=== PATIENT | female | born 1950 | race Caucasian/White ===

== ENCOUNTER 2016-08-13 10:58 | Inpatient (IN) | payer MEDICAID ==
[~2016-08-13] VITALS: Ht 157.5 cm; Wt 131.5 kg
[~2016-08-13 10:58] MED LIST: BUDE180A ORAL INH; CLOP75TA33 PO; LEVO25TA PO; NYST10PO TOP; PANT40TA27 PO
--- OUTSIDE RECORDS SUMMARY | 2016-08-13 11:22 | XMS REPORT | Continuity of Care Document ---
Author Author [facility] Organization [facility] Address Unknown Phone Unavailable Support Name Relationship Address Phone ELIDA TORRES Caregiver [address] [place] [address] QUINCY CORNELIUS APRN Caregiver [address] [place] [address] MARCELO VACA MD Caregiver [address] [place] [phone] IRMA CORNELIUS Next Of Kin [address] [place] [address] Insurance Providers Payer Name Policy Number Subscriber Name Relationship [employer] [id number] Lilly Gregory 20 Self Advance Directives Directive Response Recorded Date/Time Advanced Directives Type None 01/26/14 2:31pm Ordered Resuscitation Status Full Code, unverified 01/26/14 2:21pm Resuscitation Documents on File No 01/26/14 3:19pm Chief Complaint and Reason for Visit Chief Complaint HYPERGLYCEMIA,DEHYDRATION,HYPONATREMIA,RENAL INSUF Reason for Visit Hyperglycemia Hyponatremia Renal insufficiency UTI (urinary tract infection) Dehydration Tinea corporis Diabetes mellitus type 2 with hyperosmolarity, uncontrolled COPD (chronic obstructive pulmonary disease) CAD (coronary artery disease) Morbid obesity with BMI of 40.0-44.9, adult HTN (hypertension) Hypokalemia Hypothyroidism Problems Medical Problems Problem Onset Date Status lumbar strain/spasms Unknown Active Hyperglycemia Unknown Active Hyponatremia Unknown Resolved Renal insufficiency Unknown Active UTI (urinary tract infection) Unknown Active Dehydration Unknown Active Tinea corporis Unknown Active Diabetes mellitus type 2 with hyperosmolarity, uncontrolled Unknown Active COPD (chronic obstructive pulmonary disease) Unknown Active CAD (coronary artery disease) Unknown Active Morbid obesity with BMI of 40.0-44.9, adult Unknown Active HTN (hypertension) Unknown Active Hypokalemia Unknown Active Hypothyroidism Unknown Active Medications Medication Dose Route Sig Days/Qty Instructions Order Date Discontinued Date Status Acetaminophen 1,000 Mg PO PRN 12/17/12 12/18/12 Discontinued Alprazolam 1 Mg PO DAILY 05/03/12 05/04/12 Discontinued Hydrochlorothiazide 25 Mg PO DAILY 05/03/12 01/31/14 Discontinued Levothyroxine Sodium 25 Mcg PO DAILY 05/03/12 Active Lisinopril 20 Mg PO DAILY 05/03/12 05/04/12 Discontinued Meclizine Hcl 25 Mg PO TWICE A DAY 05/03/12 05/04/12 Discontinued Metformin Hcl 500 Mg PO TWICE A DAY 05/03/12 06/18/12 Discontinued Nitroglycerin 0.4 Mg SL PRN 05/03/12 Active Clopidogrel Bisulfate 75 Mg PO DAILY 05/03/12 Active Simvastatin 40 Mg PO DAILY 05/03/12 Active Metoprolol Succinate 50 Mg PO DAILY 05/03/12 Active Alprazolam 2 Mg PO THREE TIMES A DAY 05/03/12 05/04/12 Discontinued Alprazolam 0.5 Mg PO Every 8 Hours 05/04/12 Active Meclizine Hcl 25 Mg PO THREE TIMES A DAY 05/04/12 Active Gabapentin 300 Mg PO TWICE A DAY 05/04/12 Active Sitagliptin Phosphate 50 Mg PO DAILY 30 Qty 01/26/14 01/31/14 Discontinued Pantoprazole Sodium 40 Mg PO DAILY 30 Qty 01/26/14 Active Albuterol Sulfate 2 Puff INH EVERY 4 HOURS PRN PRN ORDERS 7 Qty Active Multivit with Calcium,Iron,Min 1 Tab PO DAILY 01/26/14 Active Hum Insulin NPH/Reg Insulin Hm 96 Unit SQ DAILY MORNING INSULIN 30 Days 01/31/14 Active Hum Insulin NPH/Reg Insulin Hm 60 Unit SQ DAILY AFTER NOON INSULIN 30 Days 01/31/14 Active Nystatin 1 Applic TOP THREE TIMES A DAY For Yeast 30 Days 01/31/14 Active Amoxicillin/Potassium Clav 1 Tab PO TWICE A DAY For UTI 10 Qty Active Lisinopril 5 Mg PO BEDTIME For HYPERTENSION 30 Days 01/31/14 Active Social History Social History Problem Response Recorded Date/Time Smoking Status Heavy Smoker 01/27/2014 10:41am When did patient START smoking? "when i was 15 years old" 01/27/2014 10:41am Chewing Tobacco Status No 01/25/2013 12:26am Hx Substance Use No 01/26/2014 11:20am Hx Alcohol Use No 01/26/2014 11:20am Has the pt used tobacco in the last 12 months No 01/27/2014 10:41am Query Response Start Date Stop Date Smoking Status Current every day smoker Hospital Discharge Instructions Instructions: Care Instructions: Reason for Hospitalization: Uncontrolled Type 2 Diabetes I was in the hospital because (patient own words): "Because the sore on my feets" Discharge Diet: 1800 kcal ADA low sodium Discharge Activity: As tolerated Follow Up Appointments[facility] - Needs BMP due to meds [phone] 02/07 at 09:15 Dr Segovia for Diabetes F/U [phone] left message [facility] on 02/06/14 at 3:30pm Patient Instructions: if blood sugar drops below 70, use glucose tabs as directed. Wound/Incision Care: See Wound care note Condition at time of discharge: Good Condition at time of discharge: Good 2.Do not pick at it or scrub it while showering. 3.If the dressing begins to pull up, secure it with 4x4 gauze pad and tape. 4.You may shower; however, do not submerge yourself in water until the incision is completely healed. Mepilex 1.Dressing to remain in place until your follow up appointment. 2.If this dressing starts peeling up slightly, it may be reinforced, if it peels excessively, notify your surgeon's office. 3.You may shower with the dressing in place, but do not submerge in water 4.Do not allow water to seep under the dressing, if it should seep under, remove the dressing and notify your surgeon. Notify Physician If: Call your Surgeon if you have: 1.Chest pain, difficulty breathing, fever>100.5 degrees, chills, heart rate >100, confusion, or persistent nausea/vomitting. 2.Severe pain, swelling, redness, or warmth in either of your legs. 3.During office hours, call [phone] 4. After hours, please call [facility] at [phone], and have the popcorn machine operator page your Surgeon IN THE EVENT OF AN EMERGENCY, seek medical care at the nearest Emergency Room General Information: Dr. Grady wants to see you in follow up on 02/07/14. You will need to get an INR on 02/01/[address] Grady with the result [phone]. Condition at time of discharge: Good Plan of Care Discharge Date 01/31/14 6:58pm Disposition 01 DISCHARGED HOME, SELF-CARE Instructions/Education Provided DI for Dehydration -- Adult DI for Hypoglycemia Prescriptions See Medications Section Functional Status Query Response Date Recorded Physical Hygiene Self January 31, 2014 3:24pm Disabilities Visual January 31, 2014 3:24pm Devices Used Glasses Walker January 31, 2014 3:24pm Dressing Self January 31, 2014 3:24pm Ambulation Self January 31, 2014 3:24pm Diet Self January 31, 2014 3:24pm Mental Status Alert Occasionally Confused Oriented January 31, 2014 3:24pm Disabilities Visual January 31, 2014 3:24pm Devices Used Glasses Walker January 31, 2014 3:24pm Physical Hygiene Self January 31, 2014 3:24pm Dressing Self January 31, 2014 3:24pm Ambulation Self January 31, 2014 3:24pm Diet Self January 31, 2014 3:24pm Allergies, Adverse Reactions, Alerts Allergen Type Severity Reaction Status Last Updated Aspirin Allergy Active 01/25/13 Immunizations Name Given Type Hx Influenza Vaccination No Historical Hx Pneumococcal Vaccination No Historical Hx Influenza Vaccination No Historical Vital Signs Acute Vital Signs Vital Response Date/Time Temperature (Fahrenheit) 96.6 deg F (96.8 - 99.1) Temperature (Calculated Celsius) 35.23947 degrees C (36.0 - 37.3) Temperature Source Oral Pulse Rate (adult) 88 bpm (60 - 100) Respiratory Rate 20 breaths/min (10 - 20) O2 Sat by Pulse Oximetry 93 % (90 - 100) Oxygen Delivery Method Room Air Blood Pressure 134/73 mm Hg Blood Pressure Source Automatic Cuff Height 5 ft 2 in Weight 232 lb Body Mass Index 42.0 kg/m^2 Results Test Source Date Result Interp. Ref. Range Comments Acetone Level January 26, 2014 12:38pm Negative - Activated Partial Thromboplast Time January 25, 2013 12:40am 33.7 SEC N 24-36 Alanine Aminotransferase (ALT/SGPT) January 26, 2014 3:03pm 25 U/L N 9 -52 Albumin January 26, 2014 3:03pm 3.3 G/DL L 3.5-5.0 Albumin/Globulin Ratio January 26, 2014 3:03pm 1.1 RATIO N 1.1-2.2 Alkaline Phosphatase January 26, 2014 3:03pm 101 U/L N 38-126 Amylase Level January 26, 2014 12:38pm 53 U/L N 30-110 Anion Gap January 31, 2014 4:53am 9 MEQ/L N 5-15 Aspartate Amino Transf (AST/SGOT) January 26, 2014 3:03pm 27 U/L N 14- 36 BUN/Creatinine Ratio January 31, 2014 4:53am 13 RATIO N 6-26 Basophils # (Auto) January 31, 2014 4:53am 0.0 T/MM3 N 0-0.2 Basophils (%) (Auto) January 31, 2014 4:53am 0.6 % N 0-2 Blood Urea Nitrogen January 31, 2014 4:53am 16.0 MG/DL N 7-17 Calcium Level January 31, 2014 4:53am 9.3 MG/DL N 8.4-10.2 Calculated Osmolality January 31, 2014 4:53am 280 MOSM/KG N 261-280 Carbon Dioxide Level January 31, 2014 4:53am 26 MEQ/L N 22-30 Chemistry Specimen Hemolysis January 31, 2014 4:53am < 15 0-25 0-25 : No Hemolysis.26-70: Slight Hemolysis - can falsely elevate K and Urine Protein. 71-285: Moderate Hemolysis - can falsely elevate K, Troponin I, CA 19-9, PTH, CSF GLucose, and Urine Protein, and can falsely decrease Phenytoin. 286-999: Gross Hemolysis - can falsely elevate K, Troponin I, CA 19-9, PTH, CSF Glucose, and Urine Protine, and can falsely decrease Phenytoin. Recommend specimen recollection. Chloride Level January 31, 2014 4:53am 107 MEQ/L N 98-107 Cholesterol Level May 04, 2012 11:25am 138 MG/DL N 132-199 COMMENT WILL CALL WHEN ADMITTED Cholesterol/HDL Ratio May 04, 2012 11:25am 4.6 RATIO H 0-4.0 COMMENT WILL CALL WHEN ADMITTED Creatinine January 31, 2014 4:53am 1.2 MG/DL DN 0.7-1.2 Eosinophils # (Auto) January 31, 2014 4:53am 0.4 T/MM3 N 0-0.5 Eosinophils # (Manual) January 27, 2014 4:52am 0.3 T/MM3 N 0-0.5 Eosinophils % (Manual) January 27, 2014 4:52am 3.0 % N 0-4 Eosinophils (%) (Auto) January 31, 2014 4:53am 5.9 % H 0-4 Folate January 26, 2014 12:38pm > 20.0 NG/ML H 2.76-20 NORMAL ADULT RANGE: 2.76->20 ng/mL Globulin January 26, 2014 3:03pm 2.9 G/DL N 2.4-3.6 Glomerular Filtration Rate Calc January 31, 2014 4:53am 46 - Glucometer January 31, 2014 1:55pm 261 mg/dL H 65-110 Glucose Level January 31, 2014 4:53am 198 MG/DL H 65-110 HDL Cholesterol Direct May 04, 2012 11:25am 30 MG/DL L 40-60 COMMENT WILL CALL WHEN ADMITTED Hematocrit January 31, 2014 4:53am 39.9 % N 36-46 Hemoglobin January 31, 2014 4:53am 12.4 GM/DL N 12-16 Hemoglobin A1c January 26, 2014 12:38pm < 14.0 % H 6-7 <6.0 NON- DIABETIC RANGE6.0-7.0 ADA THERAPEUTIC RANGE >7.0 ACTION SUGGESTED Icterus Index January 31, 2014 4:53am < 2 0-7 Immature Granulocyte # (Auto) January 31, 2014 4:53am 0.04 T/MM3 H 0.00-0.03 Immature Granulocyte % (Auto) January 31, 2014 4:53am 0.6 % H 0.0-0.5 LDL Cholesterol, Calculated May 04, 2012 11:25am 108 N 66-159 COMMENT WILL CALL WHEN ADMITTED Lab Scanned Report February 02, 2013 10:59am LAB RESULTS - SCANNED [id number] - Lipase January 26, 2014 12:38pm 292 U/L N 23-300 Lymphocytes # (Auto) January 31, 2014 4:53am 2.1 T/MM3 N 1-4.8 Lymphocytes # (Manual) January 27, 2014 4:52am 2.7 T/MM3 N 1-4.8 Lymphocytes % (Manual) January 27, 2014 4:52am 26.0 % N 23-45 Lymphocytes (%) (Auto) January 31, 2014 4:53am 31.2 % N 23-45 Magnesium Level January 26, 2014 12:38pm 1.7 MG/DL N 1.6-2.3 Mean Corpuscular Hemoglobin January 31, 2014 4:53am 29.7 UUG N 26-34 Mean Corpuscular Hemoglobin Concent January 31, 2014 4:53am 31.1 GM/DL N 31-37 Mean Corpuscular Volume January 31, 2014 4:53am 95.5 UM3 N 80-100 Mean Platelet Volume January 31, 2014 4:53am 10.1 UM3 N 9.4-12.4 Monocytes # (Auto) January 31, 2014 4:53am 0.6 T/MM3 N 0-0.8 Monocytes # (Manual) January 27, 2014 4:52am 1.1 T/MM3 H 0-0.8 Monocytes % (Manual) January 27, 2014 4:52am 10.0 % H 0-9.0 Monocytes (%) (Auto) January 31, 2014 4:53am 8.4 % N 0-9.0 Neutrophils # (Auto) January 31, 2014 4:53am 3.6 T/MM3 N 1.8-7.7 Neutrophils # (Manual) January 27, 2014 4:52am 6.4 T/MM3 N 1.8-7.7 Neutrophils % (Manual) January 27, 2014 4:52am 61.0 % N 33-66 Neutrophils (%) (Auto) January 31, 2014 4:53am 53.3 % N 33-66 Platelet Count January 31, 2014 4:53am 216 T/MM3 N 130-400 Potassium Level January 31, 2014 4:53am 4.6 MEQ/L N 3.6-5 Prealbumin January 26, 2014 12:38pm 23.7 MG/DL N 17.6-36.0 Prothromb Time International Ratio January 25, 2013 12:40am 0.99 N 0.86-1.10 THERAPUTIC RANGE=2.00-3.00 FOR ANTI-THROMBOSIS THERAPUTIC RANGE=2.50 -3.50 FOR IMPLANTED VALVE RDW Standard Deviation January 31, 2014 4:53am 45.2 FL N 36.9-50.2 Red Blood Count January 31, 2014 4:53am 4.18 M/MM3 N 4.00-5.20 Sodium Level January 31, 2014 4:53am 142 MEQ/L N 134-144 Thyroid Stimulating Hormone (TSH) January 26, 2014 12:38pm 1.16 MIU/L N 0.47-4.68 Total Bilirubin January 26, 2014 3:03pm 0.60 MG/DL N 0.20-1.30 Total Protein January 26, 2014 3:03pm 6.2 G/DL L 6.3-8.2 Triglycerides Level May 04, 2012 11:25am 160 MG/DL H 35-135 COMMENT WILL CALL WHEN ADMITTED Turbidity January 31, 2014 4:53am < 20 0-20 Urine Bacteria January 26, 2014 12:30pm 4+ H - Has specimen been collected/obtained? Y Urine Bilirubin January 26, 2014 12:30pm Negative - Has specimen been collected/obtained? Y Urine Blood January 26, 2014 12:30pm 3+ H - Has specimen been collected/obtained? Y Urine Collection Type January 26, 2014 12:30pm Straight cath - Has specimen been collected/obtained? Y Urine Color January 26, 2014 12:30pm Yellow - Has specimen been collected/obtained? Y Urine Culture Indicated January 26, 2014 12:30pm Cult reflexed &setup - Has specimen been collected/obtained? Y Urine Glucose (UA) January 26, 2014 12:30pm 3+ H - Has specimen been collected/obtained? Y Urine Ketones January 26, 2014 12:30pm Negative - Has specimen been collected/obtained? Y Urine Leukocyte Esterase January 26, 2014 12:30pm Trace H - Has specimen been collected/obtained? Y Urine Microalbumin December 18, 2011 11:20am 50.6 MG/L H 0-17 Urine Nitrite January 26, 2014 12:30pm Negative - Has specimen been collected/obtained? Y Urine Protein January 26, 2014 12:30pm Negative - Has specimen been collected/obtained? Y Urine RBC January 26, 2014 12:30pm UNABLE TO DETERMINE DUE TO AMOUNT OF WBCS.DAP/LAB - Urine Specific [place] January 26, 2014 12:30pm 1.025 - Has specimen been collected/obtained? Y Urine Squamous Epithelial Cells January 26, 2014 12:30pm None seen - Has specimen been collected/obtained? Y Urine Turbidity January 26, 2014 12:30pm Turbid - Has specimen been collected/obtained? Y Urine Urobilinogen January 26, 2014 12:30pm 0.2 EU/DL - Has specimen been collected/obtained? Y Urine WBC January 26, 2014 12:30pm Tntc /HPF H - Has specimen been collected/obtained? Y Urine Yeast January 26, 2014 12:30pm 4+ H - Has specimen been collected/obtained? Y Urine pH January 26, 2014 12:30pm 5.5 - Has specimen been collected /obtained? Y VLDL Cholesterol May 04, 2012 11:25am 32.0 MG/DL H 0-28 COMMENT WILL CALL WHEN ADMITTED Venous Blood Lactate January 26, 2014 12:38pm 3.7 MMOL/L H 0.6-2.2 Vitamin B12 Level January 26, 2014 12:38pm 954 PG/ML H 239-931 White Blood Count January 31, 2014 4:53am 6.8 T/MM3 N 4.5-11.0 Blood Culture Blood January 26, 2014 12:39pm NO GROWTH AFTER 5 DAYS Urine Culture Urine, Straight Cath January 26, 2014 1:05pm Amina Albicans Name: LILLY GREGORY Unit #: [id number] : 1950 Sex: F Loc / Svc: ED DOS: 01/26/14 Signed Report #: [id number] DIAGNOSTIC IMAGING REPORT TYPE OF EXAM: FOOT RIGHT 3 VIEWS Dictated By: MEGHAN TORRES MD Indication: ITS.REASON: FALL, RIGHT FOOT PAIN Comparison: None Findings: There is no acute fracture, dislocation or malalignment identified. Bones are demineralized. Degenerative changes in the first MTP joint and interphalangeal joints of the toes. Impression: No acute osseous abnormality. . Procedures No known history of procedures. Encounters Encounter Location Date/Time Discharged Inpatient [facility] 01/26/14 2:29pm Recent Diagnosis Hyperglycemia Hyponatremia Renal insufficiency UTI (urinary tract infection) Dehydration Tinea corporis Diabetes mellitus type 2 with hyperosmolarity, uncontrolled COPD (chronic obstructive pulmonary disease) CAD (coronary artery disease) Morbid obesity with BMI of 40.0-44.9, adult HTN (hypertension) Hypokalemia Hypothyroidism
--- OUTSIDE RECORDS SUMMARY | 2016-08-13 11:22 | XMS REPORT | Referral Summary ---
Author Author [facility] Organization [facility] Address Unknown Phone Unavailable Care Team Providers Care Foreign Banknote Teller Name Role Phone Bharathi Adrian Primary Care Physician [phone] Encounter [facility] [id number] Date(s): 04/26/16 - 05/13/16 [facility] [address] [place], [place] [address] Discharge Disposition: 01-Home or Self Care Attending Physician: Arnie Saha MD Admitting Physician: Arnie Saha MD Referring Physician: Que Kovacs DO Vital Signs No data available for this section Problem List Condition Effective Dates Status Health Status Informant Acute Active pain(Confirmed) Alteration in Active nutrition(Confirmed) 1 At risk for Active falls(Confirmed)2 At risk for Active injury(Confirmed)3 At risk of pressure Active sore(Confirmed) Impaired skin Active integrity(Confirmed) 4 Ineffective airway Active clearance(Confirmed) 5 1Problem added automatically by system based on initiation of Alteration in Nutrition Plan of Care 2This problem was added by Discern Expert. 3Problem added automatically by system based on initiation of Risk for Injury Plan of Care 4Problem added automatically by system based on initiation of Impaired Skin Integrity Plan of Care 5Problem added automatically by system based on initiation of Ineffective Airway Clearance Plan of Care Allergies, Adverse Reactions, Alerts Substance Reaction Severity Status aspirin Active buPROPion Active heparin containing Active compounds1 1devloped 04/2016 Medications ALPRAZolam 0.5 mg, Oral, TID, 0 Refill(s) Start Date: 04/26/16 Status: Ordered Bactrim DS 800 mg-160 mg oral tablet 1 tabs, Oral, BID, 0 Refill(s) Start Date: 04/26/16 Status: Ordered clopidogrel 75 mg, Oral, Daily, 0 Refill(s) Start Date: 04/26/16 Status: Ordered Communication Transferred from [facility], refer to inpatient MAR, 0 Refill(s) Start Date: 04/26/16 Status: Ordered furosemide 40 mg, Oral, BID, 0 Refill(s) Start Date: 04/26/16 Status: Ordered gabapentin 300 mg, Oral, BID, 0 Refill(s) Start Date: 04/26/16 Status: Ordered Klor-Con 20 mEq, Oral, Daily, 0 Refill(s) Start Date: 04/26/16 Status: Ordered levothyroxine 25 mcg, Oral, Daily, 0 Refill(s) Start Date: 04/26/16 Status: Ordered lisinopril 20 mg, Oral, Daily, 0 Refill(s) Start Date: 04/26/16 Status: Ordered meclizine 25 mg, Oral, TID, 0 Refill(s) Start Date: 04/26/16 Status: Ordered multivitamin Oral, Daily, 0 Refill(s) Start Date: 04/26/16 Status: Ordered Nitrostat 0.4 mg sublingual tablet 0.4 mg 1 tabs, SubLingual, q5min, as needed for chest pain Start Date: 04/26/16 Status: Ordered NovoLIN 70/30 66 units, SubCutaneous, With Breakfast, 0 Refill(s) Start Date: 04/26/16 Status: Ordered NovoLIN 70/30 70 units, SubCutaneous, With Dinner, 0 Refill(s) Start Date: 04/26/16 Status: Ordered pantoprazole 40 mg, Oral, Daily, 0 Refill(s) Start Date: 04/26/16 Status: Ordered Proventil HFA 90 mcg/inh inhalation aerosol 2 puffs, Inhalation, QID, as needed for wheezing, 0 Refill(s) Start Date: 04/26/16 Status: Ordered Pulmicort Flexhaler 180 mcg/inh inhalation powder 180 mcg, Inhalation, BID, 0 Refill(s) Start Date: 04/26/16 Status: Ordered simvastatin 40 mg, Oral, Daily, 0 Refill(s) Start Date: 04/26/16 Status: Ordered Results No data available for this section Immunizations Given and Recorded Vaccine Date Status Refusal Reason influenza virus vaccine, inactivated 05/04/16 Given pneumococcal 23-polyvalent vaccine 05/04/16 Given Procedures No data available for this section Social History Social History Type Response Smoking Status Current every day smoker; Type: Cigarettes; Tobacco use per day: 1 Pack Assessment and Plan No data available for this section
--- OUTSIDE RECORDS SUMMARY | 2016-08-13 11:22 | XMS REPORT | Continuity of Care Document ---
Author Author [facility] Organization [facility] Address Unknown Phone Unavailable Allergies Medications Problems Procedures Results Encounters ACCT No. Visit Date/Time Discharge Status Pt. Type Provider Facility Loc./Unit Complaint [id number] 02/12/2015 09:37:00 02/12/2015 23 :59:59 CLS Outpatient
--- OUTSIDE RECORDS SUMMARY | 2016-08-13 11:23 | XMS REPORT ---
Author Danika Salgado [employer] Address Unknown Phone Unavailable Care Team Providers Care Instructor Decorating Name Role Phone Danika Doll CP Unavailable Allergies, Adverse Reactions, Alerts Substance Reaction Event Type Aspirin bleeding Drug Allergy Problems Problem Type Condition Code Onset Dates Condition Status Problem Personal history of nicotine dependence Z87.891 Active Problem Dizziness and giddiness R42 Active Problem Gastro-esophageal reflux disease without esophagitis K21.9 Active Problem Essential (primary) hypertension I10 Active Problem Hypoglycemia, unspecified E16.2 Active Problem Venous insufficiency of both lower extremities I87.2 Active Problem Hypothyroidism, unspecified E03.9 Active Problem Type 2 diabetes mellitus without complications E11.9 Active Problem Altered mental status, unspecified R41.82 Active Problem Other hyperlipidemia E78.4 Active Assessment Other polyneuropathy G62.89 Active Assessment Generalized edema R60.1 Active Assessment Cellulitis of buttock L03.317 Active Problem Panic disorder [episodic paroxysmal anxiety] without agoraphobia F41.0 Active Problem Chronic kidney disease, stage 3 (moderate) N18.3 Active Assessment Venous insufficiency of both lower extremities I87.2 Active Problem Chronic obstructive pulmonary disease, unspecified J44.9 Active Problem Generalized anxiety disorder F41.1 Active Problem Opioid dependence, 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 Must last 30 days every 6 hours 1 tablet as needed Bactrim DS [facility] [address]-39 800-160 MG Orally Twice a day Apr 22, 2016 1 tablet Levothyroxine Sodium [facility] [address]-81 25 MCG Orally Once a day TAKE ONE TABLET BY MOUTH EVERY MORNING ON AN EMPTY STOMACH Furosemide [facility] [address]-62 40 MG Orally Twice a day at 8am and 3 pm May 29, 2015 1 tablet Pantoprazole Sodium [facility] [address]-69 40 MG Orally Once a day 1 tablet Potassium Chloride ER [facility] [address]-60 10 MEQ Orally Twice a day 1 capsule Novolin 70/30 [facility] [address]-63 (70-30) 100 UNIT/ML Subcutaneous twice a day 66 units am, 70/72 evenint Simvastatin [facility] [address]-38 40 MG Orally Once a day Jan 23, 2015 1 tablet in the evening Alprazolam [facility] [address]-88 0.5 MG Orally Three times a day Mar 13, 2015 1 tablet Walker [facility] [address]408 1 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 Dx code E11.9 3 Times a day Dec 25, 2015 as directed Lisinopril [facility] 83999934102 20 Orally Once a day 1 tablet Plavix [facility] 40305048142 75 TAKE ONE TABLET BY MOUTH DAILY Procedures Procedure Coding System Code Date OFFICE VISIT, EST-MOD. COMPLEXITY (25 MIN) CPT-4 50712 Apr 21, 2016 Vital Signs Date/Time: Apr 21, 2016 Cardiac Monitoring Heart Rate 82 /min Temperature 98.6 F Height 61.5 in Oximetry 86 % Respiratory Rate 26 /min Blood Pressure Diastolic 43 mm Hg Blood Pressure Systolic 163 mm Hg Results No Known Results Summary Purpose [employer]Clinical[employer] Submission
--- OUTSIDE RECORDS SUMMARY | 2016-08-13 11:24 | XMS REPORT ---
Author Author Titus Gandhi Organization [employer] Address Unknown Phone Unavailable Care Team Providers Care Software Solutions Architect Name Role Phone Titus Gandhi CP Unavailable Allergies, Adverse Reactions, Alerts Substance [...] R41.82 Active Problem Other hyperlipidemia E78.4 Active Problem Panic disorder [episodic paroxysmal anxiety] without agoraphobia F41.0 Active Problem Chronic kidney disease, stage 3 (moderate) N18.3 Active Assessment Cutaneous abscess of limb, unspecified L02.419 Active Problem Chronic obstructive pulmonary disease, unspecified J44.9 Active Problem Generalized anxiety disorder F41.1 Active Problem Opioid dependence, in remission F11.21 Active Medications Medication Code System Code Instructions Start Date End Date Status Dosage [employer] Test NDC 0 none In Vitro. 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 Must last 30 days every 6 hours 1 tablet as needed Novolin 70/30 [facility] [address]-30 (70-30) 100 UNIT/ML Subcutaneous twice a day 66 units am, 70/72 evenint Alprazolam [facility] [address]-79 0.5 MG Orally Three times a day Mar 13, 2015 1 tablet Levothyroxine Sodium [facility] [address]-35 25 MCG Orally Once a day TAKE ONE TABLET BY MOUTH EVERY MORNING ON AN EMPTY STOMACH Simvastatin [facility] [address]-24 40 MG Orally Once a day Jan 23, 2015 1 tablet in the evening Pantoprazole Sodium [facility] [address]-08 40 MG Orally Once a day 1 tablet Procedures Procedure Coding System Code Date ANAEROBIC-WOUND CULTURE CPT-4 10896 Apr 21, 2016 AEROBIC-WOUND CULTURE CPT-4 61449 Apr 21, 2016 Lidocaine CPT-4 J2001 Apr 21, 2016 DRAINAGE & INCOSION OF ABSCESS, COMPLICATED CPT-4 30604 Apr 21, 2016 Vital Signs Date/Time: Apr 21, 2016 Cardiac Monitoring Heart Rate 82 /min Temperature 98.6 F Height 61.5 in Respiratory Rate 26 /min Blood Pressure Diastolic 43 mm Hg Blood Pressure Systolic 163 mm Hg Results No Known Results Summary Purpose [employer] Submission
--- OUTSIDE RECORDS SUMMARY | 2016-08-13 11:24 | XMS REPORT ---
Author Author Ema Vigil [employer] Address Unknown Phone Unavailable Care Team Providers Care Scene Shifter Name Role Phone Ema Vigil CP Unavailable Allergies, Adverse Reactions, Alerts Substance Reaction Event Type Aspirin bleeding Drug Allergy Problems Problem Type Condition Code Onset Dates Condition Status Problem Panic disorder [episodic paroxysmal anxiety] without agoraphobia F41.0 Active Problem Chronic obstructive pulmonary disease, unspecified J44.9 Active Problem Chronic kidney disease, stage 3 (moderate) N18.3 Active Problem Hypothyroidism, unspecified E03.9 Active Problem Type 2 diabetes mellitus without complications E11.9 Active Problem Other hyperlipidemia E78.4 Active Problem Personal history of nicotine dependence Z87.891 Active Problem Opioid dependence, in remission F11.21 Active Problem Dizziness and giddiness R42 Active Problem Gastro-esophageal reflux disease without esophagitis K21.9 Active Assessment Opioid dependence, in remission F11.21 Active Assessment Panic disorder [episodic paroxysmal anxiety] without agoraphobia F41.0 Active Assessment Generalized anxiety disorder F41.1 Active Problem Generalized anxiety disorder F41.1 Active Medications Medication Code System Code Instructions Start Date End Date Status Dosage Lisinopril [facility] 30533288285 20 Orally Once a day 1 tablet Plavix [facility] 76868355834 75 TAKE ONE TABLET BY MOUTH DAILY Meclizine HCl [facility] 34542331400 25 Orally. 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 Dx code E11.9 3 Times a day Dec 25, 2015 as directed Simvastatin [facility] [address]-47 40 MG Orally Once a day Jan 23, 2015 1 tablet in the evening Proventil HFA [facility] 30370171928 90 INHALE TWO PUFFS BY MOUTH EVERY 4 HOURS NEEDED Novolin 70/30 [facility] [address]-05 (70-30) 100 UNIT/ML Subcutaneous twice a day 70/ am, 70/74 evenint Alprazolam [facility] [address]-37 0.5 MG Orally Three times a day Mar 13, 2015 1 tablet Levothyroxine Sodium [facility] [address]-38 25 MCG Orally Once a day TAKE ONE TABLET BY MOUTH EVERY MORNING ON AN EMPTY STOMACH Procedures Procedure Coding System Code Date OFFICE VISIT, EST-MOD. COMPLEXITY (25 MIN) CPT-4 22564 Mar 14, 2016 Vital Signs Date/Time: Mar 14, 2016 Temperature 97.8 F Height 61.5 in Weight 313 lbs Blood Pressure Diastolic 80 mm Hg Blood Pressure Systolic 120 mm Hg Cardiac Monitoring Heart Rate 82 /min BMI 58.18 Index Respiratory Rate 20 /min Results No Known Results Summary Purpose [employer] Submission
--- OUTSIDE RECORDS SUMMARY | 2016-08-13 11:24 | XMS REPORT ---
Author Author Danika Doll Organization [employer] Address Unknown Phone Unavailable Care Team Providers Care Live Source Operator Name Role Phone Danika Doll CP Unavailable Allergies No Known Allergies Problems Problem Type Condition Code Onset Dates Condition Status Problem Opioid dependence, in remission F11.21 Active Problem Gastro-esophageal reflux disease without esophagitis K21.9 Active Problem Personal history of nicotine dependence Z87.891 Active Problem Hypoglycemia, unspecified E16.2 Active Problem Altered mental status, unspecified R41.82 Active Problem Essential (primary) hypertension I10 Active Problem Type 2 diabetes mellitus without complications E11.9 Active Problem Dizziness and giddiness R42 Active Problem Other hyperlipidemia E78.4 Active Problem Hypothyroidism, unspecified E03.9 Active Problem Generalized anxiety disorder F41.1 Active Problem Panic disorder [episodic paroxysmal anxiety] without agoraphobia F41.0 Active Problem Chronic kidney disease, stage 3 (moderate) N18.3 Active Problem Chronic obstructive pulmonary disease, unspecified J44.9 Active Medications No Known Medications Results No Known Results Summary Purpose [employer] Submission
--- OUTSIDE RECORDS SUMMARY | 2016-08-13 11:24 | XMS REPORT ---
Author Author Ema Vigil [facility] [employer] Address Unknown Phone Unavailable Care Team Providers Care Tai [place] Instructor Name Role Phone Ema Vigil CP Unavailable Allergies No Known Allergies Problems [...] Instructions Start Date End Date Status Dosage Alprazolam [facility] [address]-51 0.5 MG Orally Three times a day Mar 13, 2015 1 tablet Results No Known Results Summary Purpose [employer] Submission
--- OUTSIDE RECORDS SUMMARY | 2016-08-13 11:24 | XMS REPORT | Continuity of Care Document ---
Author Author [facility] Organization [facility] Address Unknown Phone Unavailable Support Name Relationship Address Phone QUINCY CORNELIUS APRN Caregiver [address] [place] [address] PIERCE DUKE MD Caregiver [address] [place] [address] [place] [phone] IRMA CORNELIUS Next Of Kin [address] [place] [address] Insurance Providers Payer Name Policy Number Subscriber Name Relationship [employer] [id number] Lilly Gregory 20 Self Chief Complaint and Reason for Visit Chief Complaint Fall Reason for Visit Hyperglycemia Tinea corporis Hyponatremia Renal insufficiency [id number] Dehydration Problems Medical Problems Problem Onset Date Status [...] Active Hypokalemia Unknown Active Hypothyroidism Unknown Active Left hip pain Unknown Active Left hip pain Unknown Active Medications Medication Dose Route Sig Days/Qty Instructions Order Date Discontinued Date Status Acetaminophen 1,000 Mg PO PRN 05/03/12 05/04/12 Discontinued Alprazolam 1 Mg PO DAILY 05/03/12 05/04/12 Discontinued Hydrochlorothiazide 25 Mg PO DAILY 05/03/12 01/31/14 Discontinued Levothyroxine Sodium 25 Mcg PO DAILY 05/03/12 Active Lisinopril 20 Mg PO DAILY 05/03/12 05/04/12 Discontinued Meclizine Hcl 25 Mg PO TWICE A DAY 05/03/12 05/04/12 Discontinued Metformin Hcl 500 Mg PO TWICE A DAY 05/03/12 06/18/12 Discontinued Nitroglycerin 0.4 Mg SL PRN 05/03/12 Active Alprazolam 2 Mg PO THREE [...] AFTER NOON INSULIN 30 Days 01/31/14 Active Amoxicillin/Potassium Clav 1 Tab PO TWICE A DAY For UTI 10 Qty Active Lisinopril 5 Mg PO BEDTIME For HYPERTENSION 30 Days 01/31/14 Active Social History Social History Problem Response Recorded Date/Time Smoking Status Current every day smoker 02/13/2014 2:20pm When did patient START smoking? AGE 15 02/13/2014 2:20pm Chewing Tobacco Status No 01/25/2013 12:26am Hx [...] week - Needs BMP due to meds [phone] 02/07 at 09:15 Dr Segovia for Diabetes F/U [phone] left message [facility] on 02/06/14 at 3:30pm Patient Instructions: if blood sugar drops below 70, use glucose tabs as directed. Wound/Incision Care: See Wound care note Condition at time of discharge: Good see patient instructions Plan of Care Discharge Date 01/31/14 6:58pm Disposition 02 TO [facility] Condition at Discharge Improved Instructions/Education Provided DI for Dehydration -- Adult DI for Hypoglycemia Prescriptions See Medications Section Referrals QUINCY CORNELIUS APRN Functional Status Query Response Date Recorded Physical Hygiene Self January 31, 2014 3:24pm Disabilities None February 13, 2014 2:20pm Devices Used None February 13, 2014 2:20pm Dressing Assist February 13, 2014 2:20pm Ambulation Assist February 13, 2014 2:20pm Diet Self February 13, 2014 2:20pm Mental Status Alert February 13, 2014 4:00pm Disabilities None February 13, 2014 2:20pm Devices Used None February 13, 2014 2:20pm Physical Hygiene Self January 31, 2014 3:24pm Dressing Assist February 13, 2014 2:20pm Ambulation Assist February 13, 2014 2:20pm Diet Self February 13, 2014 2:20pm Allergies, Adverse Reactions, Alerts Allergen Type Severity Reaction Status Last Updated Aspirin Allergy Unknown Active 02/13/14 Immunizations Name Given Type Hx Influenza Vaccination No Historical Hx Pneumococcal Vaccination No Historical Hx Influenza Vaccination No Historical Vital Signs Acute Vital Signs Vital Response Date/Time Temperature (Fahrenheit) 99.3 deg F (96.8 - 99.1) Temperature (Calculated Celsius) 37.15505 degrees C (36.0 - 37.3) Pulse Rate (adult) 88 bpm (60 - 100) Respiratory Rate 20 breaths/min (10 - 20) O2 Sat by Pulse Oximetry 92 % (90 - 100) Blood Pressure 138/83 mm Hg Results Test Source Date Result Interp. Ref. [...] 13 RATIO N 6-26 Basophils # (Auto) February 13, 2014 3:35pm 0.0 T/MM3 N 0-0.2 Basophils (%) (Auto) February 13, 2014 3:35pm 0.3 % N 0-2 Blood Urea Nitrogen January 31, 2014 4:53am 16.0 MG/DL N 7-17 Calcium Level January 31, 2014 4:53am 9.3 MG/DL N 8.4-10.2 Calculated Osmolality January 31, 2014 4:53am 280 MOSM/KG N 261-280 Carbon Dioxide Level January 31, 2014 4:53am 26 MEQ/L N 22-30 Chloride Level January 31, 2014 4:53am 107 MEQ/L N 98-107 Cholesterol Level May 04, 2012 11:25am 138 MG/DL N 132-199 COMMENT WILL CALL WHEN ADMITTED Cholesterol/HDL Ratio May 04, 2012 11:25am 4.6 RATIO H 0-4.0 COMMENT WILL CALL WHEN ADMITTED Creatinine January 31, 2014 4:53am 1.2 MG/DL DN 0.7-1.2 Eosinophils # (Auto) February 13, 2014 3:35pm 0.3 T/MM3 N 0-0.5 Eosinophils # (Manual) January 27, 2014 4:52am 0.3 T/MM3 N 0-0.5 Eosinophils % (Manual) January 27, 2014 4:52am 3.0 % N 0-4 Eosinophils (%) (Auto) February 13, 2014 3:35pm 2.0 % N 0-4 Folate January 26, 2014 12:38pm > 20.0 NG/ML H 2.76-20 NORMAL ADULT RANGE: 2.76->20 ng/mL Globulin January 26, 2014 3:03pm 2.9 G/DL N 2.4-3.6 Glucose Level January 31, 2014 4:53am 198 MG/DL H 65-110 Hematocrit February 13, 2014 3:35pm 39.6 % N 36-46 Hemoglobin February 13, 2014 3:35pm 12.3 GM/DL N 12-16 Hemoglobin A1c January 26, 2014 12:38pm < 14.0 % H 6-7 <6.0 NON- DIABETIC RANGE6.0-7.0 ADA THERAPEUTIC RANGE >7.0 ACTION SUGGESTED LDL Cholesterol, Calculated May 04, 2012 11:25am 108 N 66-159 COMMENT WILL CALL WHEN ADMITTED Lipase January 26, 2014 12:38pm 292 U/L N 23-300 Lymphocytes # (Auto) February 13, 2014 3:35pm 1.8 T/MM3 N 1-4.8 Lymphocytes # (Manual) January 27, 2014 4:52am 2.7 T/MM3 N 1-4.8 Lymphocytes % (Manual) January 27, 2014 4:52am 26.0 % N 23-45 Lymphocytes (%) (Auto) February 13, 2014 3:35pm 13.7 % L 23-45 Magnesium Level January 26, 2014 12:38pm 1.7 MG/DL N 1.6-2.3 Mean Corpuscular Hemoglobin February 13, 2014 3:35pm 29.8 UUG N 26-34 Mean Corpuscular Hemoglobin Concent February 13, 2014 3:35pm 31.1 GM/DL N 31-37 Mean Corpuscular Volume February 13, 2014 3:35pm 95.9 UM3 N 80-100 Mean Platelet Volume February 13, 2014 3:35pm 8.9 UM3 L 9.4-12.4 Monocytes # (Auto) February 13, 2014 3:35pm 0.7 T/MM3 N 0-0.8 Monocytes # (Manual) January 27, 2014 4:52am 1.1 T/MM3 H 0-0.8 Monocytes % (Manual) January 27, 2014 4:52am 10.0 % H 0-9.0 Monocytes (%) (Auto) February 13, 2014 3:35pm 5.2 % N 0-9.0 Neutrophils # (Auto) February 13, 2014 3:35pm 10.3 T/MM3 H 1.8-7.7 Neutrophils # (Manual) January 27, 2014 4:52am 6.4 T/MM3 N 1.8-7.7 Neutrophils % (Manual) January 27, 2014 4:52am 61.0 % N 33-66 Neutrophils (%) (Auto) February 13, 2014 3:35pm 78.3 % H 33-66 Platelet Count February 13, 2014 3:35pm 249 T/MM3 N 130-400 Potassium Level January 31, 2014 4:53am 4.6 MEQ/L N 3.6-5 Prealbumin January 26, 2014 12:38pm 23.7 MG/DL N 17.6-36.0 Prothromb Time International Ratio January 25, 2013 12:40am 0.99 N 0.86-1.10 THERAPUTIC RANGE=2.00-3.00 FOR ANTI-THROMBOSIS THERAPUTIC RANGE=2.50 -3.50 FOR IMPLANTED VALVE RDW Standard Deviation February 13, 2014 3:35pm 46.9 FL N 36.9-50.2 Red Blood Count February 13, 2014 3:35pm 4.13 M/MM3 N 4.00-5.20 Sodium Level January 31, 2014 4:53am 142 MEQ/L N 134-144 Thyroid Stimulating Hormone (TSH) January 26, 2014 12:38pm 1.16 MIU/L N 0.47-4.68 Total Bilirubin January 26, 2014 3:03pm 0.60 MG/DL N 0.20-1.30 Total Protein January 26, 2014 3:03pm 6.2 G/DL L 6.3-8.2 Triglycerides Level May 04, 2012 11:25am 160 MG/DL H 35-135 COMMENT WILL CALL WHEN ADMITTED Urine Bacteria January 26, 2014 12:30pm 4+ [...] TO AMOUNT OF WBCS.DAP/LAB - Urine Specific [place] January 26, 2014 12:30pm 1.025 - Has [...] H 0-28 COMMENT WILL CALL WHEN ADMITTED Vitamin B12 Level January 26, 2014 12:38pm 954 PG/ML H 239-931 White Blood Count February 13, 2014 3:35pm 13.2 T/MM3 H 4.5-11.0 Chemistry Specimen Hemolysis January 31, 2014 4:53am [...] can falsely decrease Phenytoin. Recommend specimen recollection. Glucometer February 13, 2014 3:41pm 73 mg/dL N 65-110 Lab Scanned Report February 02, 2013 10:59am LAB RESULTS - SCANNED [id number] - HDL Cholesterol Direct May 04, 2012 11:25am 30 MG/DL L 40-60 COMMENT WILL CALL WHEN ADMITTED Turbidity January 31, 2014 4:53am < 20 0-20 Glomerular Filtration Rate Calc January 31, 2014 4:53am 46 - Immature Granulocyte # (Auto) February 13, 2014 3:35pm 0.06 T/MM3 H 0.00-0.03 Immature Granulocyte % (Auto) February 13, 2014 3:35pm 0.5 % N 0.0-0.5 Venous Blood Lactate January 26, 2014 12:38pm 3.7 MMOL/L H 0.6-2.2 Icterus Index January 31, 2014 4:53am < 2 0-7 Blood Culture Blood January 26, 2014 12:39pm NO GROWTH AFTER 5 DAYS Urine Culture Urine, Straight Cath January 26, 2014 1:05pm Amina Albicans Name: LILLY GREGORY Unit #: [id number] : 1950 Sex: F Loc / Svc: ED DOS: 02/13/14 Signed Report #: [id number] DIAGNOSTIC IMAGING REPORT TYPE OF EXAM: PELVIS AP (1 or 2 view) Dictated By: MEGHAN TORRES MD INDICATION: ITS.REASON: left hip pain PELVIS AP (1 or 2 view): Comparison: None Findings: There is no acute fracture, dislocation or malalignment identified. Mild joint space narrowing in both hips. Mild degenerative changes in the lower lumbar spine. Pubic symphysis is intact. Impression: No acute osseous abnormality. . Procedures No known history of procedures. Encounters Encounter Location Date/Time Departed Emergency Room [facility] 02/13/14 11:25am Discharged Inpatient [facility] 01/26/14 2:29pm Recent Diagnosis
--- OUTSIDE RECORDS SUMMARY | 2016-08-13 11:24 | XMS REPORT ---
Author Danika Salgado [employer] Address Unknown Phone Unavailable Care Team Providers Care Administrative Staff Supervisor Name Role Phone Danika Doll CP Unavailable Allergies, Adverse Reactions, Alerts Substance Reaction Event Type Aspirin bleeding Drug Allergy Problems Problem Type Condition Code Onset Dates Condition Status Problem Chronic obstructive pulmonary disease, unspecified J44.9 Active Problem Personal history of nicotine dependence Z87.891 Active Problem Opioid dependence, in remission F11.21 Active Problem Altered mental status, unspecified R41.82 Active Assessment Generalized edema R60.1 Active Problem Other hyperlipidemia E78.4 Active Problem Hypoglycemia, unspecified E16.2 Active Problem Dizziness and giddiness R42 Active Problem Gastro-esophageal reflux disease without esophagitis K21.9 Active Problem Hypothyroidism, unspecified E03.9 Active Problem Type 2 diabetes mellitus without complications E11.9 Active Assessment Chronic obstructive pulmonary disease, unspecified J44.9 Active Assessment Gastro-esophageal reflux disease without esophagitis K21.9 Active Assessment Other hyperlipidemia E78.4 Active Assessment Chronic kidney disease, stage 3 (moderate) N18.3 Active Assessment Generalized anxiety disorder F41.1 Active Problem Generalized anxiety disorder F41.1 Active Assessment Type 2 diabetes mellitus without complications E11.9 Active Problem Panic disorder [episodic paroxysmal anxiety] without agoraphobia F41.0 Active Assessment Hypothyroidism, unspecified E03.9 Active Problem Chronic kidney disease, stage 3 (moderate) N18.3 Active Medications Medication Code System Code Instructions Start Date End Date Status Dosage Lisinopril [facility] 01244767022 20 Orally Once a day 1 tablet Furosemide [facility] [address]-56 40 MG Orally Twice a day at 8am and 3 pm May 29, 2015 1 tablet Gabapentin [facility] 45688804991 300 Orally BID take one capsule by mouth twice a day Proventil HFA [facility] 17917316507 90 INHALE TWO PUFFS BY MOUTH EVERY 4 HOURS NEEDED Plavix [facility] 63633112605 75 TAKE ONE TABLET BY MOUTH DAILY Potassium Chloride ER [facility] [address]-76 10 MEQ Orally Twice a day 1 capsule [employer] Test [facility] 0 none In Vitro. 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 Must last 30 days every 6 hours 1 tablet as needed Levothyroxine Sodium [facility] [address]-83 25 MCG Orally Once a day TAKE ONE TABLET BY MOUTH EVERY MORNING ON AN EMPTY STOMACH Novolin 70/30 [facility] [address]-85 (70-30) 100 UNIT/ML Subcutaneous twice a day 66 units am, 70/72 evenint Simvastatin [facility] [address]-36 40 MG Orally Once a day Jan 23, 2015 1 tablet in the evening Alprazolam [facility] [address]-30 0.5 MG Orally Three times a day Mar 13, 2015 1 tablet Procedures Procedure Coding System Code Date OFFICE VISIT, EST-MOD. COMPLEXITY (25 MIN) CPT-4 84509 Apr 03, 2016 Vital Signs Date/Time: Apr 03, 2016 Temperature 97.8 F Height 61.5 in Weight 309.4 lbs Blood Pressure Diastolic 60 mm Hg Blood Pressure Systolic 120 mm Hg Cardiac Monitoring Heart Rate 75 /min BMI 57.51 Index Oximetry 93 % Respiratory Rate 20 /min Results No Known Results Summary Purpose eClinicalWorks Submission
--- OUTSIDE RECORDS SUMMARY | 2016-08-13 11:26 | XMS REPORT | Referral Summary ---
Author Author [facility] Organization [facility] Address Unknown Phone Unavailable Care Team Providers Care Crematory Attendant Name Role Phone Naveed Obrien Primary Care Physician [phone] Encounter [facility] [phone] Date(s): 06/04/16 - 06/04/16 [facility] [address] [place], [place] [address] Discharge Diagnosis: History of COPD Discharge Diagnosis: Chronic respiratory failure Discharge Diagnosis: Morbid obesity Discharge Disposition: 01-Home or Self Care Attending Physician: Arnie Saha MD Admitting Physician: Arnie Saha MD Vital Signs Most recent to 1 oldest [Reference Range]: Peripheral Pulse 67 bpm Rate [60-100 bpm] (06/04/16 9:33 AM) Respiratory Rate 20 br/min [14-20 br/min] (06/04/16 9:33 AM) Blood Pressure 158/64 mmHg [90-140/60-90 mmHg] *HI* (06/04/16 9:33 AM) SpO2 95 % (06/04/16 9:33 AM) Problem List Condition Effective Dates Status Health Status Informant Acute Active pain(Confirmed) Alteration in Active nutrition(Confirmed) 1 At risk for Active falls(Confirmed)2 At risk for Active injury(Confirmed)3 At risk of pressure Active sore(Confirmed) Impaired skin Active integrity(Confirmed) 4 Ineffective airway Active clearance(Confirmed) 5 Morbid Active patient obesity(Confirmed) 1Problem added automatically by system based on [...] buPROPion Active heparin containing Active compounds1 1devloped HIT - 04/2016 Medications albuterol 5 mg/mL (0.5%) inhalation solution 2.5 mg 0.5 mL, NEB, TID, 0 Refill(s) Start Date: 05/15/16 Status: Ordered amiodarone 200 mg oral tablet 400 mg 2 tabs, Oral, Daily, 0 Refill(s) Start Date: 05/15/16 Status: Ordered Brovana 15 mcg/2 mL inhalation solution 1 Each, NEB, BID, DX: R06.02 PRITI: 99, # 60 Each, 3 Refill(s) Start Date: 06/04/16 Status: Ordered clopidogrel 75 mg, Oral, Daily, 0 Refill(s) Start Date: 04/26/16 Status: Ordered Coumadin 5 mg oral tablet 5 mg 1 tabs, Oral, Daily, 0 Refill(s) Start Date: 05/15/16 Status: Ordered docusate sodium 10 mg/mL oral liquid 100 mg 10 mL, Oral, BID, 0 Refill(s) Start Date: 05/15/16 Status: Ordered fondaparinux 10 mg/0.8 mL subcutaneous solution 10 mg 0.8 mL, SubCutaneous, q24hr, 0 Refill(s) Start Date: 05/15/16 Status: Ordered hydrALAZINE 50 mg oral tablet 50 mg 1 tabs, Oral, QID, 0 Refill(s) Start Date: 05/15/16 Status: Ordered Levemir 100 units/mL subcutaneous solution 15 units, SubCutaneous, Bedtime (once a day), 0 Refill(s) Start Date: 05/15/16 Status: Ordered levothyroxine 25 mcg, Oral, Daily, 0 Refill(s) Start Date: 04/26/16 Status: Ordered miconazole 2% topical powder 1 stefany, Topical, BID, 0 Refill(s) Start Date: 05/15/16 Status: Ordered MiraLax 17 g 1 packets, Oral, Daily, Constipation, 0 Refill(s) Start Date: 05/15/16 Status: Ordered Norvasc 5 mg oral tablet 5 mg 1 tabs, Oral, BID, 0 Refill(s) Start Date: 05/15/16 Status: Ordered pantoprazole 40 mg, Oral, Daily, [...] per day: 1 Pack Assessment and Plan Extracted from: Title: Office Visit Note Author: Arnie Saha Date: 06/04/16 Julee ZUÑIGA Assessment/Plan Pleasant 65-year-old lady here for hospital follow-up 1.History of COPD Patient hashistory of COPD by history. Unclear if she had pulmonary function testing in the past She does havesmoking history. She did quitsince she left the hospital. Patient does have evidence ofhypercapnicrespiratory acidosis suggestive of potentialobstructive airway disease versus understanding ventilation syndrome. At this point given that patient has potentially COPD would like to add a long-actingbeta agonistrather than just leaving her on monotherapy with inhaled corticosteroid. We'll also obtain a full pulmonary function testing next visit. 2.Morbid obesity Continue efforts to lose weight 3.Chronic respiratory failure Chronic hypoxic hypercapnic respiratory failure Compliant with oxygen currently she is on 4 L of oxygen 3 months follow-up
--- OUTSIDE RECORDS SUMMARY | 2016-08-13 11:26 | XMS REPORT ---
Author [facility] Address [address], [place] [id number] Care Team Providers Care Swatch Paster Name Role Phone Danika Doll Unavailable [phone] PROBLEMS Type Condition ICD9-CM Code [id number] Code Onset Dates Condition Status SNOMED Code Problem Gastro-esophageal reflux disease without esophagitis K21.9 Active 231792290 Problem Type 2 diabetes mellitus without complications E11.9 Active 801840224 Problem Dizziness and giddiness R42 Active 151304774 Problem Venous insufficiency of both lower extremities I87.2 Active 298408581 Problem Essential (primary) hypertension I10 Active 17493390 Problem Other hyperlipidemia E78.4 Active 72036197 Problem Hypothyroidism, unspecified E03.9 Active 99017951 Problem Hypoglycemia, unspecified E16.2 Active 298615265 Problem Altered mental status, unspecified R41.82 Active 479909470 Problem Chronic kidney disease, stage 3 (moderate) N18.3 Active 156578204 Problem Chronic obstructive pulmonary disease, unspecified J44.9 Active 98187695 Problem Generalized anxiety disorder F41.1 Active 75888249 Problem Opioid dependence, in remission F11.21 Active 966180362 Problem Panic disorder [episodic paroxysmal anxiety] without agoraphobia F41.0 Active 79275660 Problem Personal history of nicotine dependence Z87.891 Active 18522474 ALLERGIES Unknown Allergies SOCIAL HISTORY No smoking Hx information available PLAN OF CARE VITAL SIGNS MEDICATIONS Unknown Medications RESULTS No Results PROCEDURES No Known procedures IMMUNIZATIONS No Known Immunizations
--- OUTSIDE RECORDS SUMMARY | 2016-08-13 11:27 | XMS REPORT | Continuity of Care Document ---
Author Author MARCIA [facility] Organization [facility] Address Unknown Phone Unavailable Support Name Relationship Address Phone TEDDY NIX MD Caregiver [address] [place] [address] [place] [address] Unavailable TEDDY NIX MD Caregiver [address] [place] [address] [place] [id number] Unavailable DANIKA CORNELIUS SKI TOPPER Caregiver [address] [place] [address] Unavailable SEPTEMBERCLIFF DO Caregiver [address] [place] [id number] Unavailable CHARLES BURNS Next Of Kin Unknown [phone] Insurance Providers Guarantor Lilly Gregory Address [address] [place] [address] Email 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 Unknown Chronic Bilateral knee pain Unknown Acute CAD (coronary artery disease) Unknown Chronic COPD (chronic obstructive pulmonary disease) Unknown Chronic Chronic kidney disease, stage III (moderate) Unknown Chronic Cough Unknown Acute Dehydration Unknown Acute Depression with anxiety Unknown Chronic Diabetes mellitus Unknown Chronic Diabetes mellitus type 2 with hyperosmolarity, uncontrolled Unknown Acute Encephalopathy acute Unknown Resolved GERD (gastroesophageal reflux disease) Unknown Chronic HTN (hypertension) Unknown Chronic Hyperglycemia Unknown Acute Hyperlipidemia associated with type 2 diabetes mellitus Unknown Chronic Hypernatremia Unknown Acute Hypokalemia Unknown Resolved Hyponatremia Unknown Resolved Hypothyroidism Unknown Chronic Left hip pain Unknown Acute Morbid obesity with BMI of 40.0-44.9, adult Unknown Acute Morbid obesity with BMI of 45.0-49.9, adult Unknown Morbid obesity with BMI of 50.0-59.9, adult Unknown Chronic OA (osteoarthritis) Unknown Chronic Open thigh wound Unknown Acute PVD (peripheral vascular disease) Unknown Chronic Pneumonia Unknown Acute Renal insufficiency Unknown Chronic Severe sepsis Unknown Resolved Suspected DVT (deep vein thrombosis) Unknown Acute Tinea corporis Unknown Acute Tobacco dependency Unknown Chronic Type II diabetes mellitus, uncontrolled Unknown Chronic UTI (urinary tract infection) Unknown Acute lumbar strain/spasms Unknown Acute Past Problems Medical Problem Onset Date Acute renal injury Unknown Acute respiratory failure with hypoxia and hypercapnia Unknown Amina infection of genital region Unknown Chronic wound of extremity Unknown Hyperkalemia Unknown Hypoglycemia Unknown Hypoglycemia Unknown Hypoglycemia due to insulin Unknown Leukocytosis Unknown Right lower lobe pneumonia Unknown Urinary tract infection Unknown Medications Current Home Medications Medication Dose Units Route Directions Days Qty Instructions Start Date Budesonide (Pulmicort Flexhaler 180) 120 Puff/Inhaler Inha 1 Puff Oral Inhalation Twice A Day 1 Inhaler 12/25/15 Clopidogrel Bisulfate (Clopidogrel) 75 Mg Tablet 75 Mg Oral Daily 04/04/15 Levothyroxine Sodium (Levothroid) 25 Mcg Tablet 25 Mcg Oral Before Breakfast 05/03/12 Nystatin 50,000,000 Unit Powder.ea. 1 Applic Topically Three Times A Day 30 Days 5 Tube 04/26/16 Pantoprazole Sodium 40 Mg Tablet.dr 40 Mg Oral Before Breakfast 01/26/14 Past Home Medications Medication Directions Ordered Status Acetaminophen 500 Mg Tablet, 1000 Mg Oral as needed 05/03/12 Discontinued Albuterol Sulfate (Proventil Hfa 90 Mcg/Actuation) 200 Puff/6.7 G Inha, 2 Puff Inhalation Every 4 Hours as needed for Prn Orders 01/26/14 Discontinued Alprazolam 0.5 Mg Tablet, 0.5 Mg Oral Three Times A Day 05/15/15 Discontinued Alprazolam 1 Mg Tablet, 1 Mg Oral Daily 05/03/12 Discontinued Alprazolam (Xanax) 2 Mg Tablet, 2 Mg Oral Three Times A Day 05/03/12 Discontinued Furosemide 40 Mg Tablet, 40 Mg Oral Twice A Day 09/25/15 Discontinued Gabapentin 300 Mg Capsule, 300 Mg Oral Three Times A Day 05/04/12 Discontinued Hum Insulin Nph/Reg Insulin Hm (Novolin 70-30 100 Unit/Ml Vial) 100 Unit/Ml Inj , 66 Unit Sub-Q Give With Breakfast 05/15/15 Discontinued Hum Insulin Nph/Reg Insulin Hm (Novolin 70-30 100 Unit/Ml Vial) 100 Unit/Ml Inj , 70 Unit Sub-Q Give With Supper 05/15/15 Discontinued Hum Insulin Nph/Reg Insulin Hm (Novolin 70-30 100 Unit/Ml Vial) 100 Unit/Ml Inj , 57 Unit Sub-Q Daily Morning Insulin 04/04/15 Discontinued Hum Insulin Nph/Reg Insulin Hm (Novolin 70-30 100 Unit/Ml Vial) 100 Unit/Ml Inj , 54 Unit Sub-Q Daily After Noon Insulin 04/04/15 Discontinued Hydrochlorothiazide 25 Mg Tablet, 25 Mg Oral Daily 05/03/12 Discontinued Lisinopril 20 Mg Tablet, 20 Mg Oral Daily 04/04/15 Discontinued Lisinopril 20 Mg Tablet, 20 Mg Oral Daily 05/03/12 Discontinued Meclizine Hcl 25 Mg Tablet, 25 Mg Oral Three Times A Day 05/04/12 Discontinued Meclizine Hcl 25 Mg Tablet, 25 Mg Oral Twice A Day 05/03/12 Discontinued Metformin Hcl 500 Mg Tablet, 500 Mg Oral Twice A Day 05/03/12 Discontinued Multivit With Calcium,Iron,Min (Women's One Daily) 1 Each Tablet, 1 Tab Oral Daily 01/26/14 Discontinued Nitroglycerin 0.4 Mg Tab.subl, 0.4 Mg Oral Every 5 Minutes X 3 as needed for Chest Pain 04/25/16 Discontinued Potassium Chloride (Klor-Con M20) 20 Meq Tablet, 20 Meq Oral Daily 05/15/15 Discontinued Potassium Chloride (Klor-Con M20) 20 Meq Tablet, 1 Tab Oral Daily 04/04/15 Discontinued Simvastatin 40 Mg Tablet, 40 Mg Oral Daily 04/04/15 Discontinued Sitagliptin Phosphate (Januvia) 50 Mg Tablet, 50 Mg Oral Daily 01/26/14 Discontinued Sulfamethoxazole/Trimethoprim (Bactrim Ds Tablet) 1 Each Tablet, 1 Tab Oral Twice A Day 04/25/16 Discontinued Sulfamethoxazole/Trimethoprim (Bactrim Ds Tablet) 1 Each Tablet, 1 Tab Oral Twice A Day 04/04/15 Discontinued Social History Social History Problem Response Recorded Date/Time Onset Date Status Reason for Hospitalization Acute renal failure and hyperkalemia 04/26/2016 5: 12pm Not Applicable Not Applicable Chewing Tobacco Status No 01/25/2013 12:26am Not Applicable Not Applicable Hx Substance Use No 04/25/2016 2:11pm Not Applicable Not Applicable Hx Alcohol Use No 04/25/2016 2:11pm Not Applicable Not Applicable Has the pt used tobacco in the last 12 months Yes 04/03/2016 5:29pm Not Applicable Not Applicable Tobacco Usage smoke 04/04/2015 5:44pm Not Applicable Not Applicable Query Response Start Date Stop Date Smoking Status Current every day smoker Hospital Discharge Instructions Instructions: Care Instructions: Reason for Hospitalization: Acute renal failure and hyperkalemia I was in the hospital because (patient own words): unresponsive Discharge Diet: NPO due to AMS Discharge Activity: N/A Follow Up Appointments: N/A Pending Lab / Results: No Pending Lab Patient Instructions: N/A Wound/Incision Care: will need wound care at other facility Durable Medical Equipment: BiPAP Pain Management/Treatment: N/A Expected Signs/Symptoms: N/A Notify Physician If: N/A During Business Hours:: N/A Please call the physician's office at After Business Hours:: N/A Please call [phone] and have the bandage winding machine operator page the physician. Condition at time of discharge: Critical Plan of Care Discharge Date 04/26/16 5:20pm Disposition 02 TO [facility] Instructions/Education Provided DI for Hyperkalemia Prescriptions See Medication Section Care Plan and Goals See Discharge Instructions Section Functional Status Query Response Date Recorded Mobility Status Ambulatory w/assist April 26, 2016 5:12pm Assistive Devices Wheelchair April 26, 2016 5:12pm Activity Limitations Weakness April 26, 2016 5:12pm Feeding Ability Assist April 26, 2016 5:12pm Toileting Ability Dependent April 26, 2016 5:12pm Grooming Ability Dependent April 26, 2016 5:12pm Dressing Ability Dependent April 26, 2016 5:12pm Driving Ability Dependent April 26, 2016 5:12pm Housework Ability Dependent April 26, 2016 5:12pm Meal Preparation Ability Dependent April 26, 2016 5:12pm Stair Climbing Ability Dependent April 26, 2016 5:12pm Ability to complete ADL's impeded by Change in Behavior Impaired Mobility Change in Cognition April 26, 2016 5:12pm Cognitive/Perceptual Impairments Impaired vision April 26, 2016 5:12pm Visual Assistive Devices Glasses April 25, 2016 3:52pm Allergies, Adverse Reactions, Alerts Allergen Type Severity Reaction Status Last Updated Aspirin Allergy Unknown Active 04/03/16 Bupropion Allergy Unknown Active 04/03/16 Immunizations Query Response on File Recorded Date/Time Hx Influenza Vaccination Y UNKNOWN 04/03/16 5:29pm Hx Pneumococcal Vaccination No 04/03/16 5:29pm Hx Influenza Vaccination Y UNKNOWN 04/03/16 5:29pm Influenza Vaccine Hx 03/201604/25/16 2:11pm Vital Signs Acute Vital Signs Vital Response Date/Time Temperature (Fahrenheit) 99.5 deg F (96.8 - 99.1) 04/26/2016 3:31pm Temperature (Calculated Celsius) 37.59748 degrees C (36.0 - 37.3) 04/26/2016 3:31pm Pulse Rate (adult) 95 bpm (60 - 100) 04/26/2016 4:34pm Respiratory Rate 19 breaths/min (10 - 20) 04/26/2016 4:34pm O2 Sat by Pulse Oximetry 95 % (90 - 100) 04/26/2016 4:35pm Oxygen Delivery Method Nasal Cannula 04/03/2016 5:55pm Oxygen Delivery Method Bi-pap 04/26/2016 4:15pm Oxygen Flow Rate 3.00 L/min 04/25/2016 4:02pm Fraction of Inspired Oxygen (FIO2) 45 % 04/26/2016 4:35pm Blood Pressure 176/82 mm Hg 04/26/2016 4:34pm Blood Pressure Source Automatic Cuff 04/26/2016 4:34pm Height (Feet) 5 feet 04/26/2016 11:57am Height (Inches) 2.00 inches 04/26/2016 11:57am Weight (Kilograms) 150.800 kg 04/26/2016 8:32am Body Mass Index (BMI) 58.9 04/25/2016 3:00pm Results Laboratory Results Test Name Result Units Flags Reference Collection Date/Time Result Date/ Time Comments Urine WBC Clumps FEW 04/03/2016 2:31pm 04/03/2016 3:09pm White Blood Count 10.0 T/MM3 4.5-11.0 04/26/2016 7:01am 04/26/2016 7: 19am Red Blood Count 4.01 M/MM3 4.00-5.20 04/26/2016 7:01am 04/26/2016 7: 19am Hemoglobin 12.1 GM/DL 12-16 04/26/2016 7:01am 04/26/2016 7:19am Hematocrit 40.7 % 36-46 04/26/2016 7:04/26/2016 7:19am Mean Corpuscular Volume 101.5 UM3 H 80-100 04/26/2016 7:04/26/2016 7:19am Mean Corpuscular Hemoglobin 30.2 UUG 26-34 04/26/2016 7:2015 7:19am Mean Corpuscular Hemoglobin Concent 29.7 GM/DL L 31-37 04/26/2016 7:04/26/2016 7:19am RDW Standard Deviation 59.8 FL H 36.9-50.2 04/26/2016 7:04/26/2016 7:19am Platelet Count 232 T/MM3 130-400 04/26/2016 7:04/26/2016 7:19am Mean Platelet Volume 9.4 UM3 9.4-12.4 04/26/2016 7:04/26/2016 7: 19am Neutrophils (%) (Auto) 59.5 % 33-66 04/25/2016 1:1004/25/2016 1: 18pm Lymphocytes (%) (Auto) 26.1 % 23-45 04/25/2016 1:1004/25/2016 1: 18pm Monocytes (%) (Auto) 7.0 % 0-9.0 04/25/2016 1:1004/25/2016 1:18pm Eosinophils (%) (Auto) 7.0 % H 0-4 04/25/2016 1:10pm 04/25/2016 1:18pm Basophils (%) (Auto) 0.3 % 0-2 04/25/2016 1:1004/25/2016 1:18pm Immature Granulocyte % (Auto) 0.1 % 0.0-0.5 04/25/2016 1:10pm 2015 1:18pm Absolute Neutrophils (auto) 5.3 T/MM3 1.8-7.7 04/25/2016 1:10pm 2015 1:18pm Absolute Lymphocytes (auto) 2.3 T/MM3 1-4.8 04/25/2016 1:10pm 2015 1:18pm Absolute Monocytes (auto) 0.6 T/MM3 0-0.8 04/25/2016 1:10pm 04/25/2016 1:18pm Absolute Eosinophils (auto) 0.6 T/MM3 H 0-0.5 04/25/2016 1:10pm 2015 1:18pm Absolute Basophils (auto) 0.0 T/MM3 0-0.2 04/25/2016 1:10pm 04/25/2016 1:18pm Absolute Immature Granulocyte (auto 0.01 T/MM3 0.00-0.03 04/25/2016 1: 10pm 04/25/2016 1:18pm Neutrophils % (Manual) 69.0 % H 33-66 04/26/2016 7:01am 04/26/2016 8: 00am Lymphocytes % (Manual) 24.0 % 23-45 04/26/2016 7:01am 04/26/2016 8: 00am Monocytes % (Manual) 6.0 % 0-9.0 04/26/2016 7:01am 04/26/2016 8:00am Eosinophils % (Manual) 1.0 % 0-4 04/26/2016 7:01am 04/26/2016 8:00am Absolute Neutrophils (Manual) 6.9 T/MM3 1.8-7.7 04/26/2016 7:01am 04/26 8:00am Lymphocytes # (Manual) 2.4 T/MM3 1-4.8 04/26/2016 7:01am 04/26/2016 8: 00am Monocytes # (Manual) 0.6 T/MM3 0-0.8 04/26/2016 7:01am 04/26/2016 8: 00am Eosinophils # (Manual) 0.1 T/MM3 0-0.5 04/26/2016 7:01am 04/26/2016 8: 00am Red Cell Morphology Comment ABNORMAL 04/26/2016 7:01am 04/26/2016 8 :00am Anisocytosis 1+ 04/26/2016 7:01am 04/26/2016 8:00am Icterus Index < 2 0-7 04/26/2016 12:11pm 04/26/2016 12:28pm Chemistry Specimen Hemolysis 76 H 0-25 04/26/2016 3:28pm 04/26/2016 3: 49pm 71-285: Specimen Exhibited Moderate Hemolysis - can falsely elevate K (Potassium), Troponin I, CA 19-9, PTH, CSF Glucose, Urine Protein, and can falsely decrease Phenytoin. Turbidity < 20 0-20 04/26/2016 12:11pm 04/26/2016 12:28pm Sodium Level 146 MEQ/L H 134-144 04/26/2016 12:11pm 04/26/2016 12:28pm Potassium Level 7.4 MEQ/L *H 3.6-5 04/26/2016 3:28pm 04/26/2016 3:56pm Chloride Level 106 MEQ/L 98-107 04/26/2016 12:11pm 04/26/2016 12:28pm Carbon Dioxide Level 29 MEQ/L 22-30 04/26/2016 12:11pm 04/26/2016 12: 28pm Anion Gap 11 MEQ/L 5-15 04/26/2016 12:11pm 04/26/2016 12:28pm Blood Urea Nitrogen 53.0 MG/DL *H 7-17 04/26/2016 12:11pm 04/26/2016 12: 34pm Creatinine 3.3 MG/DL H 0.7-1.2 04/26/2016 12:11pm 04/26/2016 12:28pm BUN/Creatinine Ratio 16 RATIO 6-26 04/26/2016 12:11pm 04/26/2016 12: 28pm Glomerular Filtration Rate Calc 14 04/26/2016 12:11pm 04/26/2016 12 :28pm Glucose Level 120 MG/DL H 65-110 04/26/2016 12:11pm 04/26/2016 12:28pm Calculated Osmolality 296 MOSM/KG H 261-280 04/26/2016 12:11pm 2015 12:28pm Calcium Level 9.1 MG/DL 8.4-10.2 04/26/2016 12:11pm 04/26/2016 12:28pm Total Bilirubin 0.50 MG/DL 0.20-1.30 04/26/2016 3:18am 04/26/2016 3: 49am Alkaline Phosphatase 71 U/L 38-126 04/26/2016 3:18am 04/26/2016 3:49am Total Protein 6.7 G/DL 6.3-8.2 04/26/2016 3:18am 04/26/2016 3:49am Albumin 3.4 G/DL L 3.5-5.0 04/26/2016 3:18am 04/26/2016 3:49am Globulin 3.3 G/DL 2.4-3.6 04/26/2016 3:18am 04/26/2016 3:49am Albumin/Globulin Ratio 1.0 RATIO L 1.1-2.2 04/26/2016 3:18am 04/26/2016 3:49am Aspartate Amino Transf (AST/SGOT) 28 U/L 14-36 04/26/2016 3:18am 2015 3:49am Alanine Aminotransferase (ALT/SGPT) 22 U/L 9-52 04/26/2016 3:18am 04/26 3:49am Troponin I < 0.012 ng/ml 0-0.12 04/25/2016 1:02pm 04/25/2016 1:55pm Troponin values with a difference of 55% increase from orginal troponin value represent a true biological DELTA value. (%increase Calc=Orginal Troponin value, divided by subsequent Troponin value, multiplied by 100) QQ-Acf-P-Type Natriuretic Peptide 159 PG/ML 0-175 04/25/2016 1:02pm 01/2016 2:02pm Rule in cut points: <50 years old=450; 50-75 years old=900; >75 years old=1800; When utilizing ProBNP rule-in cut points, adjustment for impaired renal function is typically not required. Plasma Lactate 0.7 MMOL/L 0.6-2.2 04/26/2016 7:01am 04/26/2016 7:26am Procalcitonin 0.05 NG/ML 04/25/2016 1:10pm 04/25/2016 1:41pm PCT </= 0.5 ng/mL - sepsis not likely; PCT >0.5 and </=2 ng/mL - sepsis possible; PCT >2 ng/mL - sepsis likely; PCT >/=10 ng/mL - systemic inflammatory response - sepsis or septic shock highly indicated. Arterial Blood pH 7.180 *L 7.350-7.450 04/26/2016 1:46am 04/26/2016 1: 49am Arterial Blood Partial Pressure CO2 85 MMHG *H 34-45 04/26/2016 1:46am 1:49am Arterial Blood pO2 at Patient Temp 75 MMHG L 80-100 04/26/2016 1:46am 1:49am Arterial Blood HCO3 32 MEQ/L H 22-26 04/26/2016 1:46am 04/26/2016 1: 49am Arterial Blood Total CO2 34.3 MEQ/L H 23-27 04/26/2016 1:46am 2015 1:49am Arterial Blood Base Excess 1.1 MMOL/L -2.0-2.0 04/26/2016 1:46am 2015 1:49am Arterial Blood Oxygen Saturation 91.0 % L 95.0-98.0 04/26/2016 1:46am 1:49am Blood Gas Oxygen Percent Given 40 04/26/2016 1:46am 04/26/2016 1: 49am Oxygen Delivery Method (LAB) ROOM AIR 04/26/2016 7:0104/26/2016 7:21am Venous Blood pH 7.230 L 7.31-7.41 04/26/2016 7:0104/26/2016 7:20am Venous Blood Partial Pressure CO2 73 MMHG H 40-52 04/26/2016 7:0102/2016 7:20am Venous Blood Partial Pressure O2 75 MMHG H 40-52 04/26/2016 7:0104/26 7:20am Venous Blood HCO3 31 MEQ/L H 22-26 04/26/2016 7:0104/26/2016 7:20am Venous Blood Total Carbon Dioxide 32.8 MEQ/L 04/26/2016 7:012015 7:20am Venous Blood Base Excess 1.2 MMOL/L -2.0-2.0 04/26/2016 7:012015 7:20am Venous Blood Oxygen Saturation 92.0 % 04/26/2016 7:0104/26/2016 7: 20am Blood Gas Oxygen Percent Given 40 04/26/2016 3:18am 04/26/2016 3: 38am Urine Collection Type CERDA INDWELLING 04/26/2016 3:01pm 2015 3:22pm Urine Color YELLOW YELLOW 04/26/2016 3:01pm 04/26/2016 3:22pm Urine Turbidity CLEAR CLEAR 04/26/2016 3:01pm 04/26/2016 3:22pm Urine Specific Webber 1.025 1.015-1.025 04/26/2016 3:01pm 2015 3:22pm Urine pH 5.5 5.0-8.0 04/26/2016 3:01pm 04/26/2016 3:22pm Urine Leukocyte Esterase NEGATIVE NEGATIVE 04/26/2016 3:01pm 2015 3:22pm Urine Nitrite NEGATIVE NEGATIVE 04/26/2016 3:01pm 04/26/2016 3:22pm Urine Protein TRACE A NEGATIVE 04/26/2016 3:01pm 04/26/2016 3:22pm Urine Glucose (UA) NEGATIVE NEGATIVE 04/26/2016 3:01pm 04/26/2016 3: 22pm Urine Ketones NEGATIVE NEGATIVE 04/26/2016 3:01pm 04/26/2016 3:22pm Urine Urobilinogen 0.2 EU/DL NORMAL 04/26/2016 3:01pm 04/26/2016 3: 22pm Urine Bilirubin NEGATIVE NEGATIVE 04/26/2016 3:01pm 04/26/2016 3: 22pm Urine Blood 2+ A NEGATIVE 04/26/2016 3:01pm 04/26/2016 3:22pm Urine WBC 0-1 /HPF 0-5 04/26/2016 3:01pm 04/26/2016 3:47pm Urine RBC 3-5 /HPF H 0-3 04/26/2016 3:01pm 04/26/2016 3:47pm Urine Squamous Epithelial Cells 0-5 04/26/2016 3:01pm 04/26/2016 3: 47pm Urine Bacteria NONE SEEN NEGATIVE 04/26/2016 3:01pm 04/26/2016 3: 47pm Urine Mucus PRESENT 04/26/2016 3:01pm 04/26/2016 3:47pm Urine Hyaline Casts 0-1 /LPF 04/26/2016 3:01pm 04/26/2016 3:47pm Urine Culture Indicated CULT NOT INDICATED 04/26/2016 3:01pm 2015 3:47pm Urinalysis Comment MICROSCOPIC NOT IND. 04/25/2016 12:47pm 2015 12:57pm Glucometer 84 mg/dL 65-110 04/26/2016 6:38am 04/26/2016 6:40am Microbiology Results Procedure Source Organism/Result Collection Date/Time Result Date/Time Result Status Urine Culture Urine, Clean Catch-Midstream KLEBSIELLA PNEUMO SSP PNEUMO 3:09pm 04/05/2016 6:22am Final Blood Culture Peripheral/Iv Start NO GROWTH AFTER 24 HOURS 04/25/2016 1: 10pm 04/26/2016 1:12pm Preliminary WOUND CULTURE DEEP TISS-AER/AN Thigh, Left CULTURE INITIATED - RESULTS PENDING 04/25/2016 12:47pm 04/25/2016 12:54pm Preliminary Name: LILLY GREGORY Unit #: [id number] : 1950 Sex: F DISCHARGE SUMMARY Admit Date: 04/26/16 Report #: [id number] [facility] General Date Date DATE: 04/26/16 TIME: 16:47 Attending Physician Teddy Nix MD Admitting Physician Teddy Nix MD Consulting Physician Nikita Segovia MD Admitting Diagnosis hypoglycemia, hyperkalemia, acute renal injury, chronic wound Discharge Diagnosis Hyperkalemia, Acute on chronic renal failure. Chronic wound/cellulitis, hypoglycemia, DM Procedures None Laboratory Laboratory Tests Test 04/25/16 12:47 04/25/16 13:02 04/25/16 13:10 04/25/16 13:13 Urine Collection Type Straight cath Urine Color Yellow (YELLOW) Urine Turbidity Clear (CLEAR) Urine pH 5.5 (5.0-8.0) Urine Specific Webber 1.020 (1.015-1.025) Urine Protein Negative (NEGATIVE) Urine Glucose (UA) Negative (NEGATIVE) Urine Ketones Negative (NEGATIVE) Urine Blood Negative (NEGATIVE) Urine Nitrite Negative (NEGATIVE) Urine Bilirubin Negative (NEGATIVE) Urine Urobilinogen 0.2EU/DL (NORMAL) Urine Leukocyte Esterase Negative (NEGATIVE) Urinalysis Comment Microscopic not ind. Troponin I < 0.012ng/ml (0-0.12) NX-Ktw-T-Type Natriuretic Peptide 159PG/ML (0-175) Chemistry Specimen Hemolysis 18 (0-25) 17 (0-25) White Blood Count 8.9T/MM3 (4.5-11.0) Red Blood Count 4.21M/MM3 (4.00-5.20) Hemoglobin 12.5GM/DL (12-16) Hematocrit 41.5% (36-46) Mean Corpuscular Volume 98.6UM3 (80-100) Mean Corpuscular Hemoglobin 29.7UUG (26-34) Mean Corpuscular Hemoglobin Concent 30.1GM/DL (31-37) RDW Standard Deviation 57.3FL (36.9-50.2) Platelet Count 245T/MM3 (130-400) Mean Platelet Volume 9.5UM3 (9.4-12.4) Immature Granulocyte % (Auto) 0.1% (0.0-0.5) Neutrophils (%) (Auto) 59.5% (33-66) Lymphocytes (%) (Auto) 26.1% (23-45) Monocytes (%) (Auto) 7.0% (0-9.0) Eosinophils (%) (Auto) 7.0% (0-4) Basophils (%) (Auto) 0.3% (0-2) Absolute Immature Granulocyte (auto 0.01T/MM3 (0.00-0.03) Absolute Neutrophils (auto) 5.3T/MM3 (1.8-7.7) Absolute Lymphocytes (auto) 2.3T/MM3 (1-4.8) Absolute Monocytes (auto) 0.6T/MM3 (0-0.8) Absolute Eosinophils (auto) 0.6T/MM3 (0-0.5) Absolute Basophils (auto) 0.0T/MM3 (0-0.2) Turbidity < 20 (0-20) Sodium Level 147MEQ/L (134-144) Potassium Level 6.1MEQ/L (3.6-5) Chloride Level 103MEQ/L (98-107) Carbon Dioxide Level 33MEQ/L (22-30) Anion Gap 11MEQ/L (5-15) Blood Urea Nitrogen 50.0MG/DL (7-17) Creatinine 2.9MG/DL (0.7-1.2) Glomerular Filtration Rate Calc 16 BUN/Creatinine Ratio 17RATIO (6-26) Glucose Level 41MG/DL (65-110) Calculated Osmolality 292MOSM/KG (261-280) Calcium Level 9.0MG/DL (8.4-10.2) Total Bilirubin 0.40MG/DL (0.20-1.30) Icterus Index < 2 (0-7) Aspartate Amino Transf (AST/SGOT) 20U/L (14-36) Alanine Aminotransferase (ALT/SGPT) 26U/L (9-52) Alkaline Phosphatase 78U/L (38-126) Total Protein 7.2G/DL (6.3-8.2) Albumin 3.7G/DL (3.5-5.0) Globulin 3.5G/DL (2.4-3.6) Albumin/Globulin Ratio 1.1RATIO (1.1-2.2) Plasma Lactate 0.9MMOL/L (0.6-2.2) Procalcitonin 0.05NG/ML Glucometer 30mg/dL (65-110) Test 04/25/16 14:00 04/25/16 17:16 04/25/16 20:14 04/25/16 21:02 Glucometer 100mg/dL (65-110) 116mg/dL (65-110) 122mg/dL (65-110) Turbidity < 20 (0-20) Sodium Level 149MEQ/L (134-144) Potassium Level 6.4MEQ/L (3.6-5) Chloride Level 103MEQ/L (98-107) Carbon Dioxide Level 32MEQ/L (22-30) Anion Gap 14MEQ/L (5-15) Blood Urea Nitrogen 49.0MG/DL (7-17) Creatinine 2.8MG/DL (0.7-1.2) Glomerular Filtration Rate Calc 17 BUN/Creatinine Ratio 18RATIO (6-26) Glucose Level 56MG/DL (65-110) Calculated Osmolality 297MOSM/KG (261-280) Calcium Level 9.1MG/DL (8.4-10.2) Icterus Index < 2 (0-7) Chemistry Specimen Hemolysis 40 (0-25) Test 04/25/16 22:51 04/26/16 01:46 04/26/16 02:06 04/26/16 03:18 Turbidity < 20 (0-20) < 20 (0-20) Sodium Level 145MEQ/L (134-144) 144MEQ/L (134-144) Potassium Level 8.5MEQ/L (3.6-5) 8.2MEQ/L (3.6-5) Chloride Level 102MEQ/L (98-107) 104MEQ/L (98-107) Carbon Dioxide Level 31MEQ/L (22-30) 28MEQ/L (22-30) Anion Gap 12MEQ/L (5-15) 12MEQ/L (5-15) Blood Urea Nitrogen 48.0MG/DL (7-17) 51.0MG/DL (7-17) Creatinine 3.2MG/DL (0.7-1.2) 3.4MG/DL (0.7-1.2) Glomerular Filtration Rate Calc 15 14 BUN/Creatinine Ratio 15RATIO (6-26) 15RATIO (6-26) Glucose Level 130MG/DL (65-110) 116MG/DL (65-110) Calculated Osmolality 294MOSM/KG (261-280) 292MOSM/KG (261-280) Calcium Level 8.6MG/DL (8.4-10.2) 8.4MG/DL (8.4-10.2) Icterus Index < 2 (0-7) < 2 (0-7) Chemistry Specimen Hemolysis < 15 (0-25) 26 (0-25) Arterial Blood pH 7.180 (7.350-7.450) Arterial Blood Partial Pressure CO2 85MMHG (34-45) Arterial Blood pO2 at Patient Temp 75MMHG (80-100) Arterial Blood HCO3 32MEQ/L (22-26) Arterial Blood Total CO2 34.3MEQ/L (23-27) Arterial Blood Oxygen Saturation 91.0% (95.0-98.0) Arterial Blood Base Excess 1.1MMOL/L (-2.0-2.0) Oxygen Delivery Method (LAB) Bpap, % Bpap, % Blood Gas Oxygen Liter Flow Blood Gas Oxygen Percent Given 40 40 Blood Gas Vent Rate (0-30) Blood Gas Tidal Volume ML (0-1200) Glucometer 165mg/dL (65-110) White Blood Count 12.8T/MM3 (4.5-11.0) Red Blood Count 4.15M/MM3 (4.00-5.20) Hemoglobin 12.4GM/DL (12-16) Hematocrit 41.4% (36-46) Mean Corpuscular Volume 99.8UM3 (80-100) Mean Corpuscular Hemoglobin 29.9UUG (26-34) Mean Corpuscular Hemoglobin Concent 30.0GM/DL (31-37) RDW Standard Deviation 57.9FL (36.9-50.2) Platelet Count 252T/MM3 (130-400) Mean Platelet Volume 9.6UM3 (9.4-12.4) Neutrophils % (Manual) 85.0% (33-66) Lymphocytes % (Manual) 13.0% (23-45) Monocytes % (Manual) 2.0% (0-9.0) Absolute Neutrophils (Manual) 10.9T/MM3 (1.8-7.7) Lymphocytes # (Manual) 1.7T/MM3 (1-4.8) Monocytes # (Manual) 0.3T/MM3 (0-0.8) Red Cell Morphology Comment Normal Venous Blood pH 7.240 (7.31-7.41) Venous Blood Partial Pressure CO2 72MMHG (40-52) Venous Blood Partial Pressure O2 94MMHG (40-52) Venous Blood HCO3 31MEQ/L (22-26) Venous Blood Total Carbon Dioxide 33.1MEQ/L Venous Blood Oxygen Saturation 96.0% Venous Blood Base Excess 1.7MMOL/L (-2.0-2.0) Total Bilirubin 0.50MG/DL (0.20-1.30) Aspartate Amino Transf (AST/SGOT) 28U/L (14-36) Alanine Aminotransferase (ALT/SGPT) 22U/L (9-52) Alkaline Phosphatase 71U/L (38-126) Total Protein 6.7G/DL (6.3-8.2) Albumin 3.4G/DL (3.5-5.0) Globulin 3.3G/DL (2.4-3.6) Albumin/Globulin Ratio 1.0RATIO (1.1-2.2) Test 04/26/16 06:38 04/26/16 07:01 04/26/16 10:15 04/26/16 12:11 Glucometer 84mg/dL (65-110) White Blood Count 10.0T/MM3 (4.5-11.0) Red Blood Count 4.01M/MM3 (4.00-5.20) Hemoglobin 12.1GM/DL (12-16) Hematocrit 40.7% (36-46) Mean Corpuscular Volume 101.5UM3 (80-100) Mean Corpuscular Hemoglobin 30.2UUG (26-34) Mean Corpuscular Hemoglobin Concent 29.7GM/DL (31-37) RDW Standard Deviation 59.8FL (36.9-50.2) Platelet Count 232T/MM3 (130-400) Mean Platelet Volume 9.4UM3 (9.4-12.4) Neutrophils % (Manual) 69.0% (33-66) Lymphocytes % (Manual) 24.0% (23-45) Monocytes % (Manual) 6.0% (0-9.0) Eosinophils % (Manual) 1.0% (0-4) Absolute Neutrophils (Manual) 6.9T/MM3 (1.8-7.7) Lymphocytes # (Manual) 2.4T/MM3 (1-4.8) Monocytes # (Manual) 0.6T/MM3 (0-0.8) Eosinophils # (Manual) 0.1T/MM3 (0-0.5) Anisocytosis 1+ Red Cell Morphology Comment Abnormal Venous Blood pH 7.230 (7.31-7.41) Venous Blood Partial Pressure CO2 73MMHG (40-52) Venous Blood Partial Pressure O2 75MMHG (40-52) Venous Blood HCO3 31MEQ/L (22-26) Venous Blood Total Carbon Dioxide 32.8MEQ/L Venous Blood Oxygen Saturation 92.0% Venous Blood Base Excess 1.2MMOL/L (-2.0-2.0) Oxygen Delivery Method (LAB) Room air Blood Gas Oxygen Liter Flow Blood Gas Oxygen Percent Given Turbidity < 20 (0-20) < 20 (0-20) < 20 (0-20) Sodium Level 146MEQ/L (134-144) 146MEQ/L (134-144) 146MEQ/L (134-144) Potassium Level 7.5MEQ/L (3.6-5) 7.2MEQ/L (3.6-5) 7.4MEQ/L (3.6-5) Chloride Level 104MEQ/L (98-107) 106MEQ/L (98-107) 106MEQ/L (98-107) Carbon Dioxide Level 31MEQ/L (22-30) 28MEQ/L (22-30) 29MEQ/L (22-30) Anion Gap 11MEQ/L (5-15) 12MEQ/L (5-15) 11MEQ/L (5-15) Blood Urea Nitrogen 54.0MG/DL (7-17) 54.0MG/DL (7-17) 53.0MG/DL (7-17) Creatinine 3.6MG/DL (0.7-1.2) 3.4MG/DL (0.7-1.2) 3.3MG/DL (0.7-1.2) Glomerular Filtration Rate Calc 13 14 14 BUN/Creatinine Ratio 15RATIO (6-26) 16RATIO (6-26) 16RATIO (6-26) Glucose Level 86MG/DL (65-110) 111MG/DL (65-110) 120MG/DL (65-110) Calculated Osmolality 295MOSM/KG (261-280) 297MOSM/KG (261-280) 296MOSM/KG (261-280) Calcium Level 8.8MG/DL (8.4-10.2) 9.2MG/DL (8.4-10.2) 9.1MG/DL (8.4-10.2) Icterus Index < 2 (0-7) < 2 (0-7) < 2 (0-7) Plasma Lactate 0.7MMOL/L (0.6-2.2) Chemistry Specimen Hemolysis < 15 (0-25) 69 (0-25) 43 (0-25) Test 04/26/16 15:01 04/26/16 15:28 Urine Collection Type Cerda indwelling Urine Color Yellow (YELLOW) Urine Turbidity Clear (CLEAR) Urine pH 5.5 (5.0-8.0) Urine Specific Webber 1.025 (1.015-1.025) Urine Protein Trace (NEGATIVE) Urine Glucose (UA) Negative (NEGATIVE) Urine Ketones Negative (NEGATIVE) Urine Blood 2+ (NEGATIVE) Urine Nitrite Negative (NEGATIVE) Urine Bilirubin Negative (NEGATIVE) Urine Urobilinogen 0.2EU/DL (NORMAL) Urine Leukocyte Esterase Negative (NEGATIVE) Urine RBC 3-5/HPF (0-3) Urine WBC 0-1/HPF (0-5) Urine Squamous Epithelial Cells 0-5 Urine Bacteria None seen (NEGATIVE) Urine Hyaline Casts 0-1/LPF Urine Mucus Present Urine Culture Indicated Cult not indicated Potassium Level 7.4MEQ/L (3.6-5) Chemistry Specimen Hemolysis 76 (0-25) Microbiology Microbiology Date/Time Source Procedure Growth Status 04/25/16 13:10 Peripheral/Iv Start Blood Culture - Preliminary NO GROWTH AFTER 24 HOURS Resulted 04/25/16 12:47 Thigh Left Gram Stain - Final Resulted 04/25/16 12:47 Thigh Left - Preliminary CULTURE INITIATED - RESULTS PENDING Resulted Radiology CXR unremarkable History of Present Illness Lilly is well known to the nurses that she was admitted last month for hypoglycemia and urinary tract infection. She was brought to the emergency room by EMS today for increased pain in the right thigh and increased somnolence. On arrival to the emergency room. Her glucose was checked and it was found to be significantly low at 30. Patient was given 1 amp of dextrose. Is reported that on Saturday 04/21. [facility] by Danika andino APRN. She was then evaluated by Dr. Gandhi for surgical evaluation. He placed a rubber type band into 2 puncture holes in the medial aspect of the right thigh. At that time she was also started on Bactrim for treatment of potential skin infection. Shunt has a known history of insulin-dependent diabetes as well as morbid obesity with venous insufficiency. She was further evaluated in the emergency room today including laboratory studies. The BBC count was 20 normal at 8.9, hemoglobin 12.5, hematocrit 41.5, platelet count 245. Potassium was found to be elevated at 6.1, sodium 147, BUN 50, creatinine 2.9. Creatinine several weeks ago on 04/04/16 was 1.6. A urinalysis was obtained that was unremarkable. Chest x-ray was obtained that showed no acute infiltrate or edema. Immature on arrival to the emergency room was 99.0, blood pressures been normal and heart rate in the 70s. She is requiring 3 liters of oxygen by nasal cannula, which is not uncommon given her chronic COPD. Based on her findings of hypoglycemia, acute kidney injury, hyperkalemia accompanied with a right thigh wound. The hospitalist services were contacted and accepted patient for outpatient admission for further evaluation and treatment. Lilly is seen on initial evaluation while in the ER. She is rather somnolent, however, will arouse during conversation. Upon further evaluation of right thigh wound. Patient does become angry and curses at nursing staff due to the pain in the wound. 04/26/16 cross cover note for critically ill patient with progressive acute renal failure (repeat UA eval for casts pending but likely ATN associated with bactrim et al) and acute hypercapnic respiratory failure wiht underlying class 3 obesity leading to metabolic encephalopathy. I discussed the patient with Dr. Nix at 0132 and agree with ICU transfer, bipap, D50+ insulin, calcium glucona te and additional IVF. I ordered EKG which does not show interval changes or severe peaking of T waves, but patient does have pulse variability. Will attempt 1 amp bicarb, additional IVF and BIPAP setting adjustments with increased pressure and rate which with positioning to gut abd below thorax more with hopefully improve tidal volume. Patient barely withdraws to pain, so intubation may be needed if VBG and mentation do not improve over the hour. 04/26/16 This am, pt was seen in the ICU. She opens her eyes to voice and stimulation but does not follow commands. She moans and moves her upper ext to palpation of the right upper quadrant of her abdomen. She remains on BiPAP at 40-45%. VBG this am continues to show hypercapnia. Acidoses has improved now with pH of 7.23 form 7.18. Creatinine has continued to climb and urine outpt is poor but is picking up. BP are stable. HR stable. She did have a short run of SVT. She has had one BM on 04/25/16. Fiance and niece in room. Will repeat labs, if she is not improving, we will arrange transfer to [place] for nephrology assistance. She is going to need PT once she is more awake. Her po meds are being held at this time due to her somnolence. She was on Plavix for stent in 2012 that will be fine to hold at this time. Hospital Course Admit pt to outpt observation under the care of Dr Nix for treatment of acute kidney injury, hypo-glycemia, hyper kalemia, hypernatremia, and right thigh wound. Vascular wound care to evaluate right thigh. Rubber band was removed from the puncture holes and wound was irrigated. Wound care recommends using silver rope to pack the wound and half external dressing changed every shift. Will place Cerda catheter in light of chronic incontinence of this will add to delayed wound healing. Agent does not appear to be septic. However, based on presence of wound and known history of diabetes. Will initiate antimicrobial treatment of Ancef IV. Wound cultures and blood cultures pe nding. Will monitor Accu-Cheks carefully given hypoglycemia. Encourage patient to eat to bring blood sugars up. Patient did receive 1 amp of D50, 1 amp of calcium and IV fluids while in the emergency room. She was given 1 liter of normal saline. Continue hydration at 150 ML per hour and hopes to rehydrate the acute renal failure. Will recheck a BMP at 1700 today to follow blood counts, renal function and electrolytes. Patient may use oxygen therapy to maintain saturations. Did review home medications. Placed renal harming medications on hold including lisinopril, Lasix, Bactrim, and insulin. Recheck CBC and BMP tomorrow morning. Discuss further plan of care with Dr Nix Pt transferred to ICU during the early am hours of 04/26 due to persistent hyperkalemia and poor urine output. She has been given several boluses of D50 with regular insulin. She has been given 60mg Kayexalate enemas with subsequent BMs. She is on D5 1/2 NS. She has started to put out a little more urine. UA is bland. She continues with elevated creatinine and hyperkalemia. She remains acidotic. She is on BiPAP at 40-45%. She continues to be lethargic, not following commands but will open her eyes to voice at time. She had a short run of SVT earlier this am but nothing since. No ECG evidence of hyperkalemia. Due to her lack of response to our efforts, arrangements have been made to transfer her to [place] [facility] so she can get a web solutions architect and possible hemodialysis. She has a wound that is likely infected. Bl Cx negative to date. She did have a low grade temp 99.[address] Kovacs has agreed to accept pt and Dr. Maurizio Thompson nephrology is going to consult. She will likely need wound care as well. Pt is stable to transfer by ground to [place]. Problems: (1) Acute renal injury Status: Acute Assessment & Plan: cross cover note for critically ill patient with progressive acute renal failure (repeat UA eval for casts pending but likely ATN associated with bactrim et al) and acute hypercapnic respiratory failure wiht underlying class 3 obesity leading to metabolic encephalopathy. I discussed the patient with Dr. Nix at 0132 and agree with ICU transfer , bipap, D50+insulin, calcium gluconate and additional IVF. I ordered EKG which does not show interval changes or severe peaking of T waves, but patient does have pulse variability. Will attempt 1 amp bicarb, additional IVF and BIPAP setting adjustments with increased pressure and rate which with positioning to gut abd below thorax more with hopefully improve tidal volume. Patient barely withdraws to pain, so intubation may be needed if VBG and mentation do not improve over the hour. (2) Hyperkalemia Status: Acute Assessment & Plan: POA- blood sugar 30 on arrival (3) Acute respiratory failure with hypoxemia Status: Acute Assessment & Plan: and hypercapnea--adjust bipap and position with repeat labs (4) Open thigh wound Status: Acute (5) Hypoglycemia Status: Acute Assessment & Plan: POA- blood sugar 30 on arrival (6) Hypernatremia Status: Acute Assessment & Plan: POA- NA 147 (7) Diabetes mellitus Status: Chronic (8) COPD (chronic obstructive pulmonary disease) Status: Chronic (9) Hypothyroidism Status: Chronic (10) HTN (hypertension) Status: Chronic (11) CAD (coronary artery disease) Status: Chronic (12) Morbid obesity with BMI of 50.0-59.9, adult Status: Chronic (13) Hyperlipidemia associated with type 2 diabetes mellitus Status: Chronic (14) Depression with anxiety Status: Chronic (15) PVD (peripheral vascular disease) Status: Chronic (16) GERD (gastroesophageal reflux disease) Status: Chronic (17) OA (osteoarthritis) Status: Chronic (18) Tobacco dependency Status: Chronic Assessment & Plan: 1. Acute renal failure - H/O chronic kidney disease Stage 2. - Pt recently placed on Bactrim and had her K replacement increased. - ? dehydration - urine output improving. 2. Hyperkalemia - kayexelate enema - D50 and Regular insulin - repeat labs - If pt does not improve by afternoon, will arrange transfer to [place] 3. Thigh wound - on antibiotics - wound and skin care - Bl cx negative. No fevers, WBC normal. 4. Hypernatremia - change IVF to D5 1/2 NS 5. Hypoglycemia - change IVF to D5 1/2 NS 6. Acute respiratory failure with hypoxia - on BiPAP 7. AMS - Likely related to current illness 8. DM - blood sugars are reasonable, pt on D5 now - If BS elevate, will give insulin SS. This will help with her hyperkalemia. 9. COPD\\with persistent tobacco dependency - Resp therapy - CXR unremarkable 10. Hypothyroidism - on synthroid, on hold for now due to inability to give po will change to IV if her status persists 11. HTN - Off antihypertensives, BP stable. - Will use lopressor IV prn if BP elevates 12. HLP - Statin on hold 13. Morbid obesity 14. PVD - h/o LE [employer]PER[employer] 15. CAD - h/o stents in 2012. - Plavix on hold 16. GERD - Will start IV PPI 17. Tobacco dependency Code Status Full Code, unverified Home Meds Active Scripts Budesonide (Pulmicort Flexhaler 180) 120 Puff/Inhaler Inha, 1 PUFF ORAL INH BID , #1 INHALER Prov:JUDY MUHAMMAD MD 12/25/15 Reported Medications Nitroglycerin (Nitroglycerin) 0.4 Mg Tab.subl, 0.4 MG PO Q5MIN Y for CHEST PAIN 04/25/16 Sulfamethoxazole/Trimethoprim (Bactrim Ds Tablet) 1 Each Tablet, 1 TAB PO BID 04/25/16 Furosemide (Furosemide) 40 Mg Tablet, 40 MG PO BID 09/25/15 Hum Insulin NPH/Reg Insulin Hm (Novolin 70-30 100 Unit/ml Vial) 100 Unit/Ml Inj , 70 UNIT SQ WS 05/15/15 Hum Insulin NPH/Reg Insulin Hm (Novolin 70-30 100 Unit/ml Vial) 100 Unit/Ml Inj , 66 UNIT SQ WB 05/15/15 Alprazolam (Alprazolam) 0.5 Mg Tablet, 0.5 MG PO TID 12/29/15 Potassium Chloride (Klor-Con M20) 20 Meq Tablet, 20 MEQ PO DAILY 05/15/15 Simvastatin (Simvastatin) 40 Mg Tablet, 40 MG PO DAILY 04/04/15 Lisinopril (Lisinopril) 20 Mg Tablet, 20 MG PO DAILY 04/04/15 Clopidogrel Bisulfate (Clopidogrel) 75 Mg Tablet, 75 MG PO DAILY 04/04/15 Multivit with Calcium,Iron,Min (Women's One Daily) 1 Each Tablet, 1 TAB PO DAILY 01/26/14 Albuterol Sulfate (Proventil HFA 90 mcg/actuation) 200 Puff/6.7 G Inha, 2 PUFF INH Q4HR Y for PRN ORDERS 01/26/14 Pantoprazole Sodium (Pantoprazole Sodium) 40 Mg Tablet.dr, 40 MG PO ACB 01/26/14 Gabapentin (Gabapentin) 300 Mg Capsule, 300 MG PO TID 05/04/12 Meclizine Hcl (Meclizine Hcl) 25 Mg Tablet, 25 MG PO TID 05/04/12 Levothyroxine Sodium (Levothroid) 25 Mcg Tablet, 25 MCG PO ACB 05/03/12 Discharge Disposition Pt going to [facility] in [facility]. Documentation Requirements Documenting Diagnosis Altered Mental Status, Renal Insufficiency, Confusion, Diabetes LEAH WRIGHT MD Apr 26, 2016 16:51 Procedures Procedure Status Date Provider(s) ROUTINE VENIPUNCTURE Completed 04/03/16 INSERT PICC CATH Completed 04/03/16 CHEST X-RAY 1 VIEW FRONTAL Completed 04/03/16 METABOLIC PANEL TOTAL CA Completed 04/03/16 METABOLIC PANEL TOTAL CA Completed 04/03/16 URINALYSIS AUTO W/SCOPE Completed 04/03/16 REAGENT STRIP/BLOOD GLUCOSE Completed 04/03/16 REAGENT STRIP/BLOOD GLUCOSE Completed 04/03/16 REAGENT STRIP/BLOOD GLUCOSE Completed 04/03/16 REAGENT STRIP/BLOOD GLUCOSE Completed 04/03/16 REAGENT STRIP/BLOOD GLUCOSE Completed 04/03/16 REAGENT STRIP/BLOOD GLUCOSE Completed 04/03/16 REAGENT STRIP/BLOOD GLUCOSE Completed 04/03/16 REAGENT STRIP/BLOOD GLUCOSE Completed 04/03/16 REAGENT STRIP/BLOOD GLUCOSE Completed 04/03/16 REAGENT STRIP/BLOOD GLUCOSE Completed 04/03/16 REAGENT STRIP/BLOOD GLUCOSE Completed 04/03/16 REAGENT STRIP/BLOOD GLUCOSE Completed 04/03/16 REAGENT STRIP/BLOOD GLUCOSE Completed 04/03/16 ASSAY OF LACTIC ACID Completed 04/03/16 PROCALCITONIN (PCT) Completed 04/03/16 ASSAY OF TROPONIN QUANT Completed 04/03/16 COMPLETE CBC W/AUTO DIFF WBC Completed 04/03/16 COMPLETE CBC W/AUTO DIFF WBC Completed 04/03/16 BLOOD CULTURE FOR BACTERIA Completed 04/03/16 BLOOD CULTURE FOR BACTERIA Completed 04/03/16 CULTURE AEROBIC IDENTIFY Completed 04/03/16 URINE CULTURE/COLONY COUNT Completed 04/03/16 MICROBE SUSCEPTIBLE MAINOR Completed 04/03/16 ELECTROCARDIOGRAM TRACING Completed 04/03/16 AIRWAY INHALATION TREATMENT Completed 04/03/16 AIRWAY INHALATION TREATMENT Completed 04/03/16 CHEST WALL MANIPULATION Completed 04/03/16 HYDRATE IV INFUSION ADD-ON Completed 04/03/16 HYDRATE IV INFUSION ADD-ON Completed 04/03/16 HYDRATE IV INFUSION ADD-ON Completed 04/03/16 THER/PROPH/DIAG INJ SC/IM Completed 04/03/16 THER/PROPH/DIAG INJ IV PUSH Completed 04/03/16 TX/PRO/DX INJ NEW DRUG ADDON Completed 04/03/16 TX/PRO/DX INJ SAME DRUG HOT KETTLE TENDER Completed 04/03/16 EMERGENCY DEPT VISIT Completed 04/03/16 [id number]) Completed 04/03/16 [id number]"HOSPITAL OBSERVATION SERVICE, PER HOUR" Completed 04/03/16 [id number]"HOSPITAL OBSERVATION SERVICE, PER HOUR" Completed 04/03/16 [id number]"HOSPITAL OBSERVATION SERVICE, PER HOUR" Completed 04/03/16 [id number]"HOSPITAL OBSERVATION SERVICE, PER HOUR" Completed 04/03/16 [id number]"INJECTION, CEFTRIAXONE SODIUM, PER 250 MG" Completed 04/03/16 [id number]"INJECTION, ENOXAPARIN SODIUM, 10 MG" Completed 04/03/16 [id number]"INJECTION, ENOXAPARIN SODIUM, 10 MG" Completed 04/03/16 [id number]"INJECTION, INSULIN, PER 5 UNITS" Completed 04/03/16 [id number]"INJECTION, LORAZEPAM, 2 MG" Completed 04/03/16 [id number]% DEXTROSE/NORMAL SALINE (500 ML=1 UNIT) Completed 04/03/16 [id number]% DEXTROSE/NORMAL SALINE (500 ML=1 UNIT) Completed 04/03/16 [id number]"INFUSION, NORMAL SALINE SOLUTION , 250 CC" Completed 04/03/16 DEXTROSE INJ 50% 25GM/50ML PFS Completed 04/03/16 DEXTROSE INJ 50% 25GM/50ML PFS Completed 04/03/16 DEXTROSE INJ 50% 25GM/50ML PFS Completed 04/03/16 Encounters Encounter Location Arrival/Admit Date Discharge/Depart Date Attending Provider Discharged Inpatient [facility] 04/26/16 11:41am 04/26/16 5:20pm TEDDY NIX MD Discharged Inpatient (obs) [facility] 04/03/16 4:32pm 04/04/16 3: 35pm CARIE SALAZAR MD
--- OUTSIDE RECORDS SUMMARY | 2016-08-13 11:28 | XMS REPORT | Referral Summary ---
Author Author [facility] Organization [facility] Address Unknown Phone Unavailable Care Team Providers Care Staff Internist Office Based Only Name Role Phone Bharathi Adrian Primary Care Physician [phone] Encounter VC Date(s): 04/26/16 - 05/15/16 [facility] [address] [place] [address] [phone] Discharge Disposition: 01-Home or Self Care Attending Physician: Tan Lui MD Admitting Physician: Que Kovacs DO Vital Signs Most recent to 1 oldest [Reference Range]: Temperature Axillary 37.1 degC [35.2-36.7 degC] *HI* (05/11/16 11:00 AM) Temperature Oral 37.4 degC [35.8-37.3 degC] *HI* (05/15/16 12:03 PM) Temperature Temporal 37.0 degC Artery [36.3-37.8 (05/08/16 8:00 PM) degC] Peripheral Pulse 83 bpm Rate [60-100 bpm] (05/15/16 12:03 PM) Heart Rate Monitored 77 bpm [60-100 bpm] (05/15/16 9:56 AM) Respiratory Rate 20 br/min [14-20 br/min] (05/15/16 12:03 PM) Blood Pressure 164/52 mmHg [90-140/60-90 mmHg] *HI* (05/15/16 12:03 PM) Mean Arterial 108 mmHg Pressure, Cuff (05/14/16 8:00 PM) Blood Pressure 258/250 mmHg Invasive *HI* [90-140/60-90 mmHg] (05/01/16 8:30 AM) Mean Arterial 57 mmHg Pressure, Invasive (05/01/16 8:00 AM) Pulse Rate [60-100 80 bpm bpm] (05/14/16 8:53 PM) SpO2 94 % (05/15/16 12:03 PM) Remote Telemetry Ongoing (05/15/16 10:19 AM) Problem List Condition Effective Dates Status [...] heparin containing Active compounds1 1devloped 04/2016 Medications albuterol 5 mg/mL (0.5%) inhalation solution 2.5 mg 0.5 mL, NEB, q2hr (scheduled), Other (See Comment), 0 Refill(s) Start Date: 05/15/16 Status: Ordered albuterol 5 mg/mL (0.5%) inhalation solution 2.5 mg 0.5 mL, NEB, TID, 0 Refill(s) Start Date: 05/15/16 Status: Ordered amiodarone 200 mg oral tablet 400 mg 2 tabs, Oral, Daily, 0 Refill(s) Start Date: 05/15/16 Status: Ordered clopidogrel 75 mg, Oral, Daily, [...] Refill(s) Start Date: 04/26/16 Status: Ordered Results Blood Gases Most recent to 1 oldest [Reference Range]: pH [7.35-7.45] 7.35 (05/10/16 7:31 AM) pCO2 Art [35-45 52 mmHg mmHg] *HI* (05/10/16 7:31 AM) Bicarbonate [22-26 28 mEq/L mEq/L] *HI* (05/10/16 7:31 AM) Base Excess Art 2 [0-2] (05/10/16 7:31 AM) O2 Sat Art 94.0 % [90.0-97.0 %] (05/10/16 7:31 AM) pO2 Art [80-100 75 mmHg mmHg] *LOW* (05/10/16 7:31 AM) LPM Art 4.0 L/min (05/10/16 7:31 AM) O2 Panel nasal cannula (05/10/16 7:31 AM) Vent Mode acvc+ (05/03/16 6:14 AM) Set Vt 500 mL (05/03/16 6:14 AM) Set Rate 12 br/min (05/04/16 9:49 AM) PEEP 5.0 (05/03/16 6:14 AM) Spec Site A. radialis l. (05/10/16 7:31 AM) Hematology Most recent to 1 oldest [Reference Range]: WBC [4.8-10.8 9.2 10*3/uL 10*3/uL] (05/15/16 7:00 AM) RBC [4.00-5.20] 3.76 *LOW* (05/15/16 7:00 AM) Hgb [12.0-16.0 11.0 gm/dL gm/dL] *LOW* (05/15/16 7:00 AM) Hct [37.0-47.0 %] 36.2 % *LOW* (05/15/16 7:00 AM) MCV [82.0-99.0 fL] 96.3 fL (05/15/16 7:00 AM) MCH [27.0-32.0 pg] 29.3 pg (05/15/16 7:00 AM) MCHC [32.0-36.0 30.4 gm/dL gm/dL] *LOW* (05/15/16 7:00 AM) RDW [11.5-14.5 %] 15.1 % *HI* (05/15/16 7:00 AM) Platelet [150-400 188 10*3/uL 10*3/uL] (05/15/16 7:00 AM) MPV [9.4-12.4 fL] 10.2 fL (05/15/16 7:00 AM) Immature 0.9 % Granulocytes (05/15/16 7:00 AM) [0.0-1.0 %] Neutrophils [51-75 75 % %] (05/15/16 7:00 AM) Lymphocytes [20-46 14 % %] *LOW* (05/15/16 7:00 AM) Monocytes [4-11 %] 7 % (05/15/16 7:00 AM) Eosinophils [0-4 %] 3 % (05/15/16 7:00 AM) Basophils [0-2 %] 1 % (05/15/16 7:00 AM) Neutro Absolute 6.83 [1.90-7.00] (05/15/16 7:00 AM) Lymph Absolute 1.32 [0.80-3.30] (05/15/16 7:00 AM) [place] Absolute 0.61 [0.30-1.00] (05/15/16 7:00 AM) Eos Absolute 0.27 [0.00-0.50] (05/15/16 7:00 AM) Baso Absolute 0.05 [0.00-0.20] (05/15/16 7:00 AM) Nucleated RBC 0.0 /100 WBC Automated [0 /100 (05/15/16 7:00 AM) WBC] Differential Reviewed (05/10/16 3:36 AM) Coagulation Most recent to 1 oldest [Reference Range]: INR [0.9-1.2] 1.1 (05/15/16 7:00 AM) PTT [25.0-35.0 34.2 seconds seconds] (05/14/16 5:41 AM) Heparin Induced Positive Antibody [Negative] *ABN* (05/09/16 3:40 PM) Heparin Induced OD 2.418 1 (05/09/16 3:40 PM) 1Result Comment: % of Patients with Serotonin Optical Density Reading release confirmed HIT <0.400.1% 0.40 - <1.004.7% 1.00 - <1.4029.6% 1.40 - <2.057.7% > or=2.0091.6% A weak positive test result (0.40 - <1.00) in most patients is strong evidence against the diagnosis of HIT. Chemistry Most recent to 1 oldest [Reference Range]: Sodium Lvl [136-144 142 mEq/L mEq/L] (05/15/16 7:00 AM) Potassium Lvl 4.6 mEq/L [3.6-5.1 mEq/L] (05/15/16 7:00 AM) Chloride [99-109 106 mEq/L mEq/L] (05/15/16 7:00 AM) CO2 [22-32 mEq/L] 26 mEq/L (05/15/16 7:00 AM) AGAP [3-20] 10 (05/15/16 7:00 AM) BUN [4-20 mg/dL] 24 mg/dL *HI* (05/15/16 7:00 AM) Glucose Lvl [70-100 136 mg/dL mg/dL] *HI* (05/15/16 7:00 AM) Creatinine Lvl 1.77 mg/dL [0.44-1.03 mg/dL] *HI* (05/15/16 7:00 AM) eGFR [>60] 29 1 *ABN* (05/15/16 7:00 AM) Calcium Lvl 9.3 mg/dL [8.6-10.0 mg/dL] (05/15/16 7:00 AM) Albumin Lvl [3.5-4.8 3.1 gm/dL gm/dL] *LOW* (05/15/16 7:00 AM) Total Protein 6.4 gm/dL [6.1-7.9 gm/dL] (05/13/16 6:07 AM) Globulin [1.9-4.3 3.5 gm/dL gm/dL] (05/13/16 6:07 AM) ALT [14-54 U/L] 15 U/L (05/13/16 6:07 AM) AST [15-41 U/L] 20 U/L (05/13/16 6:07 AM) Alk Phos [26-104 55 U/L U/L] (05/13/16 6:07 AM) Bili Total [0.2-1.2 0.9 mg/dL 2 mg/dL] (05/13/16 6:07 AM) Iron [50-170 mcg/dL] 92 mcg/dL (04/26/16 8:15 PM) TIBC [286-569 407 mcg/dL mcg/dL] (04/26/16 8:15 PM) Iron Sat [11-46 %] 23 % (04/26/16 8:15 PM) Transferrin [192-382 273 mg/dL mg/dL] (04/26/16 8:15 PM) Magnesium Lvl 1.9 mg/dL [1.8-2.5 mg/dL] (05/15/16 7:00 AM) Uric Acid [2.6-8.0 9.3 mg/dL mg/dL] *HI* (04/26/16 8:15 PM) Phosphorus [2.4-4.7 4.8 mg/dL 3 mg/dL] *HI* (05/15/16 7:00 AM) Calcium Ionized 1.33 mmol/L [1.19-1.41 mmol/L] (05/15/16 7:00 AM) Total CK [38-234 917 U/L U/L] *HI* (04/26/16 8:15 PM) BNP [0-99 pg/mL] 408 pg/mL *HI* (05/05/16 3:58 AM) Troponin [<0.06 0.06 ng/mL 4 ng/mL] *CRIT* (04/27/16 5:56 PM) Lactic Acid Lvl 0.9 mEq/L [0.5-2.2 mEq/L] (04/26/16 8:15 PM) 25-Hydroxy D2 <7 ng/mL (04/26/16 8:15 PM) 25-Hydroxy D3 29 ng/mL (04/26/16 8:15 PM) 25-Hydroxy D Total 29 ng/mL 5 [30-74 ng/mL] *LOW* (04/26/16 8:15 PM) Vitamin B12 Lvl 621 pg/mL [213-816 pg/mL] (04/26/16 8:15 PM) Folate Lvl [7.0-31.4 16.5 ng/mL ng/mL] (04/26/16 8:15 PM) Cortisol AM [7-18 10 mcg/dL mcg/dL] (04/27/16 3:56 AM) Blood Glucose, 151 mg/dL Capillary [70-100 *HI* mg/dL] (05/15/16 2:36 PM) Blood Glucose, High Capillary Out of (05/08/16 3:00 AM) Range Chol [0-200 mg/dL] 117 mg/dL (04/27/16 3:56 AM) Trig [0-150 mg/dL] 366 mg/dL *HI* (05/05/16 3:58 AM) HDL [>40 mg/dL] 24 mg/dL *ABN* (04/27/16 3:56 AM) LDL [0-100 mg/dL] 44 mg/dL (04/27/16 3:56 AM) VLDL Cholesterol 49 mg/dL [0-30 mg/dL] *HI* (04/27/16 3:56 AM) Cardiac Risk 4.9 [0.0-5.0] (04/27/16 3:56 AM) Hep A IgM Negative (04/26/16 8:15 PM) Hep Bs Ab Negative (04/26/16 8:15 PM) Hep Bs Ag Negative (04/26/16 8:15 PM) Hep C Ab Negative (04/26/16 8:15 PM) Hep B Core IgM Negative (04/26/16 8:15 PM) HIV 1 and 2 Abs Non-reactive (04/26/16 8:15 PM) TSH with Reflex Free 0.61 T4 [0.35-5.50] (04/26/16 8:15 PM) Hgb A1c [4.1-5.6 %] 6.9 % *HI* (04/26/16 8:15 PM) eAvg Glucose 151.3 mg/dL (04/26/16 8:15 PM) [place] 6.84 mg/dL 6 [place] *HI* (04/26/16 8:15 PM) Lambda FLC[place] 5.37 mg/dL 7 *HI* (04/26/16 8:15 PM) [place] Ratio[place] 1.27 8 (04/26/16 8:15 PM) Procalcitonin 0.24 ng/mL 9 [0.00-0.09 ng/mL] *HI* (05/01/16 4:16 AM) 1Result Comment: Multiply eGFR results by 1.21 for race. 2Result Comment: Naproxen, specifically the metabolite O-desmethylnaproxen, may cause spurious elevation in Total Bilirubin levels. 3Result Comment: High dosages of liposomal Amphotericin B (AmBisome) therapy or other drug preparations that use a liposomal envelope to facilitate drug delivery may cause falsely elevated results for phosphorus. 4Result Comment: Critical value called, and read-back verified. Called to Du Grossman RN [id number] 18:49 04/27/2016 5Result Comment: The desirable level of 25-Hydroxy Vitamin D Total(D2 + D3) is 30-74 ng/mL. A level consistently >200 is potentially toxic. 6Result Comment: Reference Range: 0.3300-1.94 7Result Comment: Reference Range: 0.5700-2.63 8Result Comment: Reference Range: 0.2600-1.65 Test Performed by: [place] [address] Manager Cardiac Cath: Lupillo Staton II, M.D., Ph.D. 9Result Comment: Normal: <0.1 ng/mL (infants >72 hrs - adults) Suspected Lower Respiratory Tract Infection 0.10-0.25 ng/mL=Low likelihood for bacterial infection; Antibiotics discouraged. >0.25 ng/mL=Increased likelihood for bacterial infection; Antibiotics encouraged. Suspected Sepsis: Strongly consider initiating antibiotics in all unstable patients. 0.10-0.50 ng/mL=Low likelihood for sepsis; Antibiotics discouraged. >0.50 ng/mL=Increased likelihood for sepsis; Antibiotics encouraged. Decisions on antibiotic use should not be based solely on procalcitonin levels. If antibiotics are administered, repeat procalcitonin testing should be obtained every 2-3 days to consider early antibiotic cessation. PCT is a dynamic biomarker and most useful when trends are analyzed over time in accompaniment with other clinical data. Interpretation should be based upon clinical context and algorithms. Immunizations Given and Recorded Vaccine Date Status Refusal Reason influenza virus vaccine, inactivated 05/04/16 Given pneumococcal 23-polyvalent vaccine 05/04/16 Given Procedures Procedure Date Related Diagnosis Body Site Arterial puncture, withdrawal of blood for 05/10/16 diagnosis Arterial puncture, withdrawal of blood for 05/04/16 diagnosis Arterial puncture, withdrawal of blood for 05/03/16 diagnosis Arterial puncture, withdrawal of blood for 05/03/16 diagnosis Arterial puncture, withdrawal of blood for 05/02/16 diagnosis Arterial puncture, withdrawal of blood for 04/30/16 diagnosis Arterial puncture, withdrawal of blood for 04/29/16 diagnosis Social History Social History Type Response Smoking Status Current every day smoker; Type: Cigarettes; Tobacco use per day: 1 Pack Assessment and Plan No data available for this section
[2016-08-13 12:20] VITALS: BP 147/60; PULSE 59; RESP 18; TEMP 98.1; O2SAT 97
[2016-08-13 12:21] VITALS: Ht 157.5 cm; Wt 131.5 kg
[2016-08-13 13:15] LABS: BASOPHILS % (AUTO) 0.3 % (0-2); EOSINOPHILS # (AUTO) 0.3 T/MM3 (0-0.5); EOSINOPHILS % (AUTO) 2.8 % (0-4); HCT - HEMATOCRIT 31.2 % (36-46); HGB - HEMOGLOBIN 9.7 GM/DL (12-16); IMMATURE GRANULOCYTE # (AUTO) 0.02 T/MM3 (0.00-0.03); IMMATURE GRANULOCYTE % (AUTO) 0.2 % (0.0-0.5); LYMPHOCYTES # (AUTO) 1.5 T/MM3 (1-4.8); LYMPHOCYTES % (AUTO) 13.9 % (23-45); MEAN CORPUSCULAR HGB 29.1 UUG (26-34); MEAN CORPUSCULAR HGB CONC(MCHC 31.1 GM/DL (31-37); MEAN CORPUSCULAR VOLUME 93.7 UM3 (80-100); MONOCYTES # (AUTO) 0.6 T/MM3 (0-0.8); MONOCYTES % (AUTO) 5.4 % (0-9.0); NEUTROPHILS #(AUTO)-ABSOLUTE 8.4 T/MM3 (1.8-7.7); NEUTROPHILS % (AUTO) 77.4 % (33-66); RED BLOOD COUNT 3.33 M/MM3 (4.00-5.20); WBC - WHITE BLOOD COUNT 10.9 T/MM3 (4.5-11.0)
[2016-08-13 13:24] LABS: INR 1.14 (0.76-1.04); PROTHROMBIN TIME 12.4 SEC (9.31-12.49)
[2016-08-13 13:32] VITALS: RESP 20
--- NOTE | 2016-08-13 13:39 | HPPDOC ---
JEROME BAIN Bharathi CLINICAL SCIENTIST 08/13/16 1201: HPI - Adult Date DATE: 08/13/16 TIME: 11:45 General Chief Complaint: rash & skin breakdown History of Present Illness Cha was seen by both PCP (Dr. Rivers) and taker down (Dr. Whelan) on 08/13. Dr. Whelan increased Levemir and introduced Novolog before meals d/t hyperglycemia ranging from 200 to "HI" on monitor. Dr. Rivers noted macerated skin to both posterior legs, thought to be from urinary incontinence and assoc. poor self-hygiene. Arrangements were then made for direct admission under the hospitalist service. Her skin breakdown is complicated by the fact that the patient walks "as little as possible" - she states that her legs don't support her, and feel weak, and she has too big of a belly. Also urinary incontinence increased since CLINICAL SCIENTIST at increased Lasix dose a few weeks ago. This has helped her leg swelling, but has made it difficult for her significant other to keep her dry. She had a significant illness the end of Apr, 2016 (ALO and severe hyperkalemia), and post-discharge was sent to [facility] for a couple months. After that, she lived with her niece in [place], and finally moved back in with her SO at the beginning of July. ROS was only positive for leg weakness, chronic cough that is slightly worse over the last couple of days, and chronic shortness of breath. Past Medical History Past Medical History 1. Diabetes mellitus, managed by Dr. Whelan 2. Hypertension 3. Hyperlipidemia 4. Coronary artery disease with myocardial infarction in 2009, and stent of right coronary artery in 06/[address] Wynn 5. COPD 6. Hypothyroidism 7. Chronic kidney disease, stage III 8. Depression/anxiety 9. PAD 10. A-fib dx in 04/2016 11. DVT dx in 04/2016 to right common femoral vein 12. HIT Surgical History Patient's Surgical History: 1. Cholecystectomy 2. Hysterectomy 3. Cardiac catheterization/RCA stent June 2012 4. Left SFA FRUIT CHECKER in October,, Dr. Wynn Current Medications Home Meds Active Scripts Nystatin (Nystatin) 50,000,000 Unit Powder.ea., 1 APPLIC TOP TID for 30 Days, # 5 TUBE Prov:LEAH WRIGHT MD 04/26/16 Budesonide (Pulmicort Flexhaler 180) 120 Puff/Inhaler Inha, 1 PUFF ORAL INH BID , #1 INHALER Prov:JUDY MUHAMMAD MD 12/25/15 Reported Medications Clopidogrel Bisulfate (Clopidogrel) 75 Mg Tablet, 75 MG PO DAILY 04/04/15 Pantoprazole Sodium (Pantoprazole Sodium) 40 Mg Tablet.dr, 40 MG PO ACB 01/26/14 Levothyroxine Sodium (Levothroid) 25 Mcg Tablet, 25 MCG PO ACB 05/03/12 Allergies: Coded Allergies: heparin (Verified Allergy, Severe, THROMBOCYTOPENIA, 08/13/16) aspirin (Verified Allergy, Unknown, 04/03/16) bupropion (Verified Allergy, Unknown, 04/03/16) Family History Family History: Mother has coronary artery disease, maternal aunt has diabetes and chronic kidney disease Social History Smoking Status: Former smoker (2 MONTHS AGO) # of Packs/Tins per Day: 1 # of Years: 50 Substance Use Type: does not use Alcohol Intake: none Sexuality: male partner Household Members: significant other Current Occupational Status: disabled Advance Directives: Yes Full Code Social History Comments PCP - SHIRLEY WHELAN Review of Systems Constitutional: REPORTS: weakness (legs), DENIES: chills, fever Eyes Vision: DENIES: vision changes ENMT Sinuses: FOUND: other (dry nose from O2), NOT FOUND: rhinorrhea Mouth/Throat: DENIES: sore throat Cardiovascular DENIES: chest pain, dyspnea on exertion Vascular: pedal edema Pulmonary Respiratory: cough, dyspnea (on exertion) GI Upper Abdomen: DENIES: nausea, vomiting Lower Abdomen: DENIES: constipation, diarrhea General: frequency, incontinence, DENIES: dysuria Musculoskeletal General: weakness (legs) Integumentary Skin: rash, see HPI Neurological General: DENIES: headache, memory disturbances, numbness, tingling Psychiatric Psychiatric: anxiety (used to take Xanax) Hematologic/Lymphatic DENIES: anemia Allergic/Immunological DENIES: frequent infections All Other Systems All Other Systems: Reviewed (remainder of 10-point ROS Neg.) Physical Exam General General Nourishment: well nourished, well developed, obese Height (Feet): 5 Height (Inches): 2.00 Eyes Brief: FOUND: PERRL, NOT FOUND: scleral icterus ENMT Brief: FOUND: mucosa moist, NOT FOUND: normal dentition (decay; missing teeth) Neck Brief: FOUND: other (supple) Respiratory Brief: FOUND: wheezes (faint) Cardiovascular Auscultation: FOUND: S1, S2 Comments trace edema to both lower ext. PVD changes to both lower ext Abdomen Inspection: NOT FOUND: distention Palpation: FOUND: soft Auscultation: FOUND: hypoactive Integumentary (brief) Integumentary Brief: FOUND: dry, pink, warm Comments both posterior upper legs are erythemic and moist with urine. There is a small stage II ulcer to her left buttock. There is a scabbed over lesion to her right posterior thigh. There is no obvious candidiasis. Urine moisture was noted on abdomen and in groin. Neurologic (brief) Neurological Brief: FOUND: cranial 2-12 intact (grossly) Neurologic GCS Eye Opening: (4)Spontaneous GCS Verbal: (5)Oriented GCS Motor: (6)Obeys Commands RN Documented GCS Total: 15 Psychiatric (brief) FOUND: alert, attentive, normal affect, oriented Assessment & Plan Problems: (1) Self-care deficit for hygiene (2) Skin breakdown (3) Incontinence Status: Chronic Qualifiers: Incontinence type: urinary (4) COPD (chronic obstructive pulmonary disease) Status: Chronic (5) Morbid obesity with BMI of 50.0-59.9, adult (6) CAD (coronary artery disease) Status: Chronic (7) Chronic kidney disease, stage III (moderate) Status: Chronic (8) Hypothyroidism Status: Chronic (9) HTN (hypertension) Status: Chronic (10) Type II diabetes mellitus, uncontrolled Status: Chronic (11) PVD (peripheral vascular disease) Status: Chronic (12) Atrial fibrillation Onset Date: ~ 04/2016 Status: Chronic (13) Right leg DVT Onset Date: ~ 04/2016 (14) GERD (gastroesophageal reflux disease) Status: Chronic Plan/Intensity of Service Admit, observation status under the hospitalist service. 1. Skin breakdown with open lesions, secondary to urinary incontinence. - Provide good skin care. Consult the wound nurse for recommendations - Self deficits for hygiene; consult Dressmaker Or Tailor. - Assess septic w/u given erythemic appearance, concerning for infection. 2. DM2 - monitor sugars. She had A1c checked today at Dr. Whelan's office - results pending. - resume insulin schedule as determined by Dr. Whelan. 3. A-fib - cont. Coumadin per pharm. protocol - also had DVT to right femoral vein in Apr, 2016. 4. Hx of COPD - cont. inhalers and oxygen. - stable but with a worse cough - check CXR. 5. CAD/PVD - cont. Plavix - she sees Dr. yWnn. Further orders pending lab results. D/W Dr. Evans. DVT Prophylaxis: Coumadin Code Status Hospital Course Summary Disclaimer The hospital course summary below is not to be considered part of the above Progress Note. Hospital Course Summary 08/13/16 Admit, observation status under the hospitalist service. 1. Skin breakdown with open lesions, secondary to urinary incontinence. - Provide good skin care. Consult the wound nurse for recommendations - Self deficits for hygiene; consult Dressmaker Or Tailor. - Assess septic w/u given erythemic appearance, concerning for infection. 2. DM2 - monitor sugars. She had A1c checked today at Dr. Whelan's office - results pending. - resume insulin schedule as determined by Dr. Whelan. 3. A-fib - cont. Coumadin per pharm. protocol - also had DVT to right femoral vein in Apr, 2016. 4. Hx of COPD - cont. inhalers and oxygen. - stable but with a worse cough - check CXR. 5. CAD/PVD - cont. Plavix - she sees Dr. Wynn. AIDEN EVANS MD 08/13/167: Past Medical History Current Medications Home Meds Active Scripts Nystatin (Nystatin) 50,000,000 Unit Powder.ea., 1 APPLIC TOP TID for 30 Days, # 5 TUBE Prov:LEAH WRIGHT MD 04/26/16 Budesonide (Pulmicort Flexhaler 180) 120 Puff/Inhaler Inha, 1 PUFF ORAL INH BID , #1 INHALER Prov:JUDY MUHAMMAD MD 12/25/15 Reported Medications Clopidogrel Bisulfate (Clopidogrel) 75 Mg Tablet, 75 MG PO DAILY 04/04/15 Pantoprazole Sodium (Pantoprazole Sodium) 40 Mg Tablet., 40 MG PO ACB 01/26/14 Levothyroxine Sodium (Levothroid) 25 Mcg Tablet, 25 MCG PO ACB 05/03/12 Allergies: Coded Allergies: heparin (Verified Allergy, Severe, THROMBOCYTOPENIA, 08/13/16) aspirin (Verified Allergy, Unknown, 04/03/16) bupropion (Verified Allergy, Unknown, 04/03/16) Assessment & Plan Assessment 08/13/2016-I reviewed this chart, the patient history, and the CLINICAL SCIENTIST's/PA's documented findings as above. We discussed and formulated the assessment and plan as above with the additions below.-Dr. Evans Patient states that she is feeling well. She has urinary frequency from Lasix. She denies any shortness of breath but is on chronic oxygen. She denies any pain. She is eating okay. She states that she will not go back to a usp unit. She states she cannot afford it. On exam the patient is alert and oriented and in no acute distress. She is morbidly obese. HEENT reveals sclerae to be anicteric and oropharynx is moist. She is wearing oxygen. Neck is supple. Chest is clear to auscultation. Cardiovascular reveals a regular rate and rhythm. She does not have telemetry on because she refuses an IV. Abdomen is soft, obese, nondistended and nontender. Extremities reveal chronic venous insufficiency changes with mild edema. Consult case management to help with safe discharge planning. Wound and skin nurse is to see the patient tomorrow. Continue to monitor Accu-Cheks and increase insulin as recommended by Dr. Whelan. INR is subtherapeutic. Uncertain if patient is taking correctly. She is on Coumadin for A. fib and history of recent DVT in April 2016. Consult PT and OT. Consider inpatient rehabilitation if patient qualifies and if she is agreeable. JEROME BAIN APRN Aug 13, 2016 12:01 AIDEN EVANS MD Aug 13, 2016 21:47
[2016-08-13 13:40] LABS: ALBUMIN 3.8 G/DL (3.5-5.0); ALBUMIN/GLOBULIN RATIO 1.2 RATIO (1.1-2.2); ALKALINE PHOSPHATASE 113 U/L (38-126); ALT (SGPT) 35 U/L (9-52); ANION GAP 9 MEQ/L (5-15); AST (SGOT) 21 U/L (14-36); BUN/CREATININE RATIO 17 RATIO (6-26); CALCIUM 9.7 MG/DL (8.4-10.2); CHLORIDE 96 MEQ/L (98-107); CO2 - CARBON DIOXIDE 37 MEQ/L (22-30); CREATININE 1.6 MG/DL (0.7-1.2); GLOMERULAR FILTRATION RATE 33; GLUCOSE 329 MG/DL (65-110); SODIUM 142 MEQ/L (134-144)
--- NOTE | 2016-08-13 13:40 | NUR ---
COUMADIN CONSULT (Initial): Dx: ATRIAL FIB AND HX OF DVT Baseline INR = 1.14. Will give Warfarin 5mg today. (PATIENT'S HOME DOSE IS 4MG DAILY) Will continue to monitor and make adjustments accordingly. Thank you.
[2016-08-13] MEDS ORDERED: WARFARIN 5 MG TABLET PO ONE (13:45)
[2016-08-13] MEDS ORDERED: INFLUENZA VAC. ADMIN CHARGE INJ ONE (14:00)
[2016-08-13] MEDS ORDERED: INFLUENZA VAC QIV 2016-17 (Fluarix*)(>=3yo) 0.5ml IM ONE (14:00)
[2016-08-13] MEDS: INSULIN LISPRO 100 UNIT/ML SQ SCH ×2 (14:07→17:56)
[2016-08-13] MEDS ORDERED: ALBUTEROL INH.SOLN. 2.5mg/3ml (0.083%) Neb. AEROSOL PRN (15:00)
[2016-08-13] MEDS: FUROSEMIDE 40 MG TABLET PO SCH (15:00)
--- NOTE | 2016-08-13 16:42 | WOUNDPN ---
Nurse to Nurse Wound Consult Asked to see pt, when arriving pt is trying to roll on her side to assist with ablility to view. However, pt started having a bowel movement so we will return tomorrow. ANDREW CEDENO RN Aug 13, 2016 16:42
--- NOTE | 2016-08-13 18:16 | NUR ---
ADMISSION NOTE PT IS BROUGHT TO UNIT IN A W/C BY SIGNIFICANT OTHER A DIRECT ADMIT FROM DR. DOLL AFTER STOPPING IN ADMISSIONS. PT HAS OWN W/C, SOX, SWEAT PANTS, T-SHIRT, [place] HOUSE COAT, EMPTY OXYGEN TANK AND GLASSES WITH HER AT TIME OF ARRIVAL. PT HAS NO PURSE OR DENTURES WITH HER AT THIS TIME. PT IS STABLE AND PT IS V. WET WITH URINE AND THERE ARE SEVERAL LAYERS OF SOAKED TOWELS AND PLASTIC TRASH BAGS IN W/C. PT IS CHANGED INTO A GOWN AND SKIN IS EXAMINED THERE ARE THREE PURPLE/RED AREAS THAT ARE HARDENED AND TENDER ON PALPATION ONE HAS A TINY [id number] OPEN SPOT. PT ENTIRE BACKSIDE FROM MID BUTTOCKS TO LOWER MID THIGHS IS REDDENED AND APPEARS RAW. PT IS GROSSLY INCONTINENT AND IS PLACED IN A BRIEF AND ON TWO CHUCKS PADS. PT IS DEMANDING FOOD AND TROWING THINGS IN ROOM. PT STATES IF WE DON'T FEED HER SHE WILL "PISS ALL OVER THE FLOOR" WHICH SHE DOES IN SQUIRTS. IT IS EXPLAINED THAT SHE MUST BE ENTERED A PT AND WE MUST HAVE ORDERS FOR PT TO RECEIVE A TRAY. PT MAKES A FEW MORE COMMENTS AND HAS NOT BEEN PHYSICALLY AGGRESSIVE SINCE THIS TIME.
--- NOTE | 2016-08-13 18:28 | NUR ---
SHIFT SUMMARY PT IS A&O X3 AT THIS TIME. PT HAS BEEN GROSSLY INCONTINENT OF BOTH BOWEL AND BLADDER FOR THIS SHIFT. PT IS ON A ADA 2200 KCAL DIET. PT IS ABLE TO USE CALL LIGHT TO MAKE NEEDS KNOWN. PT IS UP WITH 2MAX A PIVOT TO COMMODE OR W/C. PT HAS EATEN 100% OF MEALS WITHOUT ASSISTANCE. PT HAS HAD NO C/O PAIN. PT IS ON INSULIN HER BGM ON ARRIVAL WAS 298. PT STATED THIS WAS HER NORMAL. CALLED DR. HAM TO GET SLIDING SCALE AND SCHEDULED BGM'S. WILL CONTINUE TO MONITOR PT TILL END OF SHIFT REPORT.
[2016-08-13 20:52] VITALS: BP 132/49; PULSE 56; RESP 16; TEMP 98.2; O2SAT 99
[2016-08-13 20:54] VITALS: RESP 16
[2016-08-13] MEDS: MELATONIN 5 MG TABLET PO SCH (21:17)
[2016-08-13] MEDS: INSULIN LISPRO 100 UNIT/ML SQ PRN (21:17)
[2016-08-13] MEDS: DOCUSATE SODIUM 100 MG CAPSULE PO SCH (21:18)
[2016-08-13] MEDS: SIMVASTATIN 40 MG TABLET PO SCH (21:18)
[2016-08-14] VITALS (7 sets, daily range): BP systolic 122–161; BP diastolic 55–71; PULSE 49–52; RESP 16–22; TEMP 97–97.7; O2SAT 94–98
[2016-08-14] MEDS: INSULIN DETEMIR 100 UNIT/ML SQ SCH ×2 (00:48→22:08)
--- NOTE | 2016-08-14 05:38 | NUR ---
SHIFT SUMMARY PATIENT HAS BEEN ALERT AND ORIENTED THIS SHIFT. VITAL SIGNS HAVE BEEN STABLE ON 4L NC, THOUGH PATIENT HAS BEEN BRADYCARDIC THIS MORNING. PATIENT IN FREQUENTLY INCONTINENT OF URINE, AND IS WEARING A BRIEF. PATIENT IS ABLE TO REPORT INCONTINENCE. PATIENT HAS BEEN BELLIGERENT AND REFUSED CARES AT TIMES. PATIENT IS A TURN WITH ASSIST X2, BUT HAS NOT BEEN OUT OF BED THIS SHIFT. REPORT STATED THAT SHE CAN STAND AND PIVOT WITH ASSIST X2. PATIENT HAS ONLY REPORTED PAIN WITH TURNS, BUT STATES THAT IT IS RELIEVED WHEN SHE STOPS ACTIVITY. WILL CONTINUE TO MONITOR.
[2016-08-14 06:23] LABS: BASOPHILS % (AUTO) 0.2 % (0-2); EOSINOPHILS # (AUTO) 0.4 T/MM3 (0-0.5); EOSINOPHILS % (AUTO) 4.1 % (0-4); HCT - HEMATOCRIT 30.5 % (36-46); HGB - HEMOGLOBIN 9.2 GM/DL (12-16); IMMATURE GRANULOCYTE # (AUTO) 0.03 T/MM3 (0.00-0.03); IMMATURE GRANULOCYTE % (AUTO) 0.3 % (0.0-0.5); LYMPHOCYTES % (AUTO) 19.1 % (23-45); MEAN CORPUSCULAR HGB 28.8 UUG (26-34); MEAN CORPUSCULAR HGB CONC(MCHC 30.2 GM/DL (31-37); MEAN CORPUSCULAR VOLUME 95.6 UM3 (80-100); MEAN PLATELET VOLUME 10.1 UM3 (9.4-12.4); MONOCYTES # (AUTO) 0.7 T/MM3 (0-0.8); MONOCYTES % (AUTO) 6.7 % (0-9.0); NEUTROPHILS #(AUTO)-ABSOLUTE 7.3 T/MM3 (1.8-7.7); NEUTROPHILS % (AUTO) 69.6 % (33-66); RED BLOOD COUNT 3.19 M/MM3 (4.00-5.20); WBC - WHITE BLOOD COUNT 10.6 T/MM3 (4.5-11.0)
[2016-08-14 06:26] LABS: INR 1.14 (0.76-1.04); PROTHROMBIN TIME 12.4 SEC (9.31-12.49)
[2016-08-14 06:33] LABS: ALBUMIN 3.4 G/DL (3.5-5.0); ANION GAP 7 MEQ/L (5-15); BUN/CREATININE RATIO 17 RATIO (6-26); CALCIUM 9.4 MG/DL (8.4-10.2); CHLORIDE 98 MEQ/L (98-107); CO2 - CARBON DIOXIDE 35 MEQ/L (22-30); CREATININE 1.8 MG/DL (0.7-1.2); GLOMERULAR FILTRATION RATE 28; GLUCOSE 254 MG/DL (65-110); MAGNESIUM 2.1 MG/DL (1.6-2.3); PHOSPHORUS 4.8 MG/DL (2.5-4.5); POTASSIUM 4.1 MEQ/L (3.6-5); SODIUM 140 MEQ/L (134-144)
[2016-08-14] MEDS: LEVOTHYROXINE 25 MCG TABLET PO SCH (06:36)
[2016-08-14] MEDS: PANTOPRAZOLE 40 MG TABLET PO SCH (06:36)
[2016-08-14] MEDS: DOCUSATE SODIUM 100 MG CAPSULE PO SCH ×2 (07:42→22:09)
[2016-08-14] MEDS: AMLODIPINE 5 MG TABLET PO SCH (07:42)
[2016-08-14] MEDS: INSULIN LISPRO 100 UNIT/ML SQ SCH ×3 (07:43→17:15)
[2016-08-14] MEDS: FUROSEMIDE 40 MG TABLET PO SCH ×2 (07:43→15:00)
[2016-08-14] MEDS ORDERED: CLOPIDOGREL 75 MG TABLET PO SCH (09:00)
--- NOTE | 2016-08-14 09:39 | NUR ---
JORDYN LARSEN IS 3 Addendum: 08/14/16 at 0940 by KARLO ISAACS SW Amended: Links added.
[2016-08-14] MEDS: BUDESONIDE INH.SOLN. 0.5mg/2ml NEB AEROSOL SCH (10:07)
--- NOTE | 2016-08-14 10:29 | NUR ---
COUMADIN CONSULT (Recurring): 65 y.o. female with history of a.fib and DVT and chronic anticoagulation with Warfarin. Pharmacy consulted to manage Warfarin per protocol. Home dose=4 mg po daily. Date INR dose 08/13 1.14 5 mg 08/14 1.14 plan: 5 mg INR is subtherapeutic. Will give Warfarin 5 mg today. Valerie MORAN ordered Lovenox while INR is subtherapeutic. No significant drug-drug interactions noted. Pharmacy will continue to monitor & make adjustments accordingly. Thank you. Lucero Kowalski [facility]
[2016-08-14] MEDS ORDERED: ENOXAPARIN 150 MG/ML INJECTION SQ SCH (11:00)
[2016-08-14] MEDS: INSULIN LISPRO 100 UNIT/ML SQ PRN ×3 (11:28→22:08)
[2016-08-14] MEDS ORDERED: WARFARIN 5 MG TABLET PO SCH (12:00)
--- NOTE | 2016-08-14 14:09 | PNPDOC ---
JEROME BAIN [employer] 08/14/16 1358: Subjective Date DATE: 08/14/16 TIME: 13:47 Subjective Lilly was dozing off in her recliner. She easily awakened, but didn't remember meeting me yesterday. She states that she feels fine, no problems breathing, no abdominal or chest pain. She rested fairly well. We reviewed labs and medications - however patient doesn't know what her meds are or what her labs usually run. Objective Vital Signs Vital signs Vital Signs Date Time Temp Pulse Resp B/P Pulse Ox O2 Delivery O2 Flow Rate FiO2 08/14/16 12:35 97.7 51 22 122/71 94 Nasal Cannula 3.00 Height (Feet): 5 Height (Inches): 2.00 Weight (Kilograms): 136.000 General General Appearance: Alert, Obese, Well Nourished, Well Developed, No Acute Distress Eyes (Brief) Eyes: FOUND: PERRL, NOT FOUND: scleral icterus ENMT (Brief) ENMT: FOUND: mucosa moist, NOT FOUND: pharnyx erythema Respiratory (Brief) Respiratory: FOUND: clear all morales, equal bilaterally Comments diminished Cardiovascular (Brief) Cardiac: FOUND: regular rate, regular rhythm Abdomen (Brief) Abdominal: FOUND: BS normo active x4, soft, NOT FOUND: distended, tender Extremities (Brief) Extremity : Side: Bilateral Extremity: leg Extremity Finding: FOUND: edema Musculoskeletal (Brief) Musculoskeletal: NOT FOUND: deformity, tenderness Integumentary (Brief) Integumentary: FOUND: dry, pink, warm Psychiatric (Brief) Psychiatric: FOUND: alert, attentive, normal affect, oriented Laboratory Laboratory Laboratory Tests 08/13/16 12:58 08/14/16 05:44 Laboratory Tests 08/13/16 12:58 08/14/16 05:44 Microbiology Microbiology Microbiology Date/Time Source Procedure Growth Status 08/13/16 13:03 Peripheral/Iv Start Blood Culture - Preliminary NO GROWTH AFTER 24 HOURS Resulted 08/13/16 12:58 Peripheral/Iv Start Blood Culture - Preliminary NO GROWTH AFTER 24 HOURS Resulted Assessment & Plan Problems: (1) Self-care deficit for hygiene (2) Skin breakdown (3) Incontinence Status: Chronic Qualifiers: Incontinence type: urinary (4) COPD (chronic obstructive pulmonary disease) Status: Chronic (5) Morbid obesity with BMI of 50.0-59.9, adult (6) CAD (coronary artery disease) Status: Chronic (7) Chronic kidney disease, stage III (moderate) Status: Chronic (8) Hypothyroidism Status: Chronic (9) HTN (hypertension) Status: Chronic (10) Type II diabetes mellitus, uncontrolled Status: Chronic (11) PVD (peripheral vascular disease) Status: Chronic (12) Atrial fibrillation Onset Date: ~ 04/2016 Status: Chronic (13) Right leg DVT Onset Date: ~ 04/2016 (14) GERD (gastroesophageal reflux disease) Status: Chronic Plan/Intensity of Service Skin breakdown with urinary incontinence - wound care eval. pending Anemia - records from [facility] reviewed. In April,, iron studies were normal (Fe 92, TIBC 407, Fe sat 23, transferrin 273), B12 was normal at 621 and folate was normal at 16.5. She was evaluated by heme/onc at that time and had a full hematologic w/u done. IgM was low at 26. Hep A,B,C were neg. A1c was 6.9% in Apr. Will repeat iron, B12, and folate studies since her hgb is lower now than it was in Apr 2016 (11.5). CKD - Cr in Apr 2016 was 1.77. Renal sono pending. I spoke with cardiology - pt has a hx of not taking her medications as Rx. This was seen with her subtherapeutic INR. Therapeutic Lovenox was given today. She was also supposed to be on amiodarone, but this was not listed on her medication list and pt was unable to speak as to why she wasn't on it. EKG shows sinus rito with a rate of 58. Cardiology recommends not to restart amio at this time. I discussed care with Dr. Evans. We are quite worried about her worsening anemia for no apparent cause. This combined with the fact that we are going to fully anticoagulate her is concerning for safe discharge back home today. SOB is pending. Generalized weakness - OT recommends HH. PT eval pending. DVT Prophylaxis: Lovenox, Coumadin Code Status Full Code Hospital Course Summary Disclaimer The hospital course summary below is not to be considered part of the above Progress Note. Hospital Course Summary 08/13/16 Admit, observation status under the hospitalist service. 1. Skin breakdown with open lesions, secondary to urinary incontinence. - Provide good skin care. Consult the wound nurse for recommendations - Self deficits for hygiene; consult Physical Security Specialist. - Assess septic w/u given erythemic appearance, concerning for infection. 2. DM2 - monitor sugars. She had A1c checked today at Dr. Segovia's office - results pending. - resume insulin schedule as determined by Dr. Segovia. 3. A-fib - cont. Coumadin per pharm. protocol - also had DVT to right femoral vein in Apr, 2016. 4. Hx of COPD - cont. inhalers and oxygen. - stable but with a worse cough - check CXR. 5. CAD/PVD - cont. Plavix - she sees Dr. Wynn. 08/14/16 Skin breakdown with urinary incontinence - wound care eval. pending Anemia - records from [facility] reviewed. In April,, iron studies were normal (Fe 92, TIBC 407, Fe sat 23, transferrin 273), B12 was normal at 621 and folate was normal at 16.5. She was evaluated by heme/onc at that time and had a full hematologic w/u done. IgM was low at 26. Hep A,B,C were neg. A1c was 6.9% in Apr. Will repeat iron, B12, and folate studies since her hgb is lower now than it was in Apr 2016 (11.5). CKD - Cr in Apr 2016 was 1.77. Renal sono pending. I spoke with cardiology - pt has a hx of not taking her medications as Rx. This was seen with her subtherapeutic INR. Therapeutic Lovenox was given today. She was also supposed to be on amiodarone, but this was not listed on her medication list and pt was unable to speak as to why she wasn't on it. EKG shows sinus rito with a rate of 58. Cardiology recommends not to restart amio at this time. I discussed care with Dr. Evans. We are quite worried about her worsening anemia for no apparent cause. This combined with the fact that we are going to fully anticoagulate her is concerning for safe discharge back home today. SOB is pending. Generalized weakness - OT recommends HH. PT eval pending. AIDEN EVANS MD 08/14/16 8869: Assessment & Plan Assessment 08/14/2016-I reviewed this chart, the patient history, and the [employer]'s/PA's documented findings as above. We discussed and formulated the assessment and plan as above with the additions below.-Dr. Evans The patient is seen in her room this afternoon. She complains of occasional pain in her legs if she sits on a toilet. She denies any chest pain or abdominal pain. She denies any shortness of breath that is requiring 3-4 L of oxygen. She is eating and drinking okay. She has had problems with nosebleeds in the past. She does not appear to be very aware of her past medical problems or her medications. She did not remember that she had been prescribed blood thinners and did not appear to have stopped them because of any bleeding issues. She denies any vomiting of blood or bloody stools. She denies any black stools. She does not recall being anemic. When she was last in the hospital at [facility] in April her hemoglobin was 11.5. The patient does have history of DVT in April 2016 as well as paroxysmal atrial fibrillation and for both of these reasons she was prescribed Coumadin. She is also supposed to be on Plavix for coronary artery disease with history of stent. We are resuming her anticoagulation here in the hospital but with a drop in her hemoglobin from April to now, and from yesterday to today. I feel we need to watch her hemoglobin closely while reinitiating anticoagulation and check a CBC tomorrow and Hemoccult with her next stool. She is also had a bump in her creatinine from 1.6 up to 1.8. Renal sonogram showed no hydronephrosis. On exam she is alert and in no acute distress. Chest is clear to auscultation. Cardiovascular reveals a regular rate and rhythm. Abdomen is obese, soft nontender with positive bowel sounds. Extremities reveal erythema of the posterior thighs with pendulunt skin. No obvious abscesses are felt but she does have tenderness. She does have some mild skin breakdown over the left buttock. I would like to change to inpatient status. We'll await recommendations from case fitter. I do not feel the patient is stable for discharge to home regarding her anemia, reinitiation of anticoagulation, and with her little understanding of her medical conditions and medications. Will reevaluate tomorrow. Possible discharge tomorrow if lab work is stable and Hemoccult is negative. If Hemoccult is positive may need further workup as well as decision on whether to continue anticoagulation and/or Plavix. JEROME BAIN APRN Aug 14, 2016 13:58 AIDEN EVANS MD Aug 14, 2016 17:09
--- NOTE | 2016-08-14 14:41 | DI ---
Indication: ITS.REASON: mild lauren on ckd PROCEDURE: US RENAL: Encounter: Initial Comparison: Renal ultrasound dated April 06, [address] angiogram dated January 25, 2013 Technique: Grayscale and color Doppler sonographic imaging of both kidneys was performed. FINDINGS: Limited visualization of the left kidney due to patient body habitus and acoustic windows. Both kidneys are present with normal cortical thickness. No gross hydronephrosis. The right kidney measures 11.7 cm in length, and the left kidney measures 11.8 cm in length. Bilateral renal cysts as seen on the prior CT. The left-sided cyst has enlarged, now measuring up to 3 cm in diameter. IMPRESSION: No hydronephrosis. .
--- NOTE | 2016-08-14 15:36 | NUR ---
JORDYN THIS WORKER, ALONG WITH LIANNE, VISITED PT IN ROOM. THIS WORKER INTRODUCED SELF AND ROLE OF CASE MANAGEMENT. PT STATED SHE LIVES WITH HER SIGNIFICANT OTHER, IRMA, IN THEIR HOME IN [place]. PT STATED IRMA VISITED HER YESTERDAY IN THE HOSPITAL. PT REPORTED SHE HAS FAMILY SUPPORT NEAR [place] AND A MOTHER THAT LIVES IN [place]. PT STATED SHE HAS A WHEEL CHAIR, WALKER, DIABETIC SUPPLIES, PORTABLE OXYGEN AT HOME. SHE DENIED NEEDING ANYTHING AND HAS EVERYTHING AT HOME. THIS PT STATED SHE AND IRMA HAVE FINANCIAL SUPPORT VIA SOCIAL SECURITY. THIS WORKER INQUIRED ABOUT HOME HEALTH, PT STATED SHE HAS A NURSE THAT COMES TO THE HOUSE AND WANTS TO KEEP HER. THIS WORKER ADDRESSED THE CONCERNS OF IRMA NOT BEING ABLE TO TAKE CARE OF HER NEEDS PROPERLY. PT STATED "HE DOES A 'GREAT JOB'" AND WAS VERY UPSET HEARING THIS. PT STATED SHE WOULD LIKE TO KEEP IRMA THE CAREGIVER. PT STATED SHE DID HAVE AN AID VIA HOME HEALTH AND FIRED THE AID TO KEEP IRMA THE CAREGIVER. PT REPORTED IRMA HELPS HER WITH HER ROUTINE, WHICH INCLUDES: BRUSHING HER HAIR, GIVES HER A BATH, AND DRESSES HER. THIS WORKER ADDRESSED THE CONCERN OF THE PT'S HYGIENE CONDITION (USING GARBAGE BAG AND TOWELS INCONTINENCE SUPPLIES). PT BECAME IRRITATED AT THIS TIME AND STATED "IT IS TOO EXPENSIVE TO BUY". PT STATED IRMA "LAYERS GARBAGE BAGS WITH TOWELS" IN WHEEL CHAIR AND BED. THIS WORKER INQUIRED ABOUT MEDICAID SUPPLYING HER WITH CONTINENCE SUPPLIES. THIS WORKER ASKED FOR PERMISSION TO CONTACT SUPPLY COMPANY ABOUT CONTINENCE SUPPLIES, PT WAS AGREEABLE. PT STATED IRMA OR A FRIEND WILL PICK HER UP ONCE SHE DISCHARGES AND WILL BRING PORTABLE OXYGEN TANK FROM HOME. THIS PT WAS GIVEN THIS WORKER'S CONTACT INFORMATION AND ENCOURAGED TO CALL WITH ANY QUESTIONS/NEEDS. PT EXPRESSED NO CONCERNS OR NEEDS. Addendum: 08/14/16 at 1602 by ANDREW LAZO Amended: Links added. Addendum: 08/14/16 at 1642 by KARLO LAZO Reviewed above note from Missy, and agree with it. Additionally, DPOA paperwork was discussed with pt, but she declined this.
--- NOTE | 2016-08-14 18:27 | NUR ---
SHIFT SUMMARY PT IS A&O X3 AT THIS TIME. PT IS STILL GROSSLY INCONTINENT OF BLADDER. PT DID USE COMMODE ONCE TODAY. BARRIER CREAM IS BEING APPLIED TO THE EXCORIATED AREA OF BOTTOM (LOWER HALF OF BOTTOM TO MID UPPER THIGHS) THE THREE SPOTS DOCUMENTED IN THE ASSESSMENT ARE UNCHANGED AT LAST BRIEF CHANGE. PT HAS STATED REPEATEDLY THAT SHE DOESN'T CARE ABOUT IMPROVEMENT BUT WANTS MORE FOOD AND A CERDA SO SHE WONT BE BOTHERED. PT THREW HER SPOON AT STAFF WHEN A SECOND DINNER TRAY WAS NOT GIVEN TO HER SHE HAD CALLED [employer] COMPLAINED BUT HAD FINISHED THE TRAY AND WAS OVER BOTH CARB COUNT AND CALORIES FOR THE DAY. PT AT THIS TIME STATED SHE WOULD DEFECATE IN HER BRIEF IF SHE DIDN'T GET HER SECOND TRAY. PT BGM HAS STAYED IN THE UPPER 200'S WITH SLIDING SCALE HUMALOG. PT IS MEDICATION COMPLIANT AND WILL ALLOW CARES IF SHE HAS EATEN. PT REMAINS MAX 2 ASSIST AND PIVOTS TO W/C, COMMODE, AND BED. PT IS ON 4L/NC O2 FOR THIS SHIFT. WILL CONTINUE TO MONITOR PT TILL END OF SHIFT REPORT.
[2016-08-14 19:13] LABS: BASOPHILS % (AUTO) 0.4 % (0-2); EOSINOPHILS # (AUTO) 0.5 T/MM3 (0-0.5); EOSINOPHILS % (AUTO) 4.6 % (0-4); HCT - HEMATOCRIT 31.5 % (36-46); HGB - HEMOGLOBIN 9.6 GM/DL (12-16); IMMATURE GRANULOCYTE # (AUTO) 0.03 T/MM3 (0.00-0.03); IMMATURE GRANULOCYTE % (AUTO) 0.3 % (0.0-0.5); LYMPHOCYTES # (AUTO) 1.7 T/MM3 (1-4.8); LYMPHOCYTES % (AUTO) 17.4 % (23-45); MEAN CORPUSCULAR HGB 29.1 UUG (26-34); MEAN CORPUSCULAR HGB CONC(MCHC 30.5 GM/DL (31-37); MEAN CORPUSCULAR VOLUME 95.5 UM3 (80-100); MEAN PLATELET VOLUME 9.8 UM3 (9.4-12.4); MONOCYTES # (AUTO) 0.6 T/MM3 (0-0.8); MONOCYTES % (AUTO) 6.3 % (0-9.0); NEUTROPHILS #(AUTO)-ABSOLUTE 7.1 T/MM3 (1.8-7.7)
[2016-08-14] MEDS: SIMVASTATIN 40 MG TABLET PO SCH (22:08)
[2016-08-14] MEDS: MELATONIN 5 MG TABLET PO SCH (22:08)
[2016-08-15] VITALS (9 sets, daily range): BP systolic 127–149; BP diastolic 48–78; PULSE 50–55; RESP 18–22; TEMP 97; O2SAT 87–97
[2016-08-15 02:34] LABS: FERRITIN 83.8 NG/ML (11-264)
[2016-08-15 03:05] LABS: FOLATE 12.1 NG/ML (2.76-20)
--- NOTE | 2016-08-15 05:16 | NUR ---
SHIFT SUMMARY PATIENT HAS BEEN ALERT AND ORIENTED X3 THIS SHIFT. VITAL SIGNS HAVE BEEN STABLE ON 4L NC THIS SHIFT. PATIENT HAS BEEN INCONTINENT MULTIPLE TIMES THIS SHIFT, BUT CALLS WHEN SHE IS WET. PATIENT TRANSFERS BY STAND AND PIVOT WITH AN ASSIST X2. PATIENT STAYED IN CHAIR MOST OF THE NIGHT, AND REFUSED TO RETURN TO BED WHEN OFFERED. PATIENT CONTINUES TO BE BELLIGERENT AT TIMES. WILL CONTINUE TO MONITOR.
[2016-08-15 05:19] LABS: BASOPHILS % (AUTO) 0.2 % (0-2); EOSINOPHILS # (AUTO) 0.5 T/MM3 (0-0.5); EOSINOPHILS % (AUTO) 5.1 % (0-4); HCT - HEMATOCRIT 31.5 % (36-46); HGB - HEMOGLOBIN 9.6 GM/DL (12-16); IMMATURE GRANULOCYTE # (AUTO) 0.03 T/MM3 (0.00-0.03); IMMATURE GRANULOCYTE % (AUTO) 0.3 % (0.0-0.5); LYMPHOCYTES # (AUTO) 1.9 T/MM3 (1-4.8); LYMPHOCYTES % (AUTO) 19.9 % (23-45); MEAN CORPUSCULAR HGB 29.1 UUG (26-34); MEAN CORPUSCULAR HGB CONC(MCHC 30.5 GM/DL (31-37); MEAN CORPUSCULAR VOLUME 95.5 UM3 (80-100); MEAN PLATELET VOLUME 10.1 UM3 (9.4-12.4); MONOCYTES # (AUTO) 0.7 T/MM3 (0-0.8); MONOCYTES % (AUTO) 6.9 % (0-9.0); NEUTROPHILS #(AUTO)-ABSOLUTE 6.5 T/MM3 (1.8-7.7); NEUTROPHILS % (AUTO) 67.6 % (33-66); WBC - WHITE BLOOD COUNT 9.6 T/MM3 (4.5-11.0)
[2016-08-15 05:29] LABS: INR 1.13 (0.76-1.04); PROTHROMBIN TIME 12.3 SEC (9.31-12.49)
[2016-08-15 05:37] LABS: ANION GAP 10 MEQ/L (5-15); BUN/CREATININE RATIO 18 RATIO (6-26); CALCIUM 9.4 MG/DL (8.4-10.2); CHLORIDE 96 MEQ/L (98-107); CO2 - CARBON DIOXIDE 37 MEQ/L (22-30); CREATININE 1.9 MG/DL (0.7-1.2); GLOMERULAR FILTRATION RATE 27; GLUCOSE 205 MG/DL (65-110); PHOSPHORUS 5.3 MG/DL (2.5-4.5); POTASSIUM 3.8 MEQ/L (3.6-5); SODIUM 143 MEQ/L (134-144)
[2016-08-15] MEDS: PANTOPRAZOLE 40 MG TABLET PO SCH (06:31)
[2016-08-15] MEDS: LEVOTHYROXINE 25 MCG TABLET PO SCH (06:31)
[2016-08-15] MEDS: INSULIN LISPRO 100 UNIT/ML SQ PRN ×4 (06:32→20:25)
[2016-08-15] MEDS: INSULIN LISPRO 100 UNIT/ML SQ SCH ×3 (08:15→17:24)
[2016-08-15] MEDS: AMLODIPINE 5 MG TABLET PO SCH (08:16)
[2016-08-15] MEDS: FUROSEMIDE 40 MG TABLET PO SCH (08:16)
[2016-08-15] MEDS: DOCUSATE SODIUM 100 MG CAPSULE PO SCH ×2 (08:16→21:05)
[2016-08-15] MEDS: BUDESONIDE INH.SOLN. 0.5mg/2ml NEB AEROSOL SCH (10:01)
--- NOTE | 2016-08-15 10:01 | NUR ---
Wound RN Missy Razo RN here to see pt. No New orders received at this time.
--- NOTE | 2016-08-15 10:41 | WOUNDPN ---
Nurse to Nurse Wound Consult At this time pt has a small scab on the right postier thigh. It appears to be a shear wound. It is not a pressure injury. Covered with mepilex and encouraged pt to sit in the chair and keep a pillow under that leg so that the weight is off of the back of her thigh. ANDREW CEDENO RN Aug 15, 2016 10:39
--- NOTE | 2016-08-15 11:14 | NUR ---
CM THIS WORKER SPOKE WITH MILTON AT [facility], CONCERNING PT'S INCONTINENCE ISSUES. MILTON STATED HE WILL PROVIDE PT WITH INCONTINENCE SUPPLIES IN PT'S ROOM ON THIS DATE.
--- NOTE | 2016-08-15 11:37 | NUR ---
CM SPOKE WITH PT, RE: POSSIBILITY OF DC TODAY BUT THIS IS NOT FOR SURE. SHE SAID SHE FEELS SHE IS READY TO DC. SHE HAD NO QUESTIONS/NEEDS FOR THIS WORKER. CALLED AND SPOKE WITH [facility] RN ARIK. UPDATED HER ON POSSIBLE DC SOON. SHE SAID THEY WILL RESUME SERVICES. SHE SAID THE PT CHOSES TO NOT DO MUCH FOR HERSELF AT HOME AND RELIES ON CAREGIVER IRMA. SHE SAID SHE THINKS IRMA IS ABLE TO PROVIDE CARE IF HE IS SPECIFICALLY TAUGHT. SHE SAID THE HOUSE ENVIRONMENT IS OK, NO CONCERNS. SHE SAID IRMA DID GO BUY A BEDSIDE COMMODE WITH A BUCKET. THIS WORKER UPDATED HER THAT PT WILL RECEIVE INCONT. SUPPLIES THROUGH [facility]. SHE ASKED TO BE KEPT UPDATED OF WHEN PT DC'S.
[2016-08-15] MEDS ORDERED: WARFARIN 5 MG TABLET PO SCH (12:00)
[2016-08-15] MEDS ORDERED: WARFARIN 6 MG TABLET PO SCH (12:00)
--- NOTE | 2016-08-15 12:11 | NUR ---
COUMADIN CONSULT (Recurring): 65 y.o. female with history of a.fib and DVT and chronic anticoagulation with Warfarin. Pharmacy consulted to manage Warfarin per protocol. Home dose=4 mg po daily. Date INR dose 08/13 1.14 5 mg 08/14 1.14 5 mg 08/15 1.13 plan: 6 mg monitor platelets date platelet count 08/14 226 T/mm3 <-- Lovenox dose given 08/15 231 T/mm3 INR is subtherapeutic. Will give Warfarin 6 mg today. INR is unchanged for past 3 days. Increased the Warfarin dose today. No significant drug-drug interactions noted. However, patient does have a recent outpatient RX history of Amiodarone (last fill 07/29/16) but is not currently taking Amiodarone at [facility]. Amiodarone interacts with Warfarin and increases INR. The DC of Amiodarone may result in her requiring a higher Warfarin dose. Patient has a history of RASHID and 08/14/16 she received a single dose of Lovenox. Platelets are being monitored for signs of RASHID. Pharmacy will continue to monitor & make adjustments accordingly. Thank you. Lucero Kowalski [facility]
--- NOTE | 2016-08-15 16:27 | NUR ---
CM ANTICIPATED DC SAT. ORDERS FOR HOME HEALTH (PROGRESSIVE) SIGNED AND FAXED TO [facility].
--- NOTE | 2016-08-15 18:34 | NUR ---
SHIFT SUMMARY ALERT AND ORIENTED X3. O2 3L PER NC. UP TO RECLINER FOR MOST OF THE AFTERNOON. PATIENT TRANSFERS WITH ASSIST X2 WITH GAIT BELT AND WALKER. VITAL SIGNS STABLE. DENIES CHEST PAIN. TAKES MEDS WHOLE. PATIENT ENCOURAGED TO USE INCENTIVE SPIROMETER. RN INFORMED PATIENT TO CALL IF OTHER NEEDS ARISE. CURRENTLY UP TO RECLINER. CALL LIGHT WITHIN REACH. CHAIR ALARM ACTIVATED.
[2016-08-15] MEDS: MELATONIN 5 MG TABLET PO SCH (21:05)
[2016-08-15] MEDS: SIMVASTATIN 40 MG TABLET PO SCH (21:05)
[2016-08-15] MEDS: INSULIN DETEMIR 100 UNIT/ML SQ SCH (22:19)
--- NOTE | 2016-08-15 23:54 | PNPDOC ---
Subjective Date DATE: 08/15/16 TIME: 23:38 Subjective Patient states that she is feeling fairly well today. She was seen this afternoon accompanied by her significant other. She denies any shortness of breath. She states she is eating okay. She is not had any black stools or bloody stools. She continues to have incontinence of urine. The wound and skin nurse did see a shear wound on her posterior thigh and covered it with Mepilex. The patient denies any chest pain. Objective Vital Signs Vital signs Vital Signs Date Time Temp Pulse Resp B/P Pulse Ox O2 Delivery O2 Flow Rate FiO2 08/15/16 20:02 97.0 55 18 144/64 97 Nasal Cannula 3.00 GEN-alert, oriented, no acute distress HEENT-sclera anicteric, oropharynx is moist NECK-supple CV-regular rate and rhythm CHEST-clear to auscultation bilaterally ABD-soft, obese, nontender, nondistended -no Lewis EXT-chronic +1 with the lower extremity edema with mild erythema. She does not appear to have cellulitis NEURO-no focal deficits SKIN-warm and dry, erythema of the anterior shins from chronic edema Height (Feet): 5 Height (Inches): 2.00 Weight (Kilograms): 131.500 Laboratory Laboratory Laboratory Tests 08/14/16 05:44 08/15/16 04:41 Laboratory Tests 08/14/16 05:44 08/14/16 18:51 08/15/16 04:41 Microbiology Microbiology Microbiology Date/Time Source Procedure Growth Status 08/13/16 13:03 Peripheral/Iv Start Blood Culture - Preliminary NO GROWTH AFTER 48 HOURS Resulted 08/13/16 12:58 Peripheral/Iv Start Blood Culture - Preliminary NO GROWTH AFTER 48 HOURS Resulted Radiology Renal sonogram showed no hydronephrosis. Bilateral renal cysts were seen and had been seen on prior CT. Assessment & Plan Problems: (1) Self-care deficit for hygiene (2) Skin breakdown (3) Incontinence Status: Chronic Qualifiers: Incontinence type: urinary (4) COPD (chronic obstructive pulmonary disease) Status: Chronic (5) Morbid obesity with BMI of 50.0-59.9, adult (6) CAD (coronary artery disease) Status: Chronic (7) Chronic kidney disease, stage III (moderate) Status: Chronic (8) Hypothyroidism Status: Chronic (9) HTN (hypertension) Status: Chronic (10) Type II diabetes mellitus, uncontrolled Status: Chronic (11) PVD (peripheral vascular disease) Status: Chronic (12) Atrial fibrillation Onset Date: ~ 04/2016 Status: Chronic (13) Right leg DVT Onset Date: ~ 04/2016 (14) GERD (gastroesophageal reflux disease) Status: Chronic Assessment 08/15/2016 Dr. Evans Anemia-with drop in hemoglobin since April -iron, B-12 and folate are all okay. 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 She might need follow- up with hematology/oncology as an outpatient.Mild maceration of the skin with urinary incontinence-improving Acute kidney injury on chronic kidney disease-it's uncertain if this is because of diuresis. She likely had not been taking her diuretics at home secondary to urinary incontinence Atrial fibrillation-continue Coumadin per pharmacy. The patient admits that she had ran out of her medication and had not picked it up at the pharmacy for a couple of weeks History of HIT-she did receive Lovenox 1 on 08/14/2016. Platelets okay yesterday and today. Will recheck tomorrow. Urinary incontinence-recommend scheduled toileting every 2 hours Diabetes mellitus-continue current insulin regimen recommended by Dr. Segovia Right leg DVT April 2016-continue Coumadin. We'll need to be followed closely as an outpatient. Hypertension-stable Morbid obesity Generalized weakness Coronary artery disease with history of stent placed several years ago My concerns about this patient are for her worsening anemia in a patient needing Coumadin for recent DVT and paroxysmal A. fib and for her increasing creatinine this hospital course. She did have a history of acute renal failure requiring hospitalization at [facility] in April 2016. We'll recheck lab work tomorrow and make sure her creatinine is not rising further. We 'll recheck a CBC regarding Coumadin and recent dose of Lovenox. If lab work is stable and she is doing well and she can likely be discharged to home. She will go home with home health. She will need home safety eval and PT and OT at home. She will need lab work on Thursday with CBC, basic metabolic profile and INR to be sent to her primary care doctor. [facility] did bring incontinence supplies for her. Greater than 35 minutes of time was spent seeing and evaluating the patient today, trying to arrange safe discharge with case management, and determining care plan for today. Plan/Intensity of Service Skin breakdown with urinary incontinence - wound care eval. pending Anemia - records from [facility] reviewed. In April,, iron studies were normal (Fe 92, TIBC 407, Fe sat 23, transferrin 273), B12 was normal at 621 and folate was normal at 16.5. She was evaluated by heme/onc at that time and had a full hematologic w/u done. IgM was low at 26. Hep A,B,C were neg. A1c was 6.9% in Apr. Will repeat iron, B12, and folate studies since her hgb is lower now than it was in Apr 2016 (11.5). CKD - Cr in Apr 2016 was 1.77. Renal sono pending. I spoke with cardiology - pt has a hx of not taking her medications as Rx. This was seen with her subtherapeutic INR. Therapeutic Lovenox was given today. She was also supposed to be on amiodarone, but this was not listed on her medication list and pt was unable to speak as to why she wasn't on it. EKG shows sinus rito with a rate of 58. Cardiology recommends not to restart amio at this time. I discussed care with Dr. Evans. We are quite worried about her worsening anemia for no apparent cause. This combined with the fact that we are going to fully anticoagulate her is concerning for safe discharge back home today. SOB is pending. Generalized weakness - OT recommends HH. PT eval pending. DVT Prophylaxis: Coumadin Code Status Full Code Hospital Course Summary Disclaimer The hospital course summary below is not to be considered part of the above Progress Note. Hospital Course Summary 08/13/16 Admit, observation status under the hospitalist service. 1. Skin breakdown with open lesions, secondary to urinary incontinence. - Provide good skin care. Consult the wound nurse for recommendations - Self deficits for hygiene; consult Syrup Shed Supervisor. - Assess septic w/u given erythemic appearance, concerning for infection. 2. DM2 - monitor sugars. She had A1c checked today at Dr. Segovia's office - results pending. - resume insulin schedule as determined by Dr. Segovia. 3. A-fib - cont. Coumadin per pharm. protocol - also had DVT to right femoral vein in Apr, 2016. 4. Hx of COPD - cont. inhalers and oxygen. - stable but with a worse cough - check CXR. 5. CAD/PVD - cont. Plavix - she sees Dr. Wynn. 08/14/16 Skin breakdown with urinary incontinence - wound care eval. pending Anemia - records from [facility] reviewed. In April,, iron studies were normal (Fe 92, TIBC 407, Fe sat 23, transferrin 273), B12 was normal at 621 and folate was normal at 16.5. She was evaluated by heme/onc at that time and had a full hematologic w/u done. IgM was low at 26. Hep A,B,C were neg. A1c was 6.9% in Apr. Will repeat iron, B12, and folate studies since her hgb is lower now than it was in Apr 2016 (11.5). CKD - Cr in Apr 2016 was 1.77. Renal sono pending. I spoke with cardiology - pt has a hx of not taking her medications as Rx. This was seen with her subtherapeutic INR. Therapeutic Lovenox was given today. She was also supposed to be on amiodarone, but this was not listed on her medication list and pt was unable to speak as to why she wasn't on it. EKG shows sinus rito with a rate of 58. Cardiology recommends not to restart amio at this time. I discussed care with Dr. Evans. We are quite worried about her worsening anemia for no apparent cause. This combined with the fact that we are going to fully anticoagulate her is concerning for safe discharge back home today. SOB is pending. Generalized weakness - OT recommends HH. PT eval pending. 08/14/2016-I reviewed this chart, the patient history, and the DIE ENGRAVING SUPERVISOR's/PA's documented findings as above. We discussed and formulated the assessment and plan as above with the additions below.-Dr. Evans The patient is seen in her room this afternoon. She complains of occasional pain in her legs if she sits on a toilet. She denies any chest pain or abdominal pain. She denies any shortness of breath that is requiring 3-4 L of oxygen. She is eating and drinking okay. She has had problems with nosebleeds in the past. She does not appear to be very aware of her past medical problems or her medications. She did not remember that she had been prescribed blood thinners and did not appear to have stopped them because of any bleeding issues. She denies any vomiting of blood or bloody stools. She denies any black stools. She does not recall being anemic. When she was last in the hospital at [place] in April her hemoglobin was 11.5. The patient does have history of DVT in April 2016 as well as paroxysmal atrial fibrillation and for both of these reasons she was prescribed Coumadin. She is also supposed to be on Plavix for coronary artery disease with history of stent. We are resuming her anticoagulation here in the hospital but with a drop in her hemoglobin from April to now, and from yesterday to today. I feel we need to watch her hemoglobin closely while reinitiating anticoagulation and check a CBC tomorrow and Hemoccult with her next stool. She is also had a bump in her creatinine from 1.6 up to 1.8. Renal sonogram showed no hydronephrosis. On exam she is alert and in no acute distress. Chest is clear to auscultation. Cardiovascular reveals a regular rate and rhythm. Abdomen is obese, soft nontender with positive bowel sounds. Extremities reveal erythema of the posterior thighs with pendulunt skin. No obvious abscesses are felt but she does have tenderness. She does have some mild skin breakdown over the left buttock. I would like to change to inpatient status. We'll await recommendations from spring encaser. I do not feel the patient is stable for discharge to home regarding her anemia, reinitiation of anticoagulation, and with her little understanding of her medical conditions and medications. Will reevaluate tomorrow. Possible discharge tomorrow if lab work is stable and Hemoccult is negative. If Hemoccult is positive may need further workup as well as decision on whether to continue anticoagulation and/or Plavix. AIDEN EVANS MD Aug 15, 2016 23:42
[2016-08-16 04:24] VITALS: BP 138/67; PULSE 50; RESP 16; TEMP 98.1; O2SAT 94
[2016-08-16 04:59] LABS: BASOPHILS % (AUTO) 0.2 % (0-2); EOSINOPHILS # (AUTO) 0.4 T/MM3 (0-0.5); EOSINOPHILS % (AUTO) 4.4 % (0-4); HCT - HEMATOCRIT 31.5 % (36-46); HGB - HEMOGLOBIN 9.5 GM/DL (12-16); IMMATURE GRANULOCYTE # (AUTO) 0.02 T/MM3 (0.00-0.03); IMMATURE GRANULOCYTE % (AUTO) 0.2 % (0.0-0.5); LYMPHOCYTES # (AUTO) 1.8 T/MM3 (1-4.8); LYMPHOCYTES % (AUTO) 19.7 % (23-45); MEAN CORPUSCULAR HGB 28.6 UUG (26-34); MEAN CORPUSCULAR HGB CONC(MCHC 30.2 GM/DL (31-37); MEAN CORPUSCULAR VOLUME 94.9 UM3 (80-100); MEAN PLATELET VOLUME 10.2 UM3 (9.4-12.4); MONOCYTES # (AUTO) 0.6 T/MM3 (0-0.8); MONOCYTES % (AUTO) 6.5 % (0-9.0); NEUTROPHILS #(AUTO)-ABSOLUTE 6.3 T/MM3 (1.8-7.7); RED BLOOD COUNT 3.32 M/MM3 (4.00-5.20); WBC - WHITE BLOOD COUNT 9.1 T/MM3 (4.5-11.0)
[2016-08-16 05:01] LABS: INR 1.2 (0.76-1.04); PROTHROMBIN TIME 13.1 SEC (9.31-12.49)
[2016-08-16 05:10] LABS: ANION GAP 10 MEQ/L (5-15); BUN/CREATININE RATIO 20 RATIO (6-26); CALCIUM 9.4 MG/DL (8.4-10.2); CHLORIDE 96 MEQ/L (98-107); CO2 - CARBON DIOXIDE 38 MEQ/L (22-30); CREATININE 1.9 MG/DL (0.7-1.2); GLOMERULAR FILTRATION RATE 27; GLUCOSE 204 MG/DL (65-110); POTASSIUM 3.9 MEQ/L (3.6-5); SODIUM 144 MEQ/L (134-144)
--- NOTE | 2016-08-16 05:56 | NUR ---
SHIFT SUMMARY PATIENT IS ALERT AND ORIENTED X3 THIS SHIFT. VITALS SIGNS ARE STABLE ON 3L NC THIS SHIFT. PATIENT HAS REFUSED OFFERS TO RETURN TO BED THIS SHIFT. SHE STATES THAT SHE HAS MORE DIFFICULTY SLEEPING IN BED. PATIENT HAS REPORTED NO PAIN THIS SHIFT. PATIENT CONTINUES TO BE HUNGRY BETWEEN MEALS, SO SHE WAS GIVEN SUGAR FREE JELLO ON REQUEST. BLOOD SUGARS CONTINUE TO BE ELEVATED, AND SLIDING SCALE INSULIN HAS BEEN GIVEN. PATIENT CONTINUES TO BE INCONTINENT. HAS STOOD WITH ASSIST X2 AND WALKER TO BE CHANGED. OTHERWISE PATIENT IS STAND AND PIVOT TO TRANSFER. WILL CONTINUE TO MONITOR.
[2016-08-16] MEDS: PANTOPRAZOLE 40 MG TABLET PO SCH (06:45)
[2016-08-16] MEDS: LEVOTHYROXINE 25 MCG TABLET PO SCH (06:45)
[2016-08-16] MEDS: INSULIN LISPRO 100 UNIT/ML SQ PRN ×2 (06:45→20:43)
--- NOTE | 2016-08-16 07:49 | NUR ---
COUMADIN CONSULT (Recurring): 65 y.o. female with history of a.fib and DVT and chronic anticoagulation with Warfarin. Pharmacy consulted to manage Warfarin per protocol. Home dose=4 mg po daily. Date INR dose 08/13 1.14 5 mg 08/14 1.14 5 mg 08/15 1.13 6 mg 08/16 1.20 plan: 7.5 mg monitor platelets date platelet count 08/14 226 T/mm3 08/15 231 T/mm3 08/16 244 t/mm3 INR is subtherapeutic. Will give Warfarin 7.5 mg today. INR has had very little increase in the last 4 days. Increased the Warfarin dose today. No significant drug-drug interactions noted. However patient does have a recent outpatient RX history of Amiodarone but is not currently taking Amiodarone at [facility]. Amiodarone interacts with Warfarin and increases INR. The DC of Amiodarone may result in her requiring a higher Warfarin dose. Patient has a history of HIT and 08/14/16 she received a single dose of Lovenox. Platelets are being monitored for signs of HIT. Pharmacy will continue to monitor & make adjustments accordingly. Thank you. Lucero Kowalski [facility]
[2016-08-16] MEDS: AMLODIPINE 5 MG TABLET PO SCH (08:11)
[2016-08-16] MEDS: DOCUSATE SODIUM 100 MG CAPSULE PO SCH (08:12)
[2016-08-16] MEDS: INSULIN LISPRO 100 UNIT/ML SQ SCH ×3 (08:12→16:49)
[2016-08-16 08:28] VITALS: BP 125/46; PULSE 54; RESP 20; O2SAT 95
[2016-08-16 09:10] VITALS: O2SAT 95
[2016-08-16] MEDS: BUDESONIDE INH.SOLN. 0.5mg/2ml NEB AEROSOL SCH ×2 (09:14→09:15)
[2016-08-16] MEDS ORDERED: WARFARIN 7.5 MG TABLET PO SCH (12:00)
[2016-08-16] MEDS ORDERED: ACETAMINOPHEN 325 MG TABLET PO PRN (13:15)
[2016-08-16] MEDS ORDERED: AMLO5TAB2 PO (16:12)
[2016-08-16] MEDS ORDERED: INSU100V SQ ×3 (16:12)
[2016-08-16] MEDS ORDERED: INSU100V12 SQ (16:12)
[2016-08-16] MEDS ORDERED: HYDR-4181 PO (16:12)
[2016-08-16] MEDS ORDERED: SIMV40TA5 PO (16:12)
[2016-08-16] MEDS ORDERED: WARF5TAB6 PO (16:14)
--- NOTE | 2016-08-16 16:36 | DSPDOC ---
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 Acute kidney injury on chronic kidney disease-creatinine at discharge is 1.9 DVT of the leg diagnosed in April 2016 Atrial fibrillation Diabetes mellitus-poorly controlled COPD-requiring 1-3 L of oxygen per nasal cannula Morbid obesity Peripheral edema Coronary artery disease Peripheral vascular disease Chronic anticoagulation with Coumadin resumed-very slow increase in INR 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 The patient did receive 1 dose of Lovenox accidentally-platelets have remained stable for the past 3 days in the normal range Procedures None Laboratory Item Value Date Time Prothromb Time International Ratio 1.20 H 08/16/16 0425 Prothromb Time International Ratio 1.13 H 08/15/16 0441 Prothromb Time International Ratio 1.14 H 08/14/16 0544 Prothromb Time International Ratio 1.14 H 08/13/16 1258 Vitamin B12 Level 605 PG/ML 08/14/16 1433 Folate 12.1 NG/ML 08/14/16 1433 Total Bilirubin 0.60 MG/DL 08/13/16 1258 Iron Level 45 UG/DL 08/14/16 1433 Total Iron Binding Capacity 243 UG/DL L 08/14/16 1433 Ferritin 83.8 NG/ML 08/14/16 1433 Laboratory Tests Test 08/15/16 04:41 08/15/16 06:10 08/15/16 10:06 08/15/16 14:04 White Blood Count 9.6T/MM3 (4.5-11.0) Red Blood Count 3.30M/MM3 (4.00-5.20) Hemoglobin 9.6GM/DL (12-16) Hematocrit 31.5% (36-46) Mean Corpuscular Volume 95.5UM3 (80-100) Mean Corpuscular Hemoglobin 29.1UUG (26-34) Mean Corpuscular Hemoglobin Concent 30.5GM/DL (31-37) RDW Standard Deviation 45.6FL (36.9-50.2) Platelet Count 231T/MM3 (130-400) Mean Platelet Volume 10.1UM3 (9.4-12.4) Immature Granulocyte % (Auto) 0.3% (0.0-0.5) Neutrophils (%) (Auto) 67.6% (33-66) Lymphocytes (%) (Auto) 19.9% (23-45) Monocytes (%) (Auto) 6.9% (0-9.0) Eosinophils (%) (Auto) 5.1% (0-4) Basophils (%) (Auto) 0.2% (0-2) Absolute Immature Granulocyte (auto 0.03T/MM3 (0.00-0.03) Absolute Neutrophils (auto) 6.5T/MM3 (1.8-7.7) Absolute Lymphocytes (auto) 1.9T/MM3 (1-4.8) Absolute Monocytes (auto) 0.7T/MM3 (0-0.8) Absolute Eosinophils (auto) 0.5T/MM3 (0-0.5) Absolute Basophils (auto) 0.0T/MM3 (0-0.2) Prothromb Time International Ratio 1.13 (0.76-1.04) Turbidity < 20 (0-20) Sodium Level 143MEQ/L (134-144) Potassium Level 3.8MEQ/L (3.6-5) Chloride Level 96MEQ/L (98-107) Carbon Dioxide Level 37MEQ/L (22-30) Anion Gap 10MEQ/L (5-15) Blood Urea Nitrogen 35.0MG/DL (7-17) Creatinine 1.9MG/DL (0.7-1.2) Glomerular Filtration Rate Calc 27 BUN/Creatinine Ratio 18RATIO (6-26) Glucose Level 205MG/DL (65-110) Calculated Osmolality 289MOSM/KG (261-280) Calcium Level 9.4MG/DL (8.4-10.2) Phosphorus Level 5.3MG/DL (2.5-4.5) Icterus Index < 2 (0-7) Chemistry Specimen Hemolysis < 15 (0-25) Glucometer 213mg/dL (65-110) 267mg/dL (65-110) 324mg/dL (65-110) Test 08/15/16 20:06 08/16/16 04:25 08/16/16 10:09 4/1/17 14:08 Glucometer 265mg/dL (65-110) 288mg/dL (65-110) 316mg/dL (65-110) White Blood Count 9.1T/MM3 (4.5-11.0) Red Blood Count 3.32M/MM3 (4.00-5.20) Hemoglobin 9.5GM/DL (12-16) Hematocrit 31.5% (36-46) Mean Corpuscular Volume 94.9UM3 (80-100) Mean Corpuscular Hemoglobin 28.6UUG (26-34) Mean Corpuscular Hemoglobin Concent 30.2GM/DL (31-37) RDW Standard Deviation 45.1FL (36.9-50.2) Platelet Count 244T/MM3 (130-400) Mean Platelet Volume 10.2UM3 (9.4-12.4) Immature Granulocyte % (Auto) 0.2% (0.0-0.5) Neutrophils (%) (Auto) 69.0% (33-66) Lymphocytes (%) (Auto) 19.7% (23-45) Monocytes (%) (Auto) 6.5% (0-9.0) Eosinophils (%) (Auto) 4.4% (0-4) Basophils (%) (Auto) 0.2% (0-2) Absolute Immature Granulocyte (auto 0.02T/MM3 (0.00-0.03) Absolute Neutrophils (auto) 6.3T/MM3 (1.8-7.7) Absolute Lymphocytes (auto) 1.8T/MM3 (1-4.8) Absolute Monocytes (auto) 0.6T/MM3 (0-0.8) Absolute Eosinophils (auto) 0.4T/MM3 (0-0.5) Absolute Basophils (auto) 0.0T/MM3 (0-0.2) Prothromb Time International Ratio 1.20 (0.76-1.04) Turbidity < 20 (0-20) Sodium Level 144MEQ/L (134-144) Potassium Level 3.9MEQ/L (3.6-5) Chloride Level 96MEQ/L (98-107) Carbon Dioxide Level 38MEQ/L (22-30) Anion Gap 10MEQ/L (5-15) Blood Urea Nitrogen 37.0MG/DL (7-17) Creatinine 1.9MG/DL (0.7-1.2) Glomerular Filtration Rate Calc 27 BUN/Creatinine Ratio 20RATIO (6-26) Glucose Level 204MG/DL (65-110) Calculated Osmolality 292MOSM/KG (261-280) Calcium Level 9.4MG/DL (8.4-10.2) Icterus Index < 2 (0-7) Chemistry Specimen Hemolysis < 15 (0-25) Microbiology Cultures 2 are negative after 3 days Radiology DATE OF EXAM: 08/14/16 ORDERING DOCTOR: CLARISSE EVANS MD TYPE OF EXAM: US RENAL REASON FOR EXAM: mild alo on ckd Indication: ITS.REASON: mild alo on ckd PROCEDURE: US RENAL: Encounter: Initial Comparison: Renal ultrasound dated April 06, [address] angiogram dated January 25, 2013 Technique: Grayscale and color Doppler sonographic imaging of both kidneys was performed. FINDINGS: Limited visualization of the left kidney due to patient body habitus and acoustic windows. Both kidneys are present with normal cortical thickness. No gross hydronephrosis. The right kidney measures 11.7 cm in length, and the left kidney measures 11.8 cm in length. Bilateral renal cysts as seen on the prior CT. The left-sided cyst has enlarged, now measuring up to 3 cm in diameter. IMPRESSION: No hydronephrosis. History of Present Illness Cha was seen by both PCP (Dr. Rivers) and personnel worker (Dr. Whelan) on 08/13. Dr. Whelan increased Levemir and introduced Novolog before meals d/t hyperglycemia ranging from 200 to "HI" on monitor. Dr. Rivers noted macerated skin to both posterior legs, thought to be from urinary incontinence and assoc. poor self-hygiene. Arrangements were then made for direct admission under the hospitalist service. Her skin breakdown is complicated by the fact that the patient walks "as little as possible" - she states that her legs don't support her, and feel weak, and she has too big of a belly. Also urinary incontinence increased since BANKING SPECIALIST at increased Lasix dose a few weeks ago. This has helped her leg swelling, but has made it difficult for her significant other to keep her dry. She had a significant illness the end of Apr, 2016 (ALO and severe hyperkalemia), and post-discharge was [facility] for a couple months. After that, she lived with her niece in [place], and finally moved back in with her SO at the beginning of July. ROS was only positive for leg weakness, chronic cough that is slightly worse over the last couple of days, and chronic shortness of breath. Hospital Course The patient was admitted on 08/13/2016 with failure of self-care, incontinence of urine and skin breakdown on the thighs. During the hospital course she was found to have multiple medical issues. She had not been compliant with many of her medications. Regarding urinary incontinence we recommended scheduled toileting every 2 hours while awake and waking up once at night to go to the bathroom. She was given incontinence supplies by [facility]. Regarding excoriation to the thighs, this has improved with topical lotion. The patient was seen by the wound and skin nurse that she had a shear wound on the right posterior thigh. Mepilex dressing was placed on it. This can be followed up with home health The patient had history of DVT in April 2016 and had not been taking her Coumadin. She also has paroxysmal atrial fibrillation. She had not been taking her amiodarone. Dr. Wynn recommended discontinuation of amiodarone. Regarding her coronary artery disease and peripheral vascular disease he recommended discontinuation of Plavix since it did been greater than 1 year after cardiac stent. He recommended restarting Coumadin for her DVT and paroxysmal atrial fibrillation. During the hospital course INR is very slow to increase on the day of discharge she was given 7.5 mg of Coumadin. She will take another 7.5 mg of Coumadin tomorrow and will have an INR the following day for 08/04/2016 that should be called to Dr. Rivers to determine further Coumadin dosing. The patient does have a history of heparin-induced thrombocytopenia. She was accidentally given a dose of Lovenox 1 for bridging on 08/14/2016. Fortunately, platelets have remained steady since that time in the mid 200 range. Her INR today is only 1.2. She will not receive any bridging. Because of her kidney disease she is likely not a good candidate for other anticoagulants. Regarding diabetes, the patient saw Dr. Whelan on the day of admission and he gave recommendations regarding insulin. She will remain on insulin as written in discharge summary. She needs to monitor her Accu-Cheks and follow up with Dr. Whelan as scheduled Regarding anemia, her hemoglobin is approximately 2 g lower than it was in April. At that time her iron, B-12 and folate were normal. They were rechecked this hospitalization and are all still normal. When she was seen at [facility] in April she saw a levee superintendent oncologist who gave her a possible diagnosis of monoclonal gammopathy of undetermined significance. We will recheck a CBC on Thursday with home health. Consider follow-up with heme on regarding worsening anemia. It may be related to her chronic kidney disease as well. Regarding chronic kidney disease, with reinitiation of diuretics for lower extremity edema her creatinine did increase from 1.7-1.9. Lasix was held on the day of discharge. She can get a basic metabolic profile on Thursday and Dr. Rivers can decide whether or not to restart her Lasix and/or potassium. Renal sonogram did not show any hydronephrosis. The patient may benefit from follow- up with a rotary envelope machine operator. Regarding debility PT and OT will continue through home health. She is to walk with a walker. She is to be as active as possible. Regarding peripheral edema, resuming Lasix when okay with Dr. Rivers. Guarding COPD oxygen saturations are currently-95% on 1 L. She is chronically on oxygen. She can continue 1-3 L of oxygen per nasal cannula. Consider follow- up to see if oxygen can be weaned down. She is at risk for sleep apnea and could consider evaluation for sleep apnea if it has not been done in the past. Regarding coronary artery disease, atrial fibrillation, peripheral vascular disease recommend follow-up with Dr. Wynn this month. Regarding hypertension she has fair blood pressure control on Norvasc and hydralazine. On the day of discharge the patient is alert and in no acute distress. She is breathing comfortably. She feels ready for dismissal to home. Home health has been arranged. Chest is clear to auscultation. Cardiovascular reveals a regular rate and rhythm. Abdomen is soft and nontender. Legs reveal chronic lower edema with erythema below the knees. Greater than 35 minutes of time was spent on dismissal day. I will try to reach Dr. Rivers to discuss discharge planning with her. Problems: (1) Self-care deficit for hygiene (2) Skin breakdown (3) Incontinence Status: Chronic (4) COPD (chronic obstructive pulmonary disease) Status: Chronic (5) Morbid obesity with BMI of 50.0-59.9, adult (6) CAD (coronary artery disease) Status: Chronic (7) Chronic kidney disease, stage III (moderate) Status: Chronic (8) Hypothyroidism Status: Chronic (9) HTN (hypertension) Status: Chronic (10) Type II diabetes mellitus, uncontrolled Status: Chronic (11) PVD (peripheral vascular disease) Status: Chronic (12) Atrial fibrillation Onset Date: ~ 04/2016 Status: Chronic (13) Right leg DVT Onset Date: ~ 04/2016 (14) GERD (gastroesophageal reflux disease) Status: Chronic Code Status Full Code Home Meds Active Scripts Warfarin Sodium (Warfarin Sodium) 5 Mg Tablet, 5 MG PO NOON, #30 TAB Take 1-1/2 tablets at noon time on Thursday, August 17. Dr. Rivers will inform you of how much warfarin to take after lab work on Thursday Prov:CLARISSE EVANS MD 08/16/16 Hydralazine HCl (Hydralazine HCl) 50 Mg Tablet, 1 TAB PO WMHS, #120 TAB BEST TAKEN WITH MEALS. Prov:CLARISSE EVANS MD 08/16/16 Insulin Lispro (Humalog) 100 Unit/Ml Inj, 7 UNIT SQ 1145, #1 BOTTLE Prov:CLARISSE EVANS MD 08/16/16 Insulin Lispro (Humalog) 100 Unit/Ml Inj, 7 UNIT SQ 1715, #1 BOTTLE Prov:CLARISSE EVANS MD 08/16/16 Insulin Lispro (Humalog) 100 Unit/Ml Inj, 7 UNIT SQ 0745, #5 BOTTLE Prov:CLARISSE EVANS MD 08/16/16 Insulin Detemir (Levemir) 100 Unit/Ml Inj, 20 UNIT SQ HS, #1 BOTTLE Prov:CLARISSE EVANS MD 08/16/16 Simvastatin (Simvastatin) 40 Mg Tablet, 40 MG PO HS, #30 TAB Prov:CLARISSE EVANS MD 08/16/16 Amlodipine Besylate (Amlodipine Besylate) 5 Mg Tablet, 5 MG PO DAILY, #30 TAB Prov:CLARISSE EVANS MD 08/16/16 Nystatin (Nystatin) 50,000,000 Unit Powder.ea., 1 APPLIC TOP TID for 30 Days, # 5 TUBE Prov:LEAH WRIGHT MD 04/26/16 Budesonide (Pulmicort Flexhaler 180) 120 Puff/Inhaler Inha, 1 PUFF ORAL INH BID , #1 INHALER Prov:JUDY MUHAMMAD MD 12/25/15 Reported Medications Pantoprazole Sodium (Pantoprazole Sodium) 40 Mg Tablet.dr, 40 MG PO ACB 01/26/14 Levothyroxine Sodium (Levothroid) 25 Mcg Tablet, 25 MCG PO ACB 05/03/12 Discontinued Reported Medications Clopidogrel Bisulfate (Clopidogrel) 75 Mg Tablet, 75 MG PO DAILY 04/04/15 Face to Face Encounter I met with patient on the day of dismissal and discussed follow up appointments , medications, and safety plan. Discharge Disposition Dismiss to home with home health Copies To 1: CHALINO WYNN MD; JASPAL RIVERS; KAYLI WHELAN MD, STEPHANIE L MD Aug 16, 2016 16:19
[2016-08-16 16:39] VITALS: BP 143/64; PULSE 57; RESP 18; O2SAT 94
--- NOTE | 2016-08-16 18:32 | NUR ---
Patient Status Patient has been in her room in the recliner since this RN assumed cares at 0700. She is incontinent telling staff to "change" her when she voids. She walked to the BR with 2 assist and with FWW and gait belt once. She has been demanding of staff's time, unable to make "simple" decisions such as tea or water for her meals. Areas of breakdown to right posterior upper leg and left inner buttock are covered with small mepilex border C/D/I.
--- NOTE | 2016-08-16 18:35 | NUR ---
Discharge Status Doctor has given discharge orders; patient and significant other are working on transportation
--- NOTE | 2016-08-16 19:30 | NUR ---
COMMUNICATION AFTER RECEIVING REPORT FROM ROLF RN, CONCERNING PTS DISMISSAL CONFLICT OF NOT HAVING A RIDE HOME, ROLF SAID SHE TALKED WITH KENAN IN CASE MANAGEMENT ABOUT A POSSIBLE NON-EMERGENT EMS TRANSPORT HOME. AFTER SPEAKING WITH PT ABOUT COST OF EMS TRANSPORT VS. STAYING ANOTHER NIGHT IN HOSPITAL, PT DECIDED SHE WOULD RATHER DO THE EMS TRANSPORT. PTS CALLED AT THIS TIME AND WAS VERY IRRITATED ON PHONE, ASKING WHY NURSES FROM [facility] WERE NOT HERE TO DRIVE PT HOME AND NOT UNDERSTANDING WHY THERE WAS NO STAFF HERE TO HELP WITH TRANSPORT. AFTER SPEAKING WITH HIM ABOUT POSSIBLE EMS TRANSPORT, PTS SAID "OH HECK NO, WE'RE NOT DOING THAT!" PT SAID SHE WOULD LIKE TO WAIT AND SEE IF HER COULD GET AHOLD OF PTS MOTHER AT 1999, BUT PT SAID "GO AHEAD AND ASK THE DR TO SIGN THE EMS PAPER, JUST IN CASE." DR. HAM DID NOT WANT TO SIGN EMS TRANSPORT PAPER, DUE TO IT NOT BEING A MEDICAL NECESSITY.
--- NOTE | 2016-08-16 20:15 | NUR ---
CASE MANAGEMENT THIS RN SPOKE WITH KENAN FROM CASE MANAGEMENT ON THE PHONE-KENAN ALSO TALKED WITH CIRCUS PERFORMER AT THIS TIME.KENAN'S SUGGESTIONS WERE TO SEE IF THE POLICE WOULD BE ABLE TO TAKE PT HOME WITH LOANING AN OXYGEN TANK AND POLICE COULD BRING IT BACK TO HOSPITAL. THIS RN SPOKE WITH POLICE AND SAID AN OFFICER WOULD BE CALLING ME IF THEY WERE ABLE TO TAKE PT HOME. OFFICER MICHELA CALLED ME A FEW MINUTES LATER AND AFTER EXPLAINING THAT THE PT WAS ON OXYGEN AND WAS W/C BOUND, OFFICER MICHELA SAID HE WOULD HAVE TO TAKE TO HIS CLINICAL DATA MANAGEMENT MANAGER DUE TO PT HAVING A W/C AND DIDN'T THINK THEY COULD TRANSPORT THE W/C. I THEN SPOKE WITH DR. HAM A LITTLE WHILE LATER, WHO SAID HER COULD TAKE THE W/C WHILE THE POLICE DRIVE THE PT HOME. WILL CONTINUE TO MONITOR.
--- NOTE | 2016-08-16 20:40 | NUR ---
POLICE I ATTEMPTED TO CALL OFFICER MICHELA BACK SEVERAL TIMES AND LEFT A MESSAGE TO ASK IF HE COULD STILL TRANSPORT PT TO HER HOUSE WITHOUT THE W/C. STILL AWAITING CALL BACK.
--- NOTE | 2016-08-16 21:00 | NUR ---
RIDE HOME THIS RN WAS NOTIFIED BY THE SCHOOL VOCATIONAL EDUCATOR OF PTS ANA COMING TO PICK HER UP AFTER PTS MOTHER CONTACTED HER. OFFICER MICHELA CALLED BACK AT THIS TIME AND I TOLD HIM A RIDE WAS NO LONGER NEEDED. I THEN CALLED DR. HAM AND NOTIFIED HER OF PTS ANA COMING TO TECHNICAL SPEC PT.
--- NOTE | 2016-08-16 21:32 | NUR ---
DISMISSAL/ARGUMENT PTS ARRIVED WITH OXYGEN TANK FROM HOME. DISCHARGE PAPERWORK ALREADY REVIEWED WITH PT, PT VERBALIZED UNDERSTANDING. SCRIPTS GIVEN TO PT. WHEN THIS RN TRYING TO CUT OFF PTS ARM BAND, SHE YELLED "DON'T YOU DO THAT! I ALREADY TOLD HER NO"-MOTIONING TO NURSE HOWELL. AFTER EXPLAINING TO PT THAT WE NEEDED TO REMOVE ARM BAND BEFORE DISMISSAL, SHE SAID "I HAVE A WHOLE DRAWER FULL OF THEM AT HOME!". I THEN SAID I WOULD JUST MAKE A NOTE THAT SHE REFUSED TO HAVE HER ARM BAND CUT OFF, PT YELLED "OH I'M NOT HAVING A REFUSAL ON MY CHART! JUST TAKE IT OFF THEN." NURSE DANTE NOTIFIED ME THAT PTS WAS YELLING THAT PT DID NOT RECEIVE HER INSULIN YET. PT DID NOT WANT THE BEDTIME INSULIN GIVEN AT THIS TIME, SHE WOULD RATHER TAKE IT AT HOME. NURSE DANTE INFORMED ME THAT PTS WAS YELLING AT HER ABOUT THERE NOT BEING ENOUGH STAFF AND PT BEING NEGLECTED SINCE NOT RECEIVING HER INSULIN. PTS THOUGHT NURSE DANTE WAS LYING WHEN SHE TOLD HIM THAT WE WERE BUSY IN A DIFFERENT ROOM. BY THE TIME I WAS DONE IN A DIFFERENT ROOM, PT AND WERE ALREADY DISMISSED. PT DISMISSED VIA W/C THRU E.R EXIT ACCOMPANIED BY STAFF AND . ALL BELONGINGS SENT HOME WITH PT. PT IN NO ACUTE DISTRESS.
== END 2016-08-16 21:32 | disposition home health service (06) | DRG 812 ==
LOC: SRG 10:58 → OBSVTOIN 08-15 17:02
PROVIDERS: ADMIT Internal Medicine; ATTEND Internal Medicine
DX: D64.9 Anemia, unspecified (principal); N17.9 Acute kidney failure, unspecified; Z68.43 Body mass index [BMI] 50.0-59.9, adult; R32 Unspecified urinary incontinence; S70.312A Abrasion, left thigh, initial encounter; S70.311A Abrasion, right thigh, initial encounter; I12.9 Hypertensive chronic kidney disease with stage 1 through stage 4 chronic kidney disease, or unspecified chronic kidney disease; E11.22 Type 2 diabetes mellitus with diabetic chronic kidney disease; N18.3 Chronic kidney disease, stage 3 (moderate); J44.9 Chronic obstructive pulmonary disease, unspecified; I25.10 Atherosclerotic heart disease of native coronary artery without angina pectoris; E66.01 Morbid (severe) obesity due to excess calories; E03.9 Hypothyroidism, unspecified; I73.9 Peripheral vascular disease, unspecified; I48.91 Unspecified atrial fibrillation; K21.9 Gastro-esophageal reflux disease without esophagitis; R60.0 Localized edema; E11.65 Type 2 diabetes mellitus with hyperglycemia; Z86.718 Personal history of other venous thrombosis and embolism; X58.XXXA Exposure to other specified factors, initial encounter; Y99.8 Other external cause status
CPT/HCPCS: 36415; 80048; 80053; 80069; 82607; 82728; 82746; 82948; 83540; 83550; 83605; 83735; 84100; 85025; 85610; 87040; 90686; 93005; 94640; 96372; 99218

== ENCOUNTER → 2016-08-18 | Outpatient (CLI) | payer MEDICAID ==
[~2016-08-18] MED LIST changes: +AMLO5TAB2 PO; -CLOP75TA33 PO; +HYDR-4181 PO; +INSU100V SQ; +INSU100V12 SQ; +SIMV40TA5 PO; +WARF5TAB6 PO
[2016-08-18 15:25] LABS: ANION GAP 14 MEQ/L (5-15); BUN/CREATININE RATIO 18 RATIO (6-26); CALCIUM 9.6 MG/DL (8.4-10.2); CHLORIDE 98 MEQ/L (98-107); CO2 - CARBON DIOXIDE 33 MEQ/L (22-30); CREATININE 1.5 MG/DL (0.7-1.2); GLOMERULAR FILTRATION RATE 35; GLUCOSE 324 MG/DL (65-110); POTASSIUM 3.9 MEQ/L (3.6-5); SODIUM 145 MEQ/L (134-144)
== END ==
LOC: LABN.PHHH 14:52
PROVIDERS: ATTEND Family Medicine
DX: I10 Essential (primary) hypertension (principal)
CPT/HCPCS: 80048

== ENCOUNTER 2016-09-11 10:47 | Emergency (ER) | payer MEDICAID ==
[~2016-09-11] VITALS: Ht 157.5 cm; Wt 135.9 kg
[2016-09-11 10:50] VITALS: Ht 157.5 cm; Wt 135.9 kg
--- OUTSIDE RECORDS SUMMARY | 2016-09-11 10:51 | XMS REPORT | Continuity of Care Document ---
Author Author [facility] Organization [facility] Address Unknown Phone Unavailable Allergies Medications Problems Procedures Results Encounters ACCT No. Visit Date/Time Discharge Status Pt. Type Provider Facility Loc./Unit Complaint [id number] 02/12/2015 09:37:00 02/12/2015 23 :59:59 CLS Outpatient
--- OUTSIDE RECORDS SUMMARY | 2016-09-11 10:51 | XMS REPORT | Continuity of Care Document ---
Author Author [facility] Organization [facility] Address Unknown Phone Unavailable Support Name Relationship Address Phone ELIDA TORRES Caregiver [address] [place] [address] QUINCY CORNELIUS APRN Caregiver [address] [place] [address] MARCELO VACA MD Caregiver [address] [place] [phone] IRMA CORNELIUS Next Of Kin [address] [place] [address] Insurance Providers Payer Name Policy Number Subscriber Name Relationship [employer] [id number] Lilly Gregory 20 Self Advance Directives Directive [...] week - Needs BMP due to meds [phone] 02/07 at 09:15 Dr Segovia for Diabetes F/U [phone] left message Wound Clinic on 02/06/14 at [...] of your legs. 3.During office hours, call [phone] 4. After hours, please call [facility] at [phone], and have the wire wrapping machine operator page your Surgeon IN THE EVENT OF AN EMERGENCY, seek medical care at the nearest Emergency Room General Information: Dr. Grady wants to see you in follow up on 02/07/14. You will need to get an INR on 02/01/[address] Grady with the result [phone]. Condition at time of discharge: Good Plan [...] F (96.8 - 99.1) Temperature (Calculated Celsius) 35.38479 degrees C (36.0 - 37.3) Temperature Source [...] 02, 2013 10:59am LAB RESULTS - SCANNED [id number] - Lipase January 26, 2014 12:38pm 292 [...] TO AMOUNT OF WBCS.DAP/LAB - Urine Specific [place] January 26, 2014 12:30pm 1.025 - Has [...] Amina Albicans Name: LILLY GREGORY Unit #: [id number] : 1950 Sex: F Loc / Svc: ED DOS: 01/26/14 Signed Report #: [id number] DIAGNOSTIC IMAGING REPORT TYPE OF EXAM: FOOT [...] procedures. Encounters Encounter Location Date/Time Discharged Inpatient [facility] 01/26/14 2:29pm Recent Diagnosis Hyperglycemia Hyponatremia Renal insufficiency UTI (urinary tract infection) Dehydration Tinea corporis Diabetes mellitus type 2 with hyperosmolarity, uncontrolled COPD (chronic obstructive pulmonary disease) CAD (coronary artery disease) Morbid obesity with BMI of 40.0-44.9, adult HTN (hypertension) Hypokalemia Hypothyroidism
--- OUTSIDE RECORDS SUMMARY | 2016-09-11 10:53 | XMS REPORT | Continuity of Care Document ---
Author Author [facility] Organization [facility] Address Unknown Phone Unavailable Support Name Relationship Address Phone QUINCY CORNELIUS APRN Caregiver [address] [place] [address] PIERCE DUKE MD Caregiver [address] [place] [address] [place] [phone] IRMA CORNELIUS Next Of Kin [address] [place] [address] Insurance Providers Payer Name Policy Number Subscriber Name Relationship [employer] [id number] Lilly Gregory 20 Self Chief Complaint and Reason for Visit Chief Complaint Fall Reason for Visit Hyperglycemia Tinea corporis Hyponatremia Renal insufficiency [id number] Dehydration Problems Medical Problems Problem Onset Date [...] week - Needs BMP due to meds [phone] 02/07 at 09:15 Dr Segovia for Diabetes F/U [phone] left message Wound Clinic on 02/06/14 at 3:30pm Patient Instructions: if blood sugar drops below 70, use glucose tabs as directed. Wound/Incision Care: See Wound care note Condition at time of discharge: Good see patient instructions Plan of Care Discharge Date 01/31/14 6:58pm Disposition 02 TO [facility] Condition at Discharge Improved Instructions/Education [...] F (96.8 - 99.1) Temperature (Calculated Celsius) 37.01137 degrees C (36.0 - 37.3) Pulse Rate [...] TO AMOUNT OF WBCS.DAP/LAB - Urine Specific [place] January 26, 2014 12:30pm 1.025 - Has [...] 02, 2013 10:59am LAB RESULTS - SCANNED [id number] - HDL Cholesterol Direct May 04, 2012 [...] Amina Albicans Name: LILLY GREGORY Unit #: [id number] : 1950 Sex: F Loc / Svc: ED DOS: 02/13/14 Signed Report #: [id number] DIAGNOSTIC IMAGING REPORT TYPE OF EXAM: PELVIS [...] Encounters Encounter Location Date/Time Departed Emergency Room [facility] 02/13/14 11:25am Discharged Inpatient [facility] 01/26/14 2:29pm Recent Diagnosis
--- OUTSIDE RECORDS SUMMARY | 2016-09-11 10:53 | XMS REPORT | Continuity of Care Document ---
Author Author [facility] Organization [facility] Address Unknown Phone Unavailable Support Name Relationship Address Phone CLARISSE EVANS MD Caregiver [address] [place] [address] Unavailable CLARISSE EVANS MD Caregiver [address] [place] [address] Unavailable QUINCY CORNELIUS APRN Caregiver [address] [place] [address] Unavailable CHARLES BURNS Next Of Kin Unknown [phone] Insurance Providers Guarantor Lilly Gregory Address [address] [place] [address] Email [email or web address] Payer [facility] Policy Number [id number] Subscriber's Name Lilly Gregory Relationship 18 Self Effective Date 16 Expiration Date 16 Advance Directives Directive Response Recorded Date/Time Ordered Resuscitation Status Full Code 08/13/16 11:56am Resuscitation Documents on File No 08/13/16 12:23pm DPOA for Healthcare Only No 08/13/16 12:23pm Living Will No 08/13/16 12:23pm Problems Active Problems Medical Problem Onset Date Status Acute renal failure Unknown Resolved Acute respiratory failure with hypoxemia Unknown Acute Atherosclerosis of [place] artery of both lower extremities Unknown Chronic Atherosclerotic heart disease of [place] coronary artery without angina pectoris Unknown Chronic Atrial fibrillation ~04/2016 Chronic Bilateral knee pain Unknown Acute CAD [...] Resolved Hyponatremia Unknown Resolved Hypothyroidism Unknown Chronic Incontinence Unknown Chronic Left hip pain Unknown Acute Morbid obesity with BMI of 40.0-44.9, adult Unknown Acute Morbid obesity with BMI of 45.0-49.9, adult Unknown Morbid obesity with BMI of 50.0-59.9, adult Unknown Chronic Morbid obesity with BMI of 50.0-59.9, adult Unknown Morbid obesity with BMI of 50.0-59.9, adult Unknown OA (osteoarthritis) Unknown Chronic Open thigh wound Unknown Acute PVD (peripheral vascular disease) Unknown Chronic Pneumonia Unknown Acute Renal insufficiency Unknown Chronic Right leg DVT ~04/2016 Self-care deficit for hygiene Unknown Severe sepsis Unknown Resolved Skin breakdown Unknown Suspected DVT (deep vein thrombosis) Unknown Acute Tinea corporis Unknown Acute Tobacco dependency Unknown Chronic Type II diabetes mellitus, uncontrolled Unknown Chronic UTI (urinary tract infection) Unknown Acute Urinary incontinence Unknown lumbar strain/spasms Unknown Acute Past Problems Medical [...] Route Directions Days Qty Instructions Start Date Amlodipine Besylate 5 Mg Tablet 5 Mg Oral Daily 30 Tablet 08/16/16 Budesonide (Pulmicort Flexhaler 180) 120 Puff/Inhaler Inha 1 Puff Oral Inhalation Twice A Day 1 Inhaler 12/25/15 Hydralazine Hcl 50 Mg Tablet 1 Tab Oral With Meals And At Bedtime 120 Tablet BEST TAKEN WITH MEALS. 08/16/16 Insulin Detemir (Levemir) 100 Unit/Ml Inj 20 Unit Sub-Q Bedtime 1 Bottle 08/16/16 Insulin Lispro (Humalog) 100 Unit/Ml Inj 7 Unit Sub-Q 0745 5 Bottle 08/16/16 Insulin Lispro (Humalog) 100 Unit/Ml Inj 7 Unit Sub-Q 1715 1 Bottle 08/16/16 Insulin Lispro (Humalog) 100 Unit/Ml Inj 7 Unit Sub-Q 1145 1 Bottle 08/16/16 Levothyroxine Sodium (Levothroid) 25 Mcg Tablet 25 Mcg Oral Before Breakfast 05/03/12 Nystatin 50,000,000 Unit Powder.ea. 1 Applic Topically Three Times A Day 30 Days 5 Tube 04/26/16 Pantoprazole Sodium 40 Mg Tablet.dr 40 Mg Oral Before Breakfast 01/26/14 Simvastatin 40 Mg Tablet 40 Mg Oral Bedtime 30 Tablet 08/16/16 Warfarin Sodium 5 Mg Tablet 5 Mg Oral Give At Noon 30 Tablet Take 1-1/ 2 tablets at noon time on August 17. Dr. Rivesr will inform you of how much warfarin to take after lab work on Thursday08/16/16 Past Home Medications Medication Directions Ordered Status [...] Oral Three Times A Day 05/03/12 Discontinued Clopidogrel Bisulfate (Clopidogrel) 75 Mg Tablet, 75 Mg Oral Daily 04/04/15 Discontinued Furosemide 40 Mg Tablet, 40 Mg [...] Date/Time Onset Date Status Reason for Hospitalization deficit of self care, skin breakdown 08/16/2016 6: 09pm Not Applicable Not Applicable Chewing Tobacco Status No 01/25/2013 12:26am Not Applicable Not Applicable Hx Substance Use No 04/25/2016 2:11pm Not Applicable Not Applicable Hx Alcohol Use No 04/25/2016 2:11pm Not Applicable Not Applicable Has the pt used tobacco in the last 12 months No 08/13/2016 12:27pm Not Applicable Not Applicable Tobacco Usage smoke 04/04/2015 5:44pm Not Applicable Not Applicable Query Response Start Date Stop Date Smoking Status Former smoker Hospital Discharge Instructions Instructions: Care Instructions: Reason for Hospitalization: deficit of self care, skin breakdown I was in the hospital because (patient own words): i have a sore on my leg, and butt. Discharge Diet: 1800-calorie ADA diet Discharge Activity: Up with walker Follow Up Appointments: Follow-up this coming week with Dr. Jaspal Rivers Follow-up sometime in August with Dr. Wynn Follow-up with Dr. Whelan as scheduled Pending Lab / Results: No Pending Lab Patient Instructions: Check Blood sugars fasting and 2 hours after meals Oxygen at 1-3 L per nasal cannula Wound/Incision Care: Home health should come and evaluate her wound and replace dressing if needed Pain Scale Utilized to Educate Patient: 0-10 Pain Scale Pain Management/Treatment: Tylenol Expected Signs/Symptoms: Mild fatigue Notify Physician If: Increased shortness of breath, chest pain, lightheadedness, blood sugars frequently over 300 or any blood sugars less than 60 During Business Hours:: Please call the physician's office at [facility] After Business Hours:: Please call [phone] and have the bumper machine operator page the physician. Condition at time of discharge: Good Plan of Care Discharge Date 08/16/16 9:32pm Disposition 01 DISCHARGED HOME, SELF-CARE Instructions/Education Provided Acute Wound Care (DC) Wound Healing and Your Diet (DC) Prescriptions See Medication Section Additional Instructions/Education You'll need lab work with home health on Thursday including a CBC, basic metabolic profile, and INR to be sent to Dr. Rivers. When she has relapsed work back she can decide how much warfarin you should take. She can also decide whether or not to restart your Lasix/furosemide and potassium. Care Plan and Goals See Discharge Instructions Section Functional Status Query Response Date Recorded Mobility Status Ambulatory w/assist August 16, 2016 6:09pm Assistive Devices Front Wheeled Walker August 16, 2016 6:09pm Activity Limitations Weakness Fatigue Shortness of breath August 16, 2016 6:09pm Feeding Ability Independent August 16, 2016 6:09pm Toileting Ability Assist August 16, 2016 6:09pm Grooming Ability Assist August 16, 2016 6:09pm Dressing Ability Assist August 16, 2016 6:09pm Driving Ability Dependent August 16, 2016 6:09pm Housework Ability Dependent August 16, 2016 6:09pm Meal Preparation Ability Dependent August 16, 2016 6:09pm Stair Climbing Ability Dependent August 16, 2016 6:09pm Ability to complete ADL's impeded by Impaired Mobility August 16, 2016 6:09pm Cognitive/Perceptual Impairments Impaired vision Impaired hearing August 16, 2016 6:09pm Visual Assistive Devices Glasses With patient August 16, 2016 11:35am Preferred Method of Learning Reading Listening August 16, 2016 11:35am Allergies, Adverse Reactions, Alerts Allergen Type Severity Reaction Status Last Updated Aspirin Allergy Unknown Active 04/03/16 Bupropion Allergy Unknown Active 04/03/16 heparin Allergy Severe THROMBOCYTOPENIA Active 08/13/16 Immunizations Immunization Event Date Type Not Given Reason Dose Number Lot Number [employer] VIS Given Influenza, seasonal, injectable 08/13/16 Administered 1 [id number] [employer] 12/22/14 Query Response on File Recorded Date/Time Hx Influenza Vaccination No 08/13/16 12:27pm Hx Pneumococcal Vaccination N unknown 08/13/16 12:27pm Hx Influenza Vaccination No 08/13/16 12:27pm Influenza Vaccine Hx 07/09/2015 08/13/16 2:10pm Vital Signs Acute Vital Signs Vital Response Date/Time Temperature (Fahrenheit) 98.1 deg F (96.8 - 99.1) 08/16/2016 4:24am Temperature (Calculated Celsius) 36.31046 degrees C (36.0 - 37.3) 08/16/2016 4:24am Pulse Rate (adult) 57 bpm (60 - 100) 08/16/2016 4:39pm Respiratory Rate 18 breaths/min (10 - 20) 08/16/2016 4:39pm O2 Sat by Pulse Oximetry 94 % (90 - 100) 08/16/2016 4:39pm Oxygen Delivery Method Nasal Cannula 08/14/2016 8:44pm Oxygen Delivery Method Nasal Cannula 08/16/2016 4:39pm Oxygen Flow Rate 1.00 L/min 08/16/2016 4:39pm Blood Pressure 143/64 mm Hg 08/16/2016 4:39pm Blood Pressure Source Automatic Cuff 08/16/2016 4:39pm Height (Feet) 5 feet 08/15/2016 11:54pm Height (Inches) 2.00 inches 08/15/2016 11:54pm Weight (Kilograms) 131.500 kg 08/15/2016 9:33am Body Mass Index (BMI) 53.6 08/13/2016 12:21pm Results Laboratory Results Test Name Result Units Flags Reference Collection Date/Time Result Date/ Time Comments White Blood Count 9.1 T/MM3 4.5-11.0 08/16/2016 4:25am 08/16/2016 4: 59am Red Blood Count 3.32 M/MM3 L 4.00-5.20 08/16/2016 4:25am 08/16/2016 4: 59am Hemoglobin 9.5 GM/DL L 12-16 08/16/2016 4:25am 08/16/2016 4:59am Hematocrit 31.5 % L 36-46 08/16/2016 4:08/16/2016 4:59am Mean Corpuscular Volume 94.9 UM3 80-100 08/16/2016 4:08/16/2016 4: 59am Mean Corpuscular Hemoglobin 28.6 UUG 26-34 08/16/2016 4:2016 4:59am Mean Corpuscular Hemoglobin Concent 30.2 GM/DL L 31-37 08/16/2016 4:08/16/2016 4:59am RDW Standard Deviation 45.1 FL 36.9-50.2 08/16/2016 4:08/16/2016 4 :59am Platelet Count 244 T/MM3 130-400 08/16/2016 4:08/16/2016 4:59am Mean Platelet Volume 10.2 UM3 9.4-12.4 08/16/2016 4:08/16/2016 4: 59am Neutrophils (%) (Auto) 69.0 % H 33-66 08/16/2016 4:08/16/2016 4: 59am Lymphocytes (%) (Auto) 19.7 % L 23-45 08/16/2016 4:08/16/2016 4: 59am Monocytes (%) (Auto) 6.5 % 0-9.0 08/16/2016 4:08/16/2016 4:59am Eosinophils (%) (Auto) 4.4 % H 0-4 08/16/2016 4:08/16/2016 4:59am Basophils (%) (Auto) 0.2 % 0-2 08/16/2016 4:08/16/2016 4:59am Immature Granulocyte % (Auto) 0.2 % 0.0-0.5 08/16/2016 4:2016 4:59am Absolute Neutrophils (auto) 6.3 T/MM3 1.8-7.7 08/16/2016 4:2016 4:59am Absolute Lymphocytes (auto) 1.8 T/MM3 1-4.8 08/16/2016 4:2016 4:59am Absolute Monocytes (auto) 0.6 T/MM3 0-0.8 08/16/2016 4:2508/16/2016 4:59am Absolute Eosinophils (auto) 0.4 T/MM3 0-0.5 08/16/2016 4:252016 4:59am Absolute Basophils (auto) 0.0 T/MM3 0-0.2 08/16/2016 4:2508/16/2016 4:59am Absolute Immature Granulocyte (auto 0.02 T/MM3 0.00-0.03 08/16/2016 4: 2508/16/2016 4:59am Prothromb Time International Ratio 1.20 H 0.76-1.04 08/16/2016 4:2508/16/2016 5:01am THERAPUTIC RANGE=2.00-3.00 FOR ANTI-THROMBOSIS THERAPUTIC RANGE=2.50-3.50 FOR IMPLANTED VALVE Icterus Index < 2 0-7 08/16/2016 4:08/16/2016 5:10am Chemistry Specimen Hemolysis < 15 0-25 08/16/2016 4:08/16/2016 5 :10am 0-25: Specimen Exhibited No Hemolysis. Turbidity < 20 0-20 08/16/2016 4:08/16/2016 5:10am Sodium Level 144 MEQ/L 134-144 08/16/2016 4:08/16/2016 5:10am Potassium Level 3.9 MEQ/L 3.6-5 08/16/2016 4:08/16/2016 5:10am Chloride Level 96 MEQ/L L 98-107 08/16/2016 4:08/16/2016 5:10am Carbon Dioxide Level 38 MEQ/L H 22-30 08/16/2016 4:08/16/2016 5: 10am Anion Gap 10 MEQ/L 5-15 08/16/2016 4:08/16/2016 5:10am Blood Urea Nitrogen 37.0 MG/DL H 7-17 08/16/2016 4:08/16/2016 5: 10am Creatinine 1.9 MG/DL H 0.7-1.2 08/16/2016 4:08/16/2016 5:10am BUN/Creatinine Ratio 20 RATIO 6-26 08/16/2016 4:25am 08/16/2016 5:10am Glomerular Filtration Rate Calc 27 08/16/2016 4:2508/16/2016 5: 10am Glucose Level 204 MG/DL H 65-110 08/16/2016 4:2508/16/2016 5:10am Calculated Osmolality 292 MOSM/KG H 261-280 08/16/2016 4:252016 5:10am Calcium Level 9.4 MG/DL 8.4-10.2 08/16/2016 4:25am 08/16/2016 5:10am Phosphorus Level 5.3 MG/DL H 2.5-4.5 08/15/2016 4:41am 08/15/2016 5: 37am Total Bilirubin 0.60 MG/DL 0.20-1.30 08/13/2016 12:58pm 08/13/2016 1: 40pm Alkaline Phosphatase 113 U/L 38-126 08/13/2016 12:58pm 08/13/2016 1: 40pm Total Protein 7.0 G/DL 6.3-8.2 08/13/2016 12:58pm 08/13/2016 1:40pm Albumin 3.4 G/DL L 3.5-5.0 08/14/2016 5:44am 08/14/2016 6:33am Globulin 3.2 G/DL 2.4-3.6 08/13/2016 12:58pm 08/13/2016 1:40pm Albumin/Globulin Ratio 1.2 RATIO 1.1-2.2 08/13/2016 12:58pm 08/13/2016 1:40pm Aspartate Amino Transf (AST/SGOT) 21 U/L 14-36 08/13/2016 12:58pm 08/13 1:40pm Alanine Aminotransferase (ALT/SGPT) 35 U/L 9-52 08/13/2016 12:58pm 1:40pm Magnesium Level 2.1 MG/DL 1.6-2.3 08/14/2016 5:44am 08/14/2016 6:33am Plasma Lactate 1.6 MMOL/L 0.6-2.2 08/13/2016 12:58pm 08/13/2016 1:43pm Iron Level 45 UG/DL 37-170 08/14/2016 2:33pm 08/15/2016 1:55am Total Iron Binding Capacity 243 UG/DL L 261-497 08/14/2016 2:33pm 2016 1:11am Ferritin 83.8 NG/ML 11-264 08/14/2016 2:33pm 08/15/2016 2:34am Vitamin B12 Level 605 PG/ML 239-931 08/14/2016 2:33pm 08/15/2016 3: 05am Folate 12.1 NG/ML 2.76-20 08/14/2016 2:33pm 08/15/2016 3:05am NORMAL ADULT RANGE: 2.76->20 ng/mL Glucometer 243 mg/dL H 65-110 08/16/2016 8:37pm 08/16/2016 8:40pm Microbiology Results Procedure Source Organism/Result Collection Date/Time Result Date/Time Result Status Blood Culture Peripheral/Iv Start NO GROWTH AFTER 72 HOURS 08/13/2016 1: 03pm 08/16/2016 1:09pm Preliminary Name: LILLY GREGORY Unit #: [id number] : 1950 Sex: F DISCHARGE SUMMARY Admit Date: 08/15/16 Report #: [id number] [facility] 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 Acute kidney injury on chronic kidney disease-creatinine at discharge is 1.9 DVT of the leg diagnosed in April 2016 Atrial fibrillation Diabetes mellitus-poorly controlled COPD-requiring 1-3 L of oxygen per nasal cannula Morbid obesity Peripheral edema Coronary artery disease Peripheral vascular disease Chronic anticoagulation with Coumadin resumed-very slow increase in INR 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 The patient did receive 1 dose of Lovenox accidentally-platelets have remained stable for the past 3 days in the normal range Procedures None Laboratory Item Value Date Time Prothromb Time International Ratio 1.20 H 08/16/16 0425 Prothromb Time International Ratio 1.13 H 08/15/16 0441 Prothromb Time International Ratio 1.14 H 08/14/16 0544 Prothromb Time International Ratio 1.14 H 08/13/16 1258 Vitamin B12 Level 605 PG/ML 08/14/16 1433 Folate 12.1 NG/ML 08/14/16 1433 Total Bilirubin 0.60 MG/DL 08/13/16 1258 Iron Level 45 UG/DL 08/14/16 1433 Total Iron Binding Capacity 243 UG/DL L 08/14/16 1433 Ferritin 83.8 NG/ML 08/14/16 1433 Laboratory Tests Test 08/15/16 04:41 08/15/16 06:10 08/15/16 10:06 08/15/16 14:04 White Blood Count 9.6T/MM3 (4.5-11.0) Red Blood Count 3.30M/MM3 (4.00-5.20) Hemoglobin 9.6GM/DL (12-16) Hematocrit 31.5% (36-46) Mean Corpuscular Volume 95.5UM3 (80-100) Mean Corpuscular Hemoglobin 29.1UUG (26-34) Mean Corpuscular Hemoglobin Concent 30.5GM/DL (31-37) RDW Standard Deviation 45.6FL (36.9-50.2) Platelet Count 231T/MM3 (130-400) Mean Platelet Volume 10.1UM3 (9.4-12.4) Immature Granulocyte % (Auto) 0.3% (0.0-0.5) Neutrophils (%) (Auto) 67.6% (33-66) Lymphocytes (%) (Auto) 19.9% (23-45) Monocytes (%) (Auto) 6.9% (0-9.0) Eosinophils (%) (Auto) 5.1% (0-4) Basophils (%) (Auto) 0.2% (0-2) Absolute Immature Granulocyte (auto 0.03T/MM3 (0.00-0.03) Absolute Neutrophils (auto) 6.5T/MM3 (1.8-7.7) Absolute Lymphocytes (auto) 1.9T/MM3 (1-4.8) Absolute Monocytes (auto) 0.7T/MM3 (0-0.8) Absolute Eosinophils (auto) 0.5T/MM3 (0-0.5) Absolute Basophils (auto) 0.0T/MM3 (0-0.2) Prothromb Time International Ratio 1.13 (0.76-1.04) Turbidity < 20 (0-20) Sodium Level 143MEQ/L (134-144) Potassium Level 3.8MEQ/L (3.6-5) Chloride Level 96MEQ/L (98-107) Carbon Dioxide Level 37MEQ/L (22-30) Anion Gap 10MEQ/L (5-15) Blood Urea Nitrogen 35.0MG/DL (7-17) Creatinine 1.9MG/DL (0.7-1.2) Glomerular Filtration Rate Calc 27 BUN/Creatinine Ratio 18RATIO (6-26) Glucose Level 205MG/DL (65-110) Calculated Osmolality 289MOSM/KG (261-280) Calcium Level 9.4MG/DL (8.4-10.2) Phosphorus Level 5.3MG/DL (2.5-4.5) Icterus Index < 2 (0-7) Chemistry Specimen Hemolysis < 15 (0-25) Glucometer 213mg/dL (65-110) 267mg/dL (65-110) 324mg/dL (65-110) Test 08/15/16 20:06 08/16/16 04:25 08/16/16 10:09 08/16/16 14:08 Glucometer 265mg/dL (65-110) 288mg/dL (65-110) 316mg/dL (65-110) White Blood Count 9.1T/MM3 (4.5-11.0) Red Blood Count 3.32M/MM3 (4.00-5.20) Hemoglobin 9.5GM/DL (12-16) Hematocrit 31.5% (36-46) Mean Corpuscular Volume 94.9UM3 (80-100) Mean Corpuscular Hemoglobin 28.6UUG (26-34) Mean Corpuscular Hemoglobin Concent 30.2GM/DL (31-37) RDW Standard Deviation 45.1FL (36.9-50.2) Platelet Count 244T/MM3 (130-400) Mean Platelet Volume 10.2UM3 (9.4-12.4) Immature Granulocyte % (Auto) 0.2% (0.0-0.5) Neutrophils (%) (Auto) 69.0% (33-66) Lymphocytes (%) (Auto) 19.7% (23-45) Monocytes (%) (Auto) 6.5% (0-9.0) Eosinophils (%) (Auto) 4.4% (0-4) Basophils (%) (Auto) 0.2% (0-2) Absolute Immature Granulocyte (auto 0.02T/MM3 (0.00-0.03) Absolute Neutrophils (auto) 6.3T/MM3 (1.8-7.7) Absolute Lymphocytes (auto) 1.8T/MM3 (1-4.8) Absolute Monocytes (auto) 0.6T/MM3 (0-0.8) Absolute Eosinophils (auto) 0.4T/MM3 (0-0.5) Absolute Basophils (auto) 0.0T/MM3 (0-0.2) Prothromb Time International Ratio 1.20 (0.76-1.04) Turbidity < 20 (0-20) Sodium Level 144MEQ/L (134-144) Potassium Level 3.9MEQ/L (3.6-5) Chloride Level 96MEQ/L (98-107) Carbon Dioxide Level 38MEQ/L (22-30) Anion Gap 10MEQ/L (5-15) Blood Urea Nitrogen 37.0MG/DL (7-17) Creatinine 1.9MG/DL (0.7-1.2) Glomerular Filtration Rate Calc 27 BUN/Creatinine Ratio 20RATIO (6-26) Glucose Level 204MG/DL (65-110) Calculated Osmolality 292MOSM/KG (261-280) Calcium Level 9.4MG/DL (8.4-10.2) Icterus Index < 2 (0-7) Chemistry Specimen Hemolysis < 15 (0-25) Microbiology Cultures 2 are negative after 3 days Radiology DATE OF EXAM: 08/14/16 ORDERING DOCTOR: CLARISSE EVANS MD TYPE OF EXAM: US RENAL REASON FOR EXAM: mild alo on ckd Indication: ITS.REASON: mild alo on ckd PROCEDURE: US RENAL: Encounter: Initial Comparison: Renal ultrasound dated April 06, [address] angiogram dated January 25, 2013 Technique: Grayscale and color Doppler sonographic imaging of both kidneys was performed. FINDINGS: Limited visualization of the left kidney due to patient body habitus and acoustic windows. Both kidneys are present with normal cortical thickness. No gross hydronephrosis. The right kidney measures 11.7 cm in length, and the left kidney measures 11.8 cm in length. Bilateral renal cysts as seen on the prior CT. The left-sided cyst has enlarged, now measuring up to 3 cm in diameter. IMPRESSION: No hydronephrosis. History of Present Illness Cha was seen by both PCP (Dr. Rivers) and purchase price analyst (Dr. Whelan) on 08/13. Dr. Whelan increased Levemir and introduced Novolog before meals d/t hyperglycemia ranging from 200 to "HI" on monitor. Dr. Rivers noted macerated skin to both posterior legs, thought to be from urinary incontinence and assoc. poor self-hygiene. Arrangements were then made for direct admission under the hospitalist service. Her skin breakdown is complicated by the fact that the patient walks "as little as possible" - she states that her legs don't support her, and feel weak , and she has too big of a belly. Also urinary incontinence increased since PAYER SPECIALIST at increased Lasix dose a few weeks ago. This has helped her leg swelling, but has made it difficult for her significant other to keep her dry. She had a significant illness the end of Apr, 2016 (ALO and severe hyperkalemia), and post- discharge was sent to [facility] for a couple months. After that, she lived with her niece in [place], and finally moved back in with her SO at the beginning of July. ROS was only positive for leg weakness, chronic cough that is slightly worse over the last couple of days, and chronic shortness of breath. Hospital Course The patient was admitted on 08/13/2016 with failure of self-care, incontinence of urine and skin breakdown on the thighs. During the hospital course she was found to have multiple medical issues. She had not been compliant with many of her medications. Regarding urinary incontinence we recommended scheduled toileting every 2 hours while awake and waking up once at night to go to the bathroom. She was given incontinence supplies by [facility]. Regarding excoriation to the thighs, this has improved with topical lotion. The patient was seen by the wound and skin nurse that she had a shear wound on the right posterior thigh. Mepilex dressing was placed on it. This can be followed up with home health The patient had history of DVT in April 2016 and had not been taking her Coumadin. She also has paroxysmal atrial fibrillation. She had not been taking her amiodarone. Dr. Wynn recommended discontinuation of amiodarone. Regarding her coronary artery disease and peripheral vascular disease he recommended discontinuation of Plavix since it did been greater than 1 year after cardiac stent. He recommended restarting Coumadin for her DVT and paroxysmal atrial fibrillation. During the hospital course INR is very slow to increase on the day of discharge she was given 7.5 mg of Coumadin. She will take another 7.5 mg of Coumadin tomorrow and will have an INR the following day for 08/04/2016 that should be called to Dr. Rivers to determine further Coumadin dosing. The patient does have a history of heparin-induced thrombocytopenia. She was accidentally given a dose of Lovenox 1 for bridging on 08/14/2016. Fortunately, platelets have remained steady since that time in the mid 200 range. Her INR today is only 1.2. She will not receive any bridging. Because of her kidney disease she is likely not a good candidate for other anticoagulants. Regarding diabetes, the patient saw Dr. Whelan on the day of admission and he gave recommendations regarding insulin. She will remain on insulin as written in discharge summary. She needs to monitor her Accu-Cheks and follow up with Dr. Whelan as scheduled Regarding anemia, her hemoglobin is approximately 2 g lower than it was in April. At that time her iron, B-12 and folate were normal. They were rechecked this hospitalization and are all still normal. When she was seen at [facility] in April she saw a teacher assistant oncologist who gave her a possible diagnosis of monoclonal gammopathy of undetermined significance. We will recheck a CBC on Thursday with home health. Consider follow-up with heme on regarding worsening anemia. It may be related to her chronic kidney disease as well. Regarding chronic kidney disease, with reinitiation of diuretics for lower extremity edema her creatinine did increase from 1.7-1.9. Lasix was held on the day of discharge. She can get a basic metabolic profile on Thursday and Dr. Rivers can decide whether or not to restart her Lasix and/or potassium. Renal sonogram did not show any hydronephrosis. The patient may benefit from follow-up with a objects conservator. Regarding debility PT and OT will continue through home health. She is to walk with a walker. She is to be as active as possible. Regarding peripheral edema, resuming Lasix when okay with Dr. Rivers. Guarding COPD oxygen saturations are currently-95% on 1 L. She is chronically on oxygen. She can continue 1-3 L of oxygen per nasal cannula. Consider follow-up to see if oxygen can be weaned down. She is at risk for sleep apnea and could consider evaluation for sleep apnea if it has not been done in the past. Regarding coronary artery disease, atrial fibrillation, peripheral vascular disease recommend follow-up with Dr. Wynn this month. Regarding hypertension she has fair blood pressure control on Norvasc and hydralazine. On the day of discharge the patient is alert and in no acute distress. She is breathing comfortably. She feels ready for dismissal to home. Home health has been arranged. Chest is clear to a uscultation. Cardiovascular reveals a regular rate and rhythm. Abdomen is soft and nontender. Legs reveal chronic lower edema with erythema below the knees. Greater than 35 minutes of time was spent on dismissal day. I will try to reach Dr. Rivers to discuss discharge planning with her. Problems: (1) Self-care deficit for hygiene (2) Skin breakdown (3) Incontinence Status: Chronic (4) COPD (chronic obstructive pulmonary disease) Status: Chronic (5) Morbid obesity with BMI of 50.0-59.9, adult (6) CAD (coronary artery disease) Status: Chronic (7) Chronic kidney disease, stage III (moderate) Status: Chronic (8) Hypothyroidism Status: Chronic (9) HTN (hypertension) Status: Chronic (10) Type II diabetes mellitus, uncontrolled Status: Chronic (11) PVD (peripheral vascular disease) Status: Chronic (12) Atrial fibrillation Onset Date: ~ 04/2016 Status: Chronic (13) Right leg DVT Onset Date: ~ 04/2016 (14) GERD (gastroesophageal reflux disease) Status: Chronic Code Status Full Code Home Meds Active Scripts Warfarin Sodium (Warfarin Sodium) 5 Mg Tablet, 5 MG PO NOON, #30 TAB Take 1-1/2 tablets at noon time on August 17. Dr. Rivers will inform you of how much warfarin to take after lab work on Thursday Prov:CLARISSE EVANS MD 08/16/16 Hydralazine HCl (Hydralazine HCl) 50 Mg Tablet, 1 TAB PO WMHS, #120 TAB BEST TAKEN WITH MEALS. Prov:CLARISSE EVANS MD 08/16/16 Insulin Lispro (Humalog) 100 Unit/Ml Inj, 7 UNIT SQ 1145, #1 BOTTLE Prov:CLARISSE EVANS MD 08/16/16 Insulin Lispro (Humalog) 100 Unit/Ml Inj, 7 UNIT SQ 1715, #1 BOTTLE Prov:CLARISSE EVANS MD 08/16/16 Insulin Lispro (Humalog) 100 Unit/Ml Inj, 7 UNIT SQ 0745, #5 BOTTLE Prov:CLARISSE EVANS MD 08/16/16 Insulin Detemir (Levemir) 100 Unit/Ml Inj, 20 UNIT SQ HS, #1 BOTTLE Prov:CLARISSE EVANS MD 08/16/16 Simvastatin (Simvastatin) 40 Mg Tablet, 40 MG PO HS, #30 TAB Prov:CLARISSE EVANS MD 08/16/16 Amlodipine Besylate (Amlodipine Besylate) 5 Mg Tablet, 5 MG PO DAILY, #30 TAB Prov:CLARISSE EVANS MD 08/16/16 Nystatin (Nystatin) 50,000,000 Unit Powder.ea., 1 APPLIC TOP TID for 30 Days, # 5 TUBE Prov:LEAH WRIGHT MD 04/26/16 Budesonide (Pulmicort Flexhaler 180) 120 Puff/Inhaler Inha, 1 PUFF ORAL INH BID , #1 INHALER Prov:JUDY MUHAMMAD MD 12/25/15 Reported Medications Pantoprazole Sodium (Pantoprazole Sodium) 40 Mg Tablet.dr, 40 MG PO ACB 01/26/14 Levothyroxine Sodium (Levothroid) 25 Mcg Tablet, 25 MCG PO ACB 05/03/12 Discontinued Reported Medications Clopidogrel Bisulfate (Clopidogrel) 75 Mg Tablet, 75 MG PO DAILY 04/04/15 Face to Face Encounter I met with patient on the day of dismissal and discussed follow up appointments , medications, and safety plan. Discharge Disposition Dismiss to home with home health Copies To 1: CHALINO WYNN MD; JASPAL RIVERS; KAYLI WHELAN MD, STEPHANIE L MD Aug 16, 2016 16:19 Procedures No known history of procedures. Encounters Encounter Location Arrival/Admit Date Discharge/Depart Date Attending Provider Discharged Inpatient [facility] 08/15/16 5:02pm 08/16/16 9:32pm CLARISSE EVANS MD
[2016-09-11] MEDS ORDERED: AMLO5TAB2 PO (11:12)
[2016-09-11] MEDS ORDERED: HYDR-4181 PO (11:14)
[2016-09-11] MEDS ORDERED: HYDR-4180 PO (11:14)
[2016-09-11] MEDS ORDERED: AMIO200T2 PO (11:14)
[2016-09-11] MEDS ORDERED: SIMV40TA5 PO (11:15)
--- OUTSIDE RECORDS SUMMARY | 2016-09-11 11:17 | XMS REPORT | Continuity of Care Document ---
Author Author [facility] Organization [facility] [employer] [facility] Address Unknown Phone Unavailable Allergies Medications Problems Procedures Results Encounters ACCT No. Visit Date/Time Discharge Status Pt. Type Provider Facility Loc./Unit Complaint [id number] 02/12/2015 09:37:00 02/12/2015 23 :59:59 CLS Outpatient
--- OUTSIDE RECORDS SUMMARY | 2016-09-11 11:17 | XMS REPORT | Continuity of Care Document ---
Author Author [facility] Organization [facility] Address Unknown Phone Unavailable Support Name Relationship Address Phone ELIDA TORRES Caregiver [address] [place] [address] QUINCY CORNELIUS APRN Caregiver [address] [place] [address] MARCELO VACA MD Caregiver [address] [place] [phone] IRMA CORNELIUS Next Of Kin [address] [place] [address] Insurance Providers Payer Name Policy Number Subscriber Name Relationship [employer] [id number] Lilly Gregory 20 Self Advance Directives Directive [...] week - Needs BMP due to meds [phone] 02/07 at 09:15 Dr Segovia for Diabetes F/U [phone] left message Wound Clinic on 02/06/14 at [...] of your legs. 3.During office hours, call [phone] 4. After hours, please call [facility] at [phone], and have the stretch machine operator page your Surgeon IN THE EVENT OF AN EMERGENCY, seek medical care at the nearest Emergency Room General Information: Dr. Grady wants to see you in follow up on 02/07/14. You will need to get an INR on 02/01/[address] Grady with the result [phone]. Condition at time of discharge: Good Plan [...] F (96.8 - 99.1) Temperature (Calculated Celsius) 35.88742 degrees C (36.0 - 37.3) Temperature Source [...] 02, 2013 10:59am LAB RESULTS - SCANNED [id number] - Lipase January 26, 2014 12:38pm 292 [...] TO AMOUNT OF WBCS.DAP/LAB - Urine Specific [place] January 26, 2014 12:30pm 1.025 - Has [...] Amina Albicans Name: LILLY GREGORY Unit #: [id number] : 1950 Sex: F Loc / Svc: ED DOS: 01/26/14 Signed Report #: [id number] DIAGNOSTIC IMAGING REPORT TYPE OF EXAM: FOOT [...] procedures. Encounters Encounter Location Date/Time Discharged Inpatient [facility] 01/26/14 2:29pm Recent Diagnosis Hyperglycemia Hyponatremia Renal insufficiency UTI (urinary tract infection) Dehydration Tinea corporis Diabetes mellitus type 2 with hyperosmolarity, uncontrolled COPD (chronic obstructive pulmonary disease) CAD (coronary artery disease) Morbid obesity with BMI of 40.0-44.9, adult HTN (hypertension) Hypokalemia Hypothyroidism
--- NOTE | 2016-09-11 11:18 | NUR ---
CATH ST CATH FOR UA DONE
--- OUTSIDE RECORDS SUMMARY | 2016-09-11 11:18 | XMS REPORT | Continuity of Care Document ---
Author Author [facility] Organization [facility] Address Unknown Phone Unavailable Support Name Relationship Address Phone QUINCY CORNELIUS APRN Caregiver [address] [place] [address] PIERCE DUKE MD Caregiver [address] [place] [address] [place] [phone] IRMA CORNELIUS Next Of Kin [address] [place] [address] Insurance Providers Payer Name Policy Number Subscriber Name Relationship Sanchez [employer] [id number] Lilly Gregory 20 Self Chief Complaint and Reason for Visit Chief Complaint Fall Reason for Visit Hyperglycemia Tinea corporis Hyponatremia Renal insufficiency [id number] Dehydration Problems Medical Problems Problem Onset Date [...] week - Needs BMP due to meds [phone] 02/07 at 09:15 Dr Segovia for Diabetes F/U [phone] left message Wound Clinic on 02/06/14 at 3:30pm Patient Instructions: if blood sugar drops below 70, use glucose tabs as directed. Wound/Incision Care: See Wound care note Condition at time of discharge: Good see patient instructions Plan of Care Discharge Date 01/31/14 6:58pm Disposition 02 TO [facility] Condition at Discharge Improved Instructions/Education [...] F (96.8 - 99.1) Temperature (Calculated Celsius) 37.50720 degrees C (36.0 - 37.3) Pulse Rate [...] TO AMOUNT OF WBCS.DAP/LAB - Urine Specific [place] January 26, 2014 12:30pm 1.025 - Has [...] 02, 2013 10:59am LAB RESULTS - SCANNED [id number] - HDL Cholesterol Direct May 04, 2012 [...] Amina Albicans Name: LILLY GREGORY Unit #: [id number] : 1950 Sex: F Loc / Svc: ED DOS: 02/13/14 Signed Report #: [id number] DIAGNOSTIC IMAGING REPORT TYPE OF EXAM: PELVIS [...] Encounters Encounter Location Date/Time Departed Emergency Room [facility] 02/13/14 11:25am Discharged Inpatient [facility] 01/26/14 2:29pm Recent Diagnosis
[2016-09-11] MEDS ORDERED: FURO40TA5 PO (11:19)
[2016-09-11] MEDS ORDERED: DOCU100T10 PO (11:20)
[2016-09-11] MEDS ORDERED: WARF5TAB6 PO (11:21)
[2016-09-11] MEDS ORDERED: INSU100V12 SQ (11:21)
[2016-09-11] MEDS ORDERED: INSU100V SQ (11:22)
--- NOTE | 2016-09-11 11:22 | NUR ---
LAB LAB IN ROOM FOR BLOOD DRAW
[2016-09-11 11:40] LABS: BLOOD, URINE NEGATIVE (NEGATIVE); COLOR,URINE YELLOW (YELLOW); LEUKOCYTE ESTERASE ,URINE TRACE (NEGATIVE); NITRITE,URINE POSITIVE (NEGATIVE); UROBILINOGEN,URINE 0.2 EU/DL (NORMAL)
--- NOTE | 2016-09-11 11:48 | NUR ---
RADIOLOGY PT TO RADIOLOGY PER CART
[2016-09-11 11:49] LABS: WBC CLUMPS,URINE MODERATE; WBC,URINE 20-30 /HPF (0-5)
[2016-09-11 11:50] LABS: BACTERIA,URINE 4+ (NEGATIVE); RBC,URINE 0-1 /HPF (0-3)
[2016-09-11 11:55] LABS: BASOPHILS % (AUTO) 0.2 % (0-2); EOSINOPHILS # (AUTO) 0.4 T/MM3 (0-0.5); EOSINOPHILS % (AUTO) 4.7 % (0-4); HCT - HEMATOCRIT 34.3 % (36-46); HGB - HEMOGLOBIN 10.6 GM/DL (12-16); IMMATURE GRANULOCYTE # (AUTO) 0.04 T/MM3 (0.00-0.03); IMMATURE GRANULOCYTE % (AUTO) 0.4 % (0.0-0.5); LYMPHOCYTES # (AUTO) 1.3 T/MM3 (1-4.8); LYMPHOCYTES % (AUTO) 13.4 % (23-45); MEAN CORPUSCULAR HGB CONC(MCHC 30.9 GM/DL (31-37); MEAN PLATELET VOLUME 9.5 UM3 (9.4-12.4); MONOCYTES # (AUTO) 0.6 T/MM3 (0-0.8); NEUTROPHILS % (AUTO) 75.3 % (33-66); RED BLOOD COUNT 3.65 M/MM3 (4.00-5.20); WBC - WHITE BLOOD COUNT 9.3 T/MM3 (4.5-11.0)
[2016-09-11 11:56] LABS: PROTHROMBIN TIME 64.9 SEC (9.31-12.49)
[2016-09-11 12:00] LABS: ALBUMIN 3.9 G/DL (3.5-5.0); ALBUMIN/GLOBULIN RATIO 1.2 RATIO (1.1-2.2); ALKALINE PHOSPHATASE 114 U/L (38-126); ALT (SGPT) 34 U/L (9-52); ANION GAP 12 MEQ/L (5-15); AST (SGOT) 22 U/L (14-36); BUN/CREATININE RATIO 27 RATIO (6-26); CALCIUM 9.7 MG/DL (8.4-10.2); CHLORIDE 100 MEQ/L (98-107); CO2 - CARBON DIOXIDE 31 MEQ/L (22-30); CREATININE 1.4 MG/DL (0.7-1.2); GLOMERULAR FILTRATION RATE 38; GLUCOSE 488 MG/DL (65-110); INR 5.95 (0.76-1.04); POTASSIUM 5.1 MEQ/L (3.6-5); SODIUM 143 MEQ/L (134-144); TOTAL PROTEIN 7.2 G/DL (6.3-8.2)
--- NOTE | 2016-09-11 12:02 | NUR ---
RADIOLOGY PT FROM RADIOLOGY PER CART
[2016-09-11] MEDS ORDERED: CEFTRIAXONE I.V. (ER USE ONLY) 1 G in NORMAL SALINE 100 ML IV ONE (12:15)
[2016-09-11] MEDS ORDERED: NORMAL SALINE 1,000 ML IV ONE (12:15)
--- NOTE | 2016-09-11 12:16 | ERPDOC ---
Departure Disposition Decision Date: Sep 11, 2016 Disposition Decision Time: 18:33 Disposition: 01 DISCHARGED HOME, SELF-CARE Impression Impression Impression: Primary Impression: Elevated INR Additional Impression: Hyperkalemia Severity: Moderate Condition: Improved Seen By: Physician only Referrals: QUINCY CORNELIUS APRN (Family) Patient Instructions: Elevated INR (ED) Problems/Meds/Labs Reviewed?: Yes Medications reviewed and manag: Yes Additional Instructions: Hold your Coumadin dose for the next 2 days. Need to check an INR on Thursday. Home health order is given to have this done. If you develop any active bleeding,you will need to return to the ED immediately. You have been set up to go to [facility] and need to follow up with them as far as admission for care. Follow up care ordered?: Yes Mental Status: Alert, Oriented HPI - General Medical General Chief Complaint: General Stated Complaint: HIGH INR Time Seen by Provider: 11:05 HPI - General Medical Initial Comments 66-year-old female seen by PCP and sent to the ED with INR of 8. Patient does have other medical issues including COPD, CHF, diabetes mellitus, hyperlipidemia , hypothyroidism, renal insufficiency. She is on Coumadin for history of atrial fibrillation and DVT in April of last year. She has a standard dose, and states she has been consistent with it. She also states she has not changed her diet. She checked her blood sugar this morning which is in the low 200s. Patient is concerned about sores on her leg, underneath her buttock on the right side. She also has been having dysuria. During the exam she said she needed me to get a nurse so that she could urinate. But as I stepped out to get the nurse, she said "never mind and I am peeing on myself" Patient has no spontaneous bleeding, no nosebleeds, no bleeding in the throat or mouth, no significant new bruising. No rectal bleeding Allergies: Coded Allergies: heparin (Verified Allergy, Severe, THROMBOCYTOPENIA, 09/11/16) aspirin (Verified Allergy, Unknown, 09/11/16) bupropion (Verified Allergy, Unknown, 09/11/16) Past History Patient Medical History Problem List Updates: Atrial fibrillation and DVT noted on an H&P from April. Patient Surgical History 1. Cholecystectomy 2. Hysterectomy 3. Cardiac catheterization/RCA stent June 2012 4. 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 Wynn Past Medical History Metabolic: diabetes, hypercholesterolemia, hypertension, hypothyroidism, other Cardiac: CAD Respiratory: COPD, pneumonia GI: GERD Female: renal insufficiency Musculoskeletal: osteoarthritis Hematologic: other Psychological: anxiety, depression Surgical History General: gallbladder Cardiac: cardiac cath, cardiac stent Reproductive/: hysterectomy Family History Family PMH: FOUND: CAD Vaccines Hx Influenza Vaccination: No Hx Pneumococcal Vaccination: No (unknown) Social History # of Packs/Tins per Day: 1 # of Years: 50 Substance Use Type: does not use Alcohol Intake: none Sexuality: male partner Household Members: significant other Current Occupational Status: disabled Advance Directives: Yes Full Code Record Review Pertinent history updated: Yes Review of Systems Constitutional Constitutional: weakness, weight gain Cardiovascular Cardiac: see HPI Rhythm/Rate: see HPI General: see HPI Musculoskeletal General: see HPI Integumentary Skin: see HPI All other Systems All Other Systems: Reviewed and Negative Physical Exam General General Nourishment: adult, obese Vitals and Pain First Documented Vital Signs Date Time Temp Pulse Resp B/P Pulse Ox O2 Delivery O2 Flow Rate FiO2 09/11/16 10:50 97.6 73 22 206/81 93 Nasal Cannula 3.00 Weight: Kilograms: 135.900 Height (feet): 5 Height (inches): 2.00 Triage Pain Scale: Normal Exams: Head: Normocephalic w/o trauma Eyes: Pupils are PERRLA w/ EOMI, No scleral icterus, irritation, or foreign bodies noted Chest/Resp: Clear all morales, with good airflow, and symmetry bilaterally CV: Regular rate and rhythm (no irregularity of rate or rhythm noted on this exam today.), without murmur or gallop, Pulses 2+ all extremities, capillary refill, <2 seconds all ext., no pedal edema noted Abdomen: Bowel sounds positive, soft, non-tender, non-distended, no hepatosplenomegaly, masses or bruits noted Neurologic: Patient is alert, and oriented, cranial nerves, motor/sensory/ cerebellar, exams w/o gross deficits, to observation Differential Diagnoses Considering: Other (elevated INR, accidental overdose, side effect of medication.) Progress Results/Orders Orders Procedure Category Date Status Time Cbc W/Auto LAB 09/11/16 Complete Diff-Reflex Manual 11:05 Cmp - Comprehensive LAB 09/11/16 Complete Metabolic 11:05 Chest, Pa & Lateral RAD 09/11/16 Resulted 11:05 INR LAB 09/11/16 Complete UA, LAB 09/11/16 Complete Dip&Micro(Complete) & 11:21 Urine Culture MAINOR 09/11/16 In Process 11:51 Iv Lock (Ed Only) EDM 09/11/16 Transmitted 12:10 Normal Saline (Normal PHA 09/11/16 Complete Saline Iv) 12:15 Ceftriaxone I.V. (Er PHA 09/11/16 Complete Use Only) (Rocephin 12:15 Physician Consult CONS 09/11/16 Transmitted Lab Results Laboratory Tests Test 09/11/16 11:21 09/11/16 11:25 Urine Collection Type Straight cath Urine Color Yellow Urine Turbidity Clear Urine pH 5.0 Urine Specific [place] 1.015 Urine Protein 1+ Urine Glucose (UA) 3+ Urine Ketones Negative Urine Blood Negative Urine Nitrite Positive Urine Bilirubin Negative Urine Urobilinogen 0.2EU/DL Urine Leukocyte Esterase Trace Urine RBC 0-1/HPF Urine WBC 20-30/HPF Urine WBC Clumps Moderate Urine Bacteria 4+ Urine Culture Indicated Cult reflexed &setup White Blood Count 9.3T/MM3 Red Blood Count 3.65M/MM3 Hemoglobin 10.6GM/DL Hematocrit 34.3% Mean Corpuscular Volume 94.0UM3 Mean Corpuscular Hemoglobin 29.0UUG Mean Corpuscular Hemoglobin Concent 30.9GM/DL RDW Standard Deviation 44.6FL Platelet Count 250T/MM3 Mean Platelet Volume 9.5UM3 Immature Granulocyte % (Auto) 0.4% Neutrophils (%) (Auto) 75.3% Lymphocytes (%) (Auto) 13.4% Monocytes (%) (Auto) 6.0% Eosinophils (%) (Auto) 4.7% Basophils (%) (Auto) 0.2% Absolute Immature Granulocyte (auto 0.04T/MM3 Absolute Neutrophils (auto) 7.0T/MM3 Absolute Lymphocytes (auto) 1.3T/MM3 Absolute Monocytes (auto) 0.6T/MM3 Absolute Eosinophils (auto) 0.4T/MM3 Absolute Basophils (auto) 0.0T/MM3 Prothromb Time International Ratio 5.95 Turbidity < 20 Sodium Level 143MEQ/L Potassium Level 5.1MEQ/L Chloride Level 100MEQ/L Carbon Dioxide Level 31MEQ/L Anion Gap 12MEQ/L Blood Urea Nitrogen 38.0MG/DL Creatinine 1.4MG/DL Glomerular Filtration Rate Calc 38 BUN/Creatinine Ratio 27RATIO Glucose Level 488MG/DL Calculated Osmolality 306MOSM/KG Calcium Level 9.7MG/DL Total Bilirubin 0.60MG/DL Icterus Index < 2 Aspartate Amino Transf (AST/SGOT) 22U/L Alanine Aminotransferase (ALT/SGPT) 34U/L Alkaline Phosphatase 114U/L Total Protein 7.2G/DL Albumin 3.9G/DL Globulin 3.3G/DL Albumin/Globulin Ratio 1.2RATIO Chemistry Specimen Hemolysis < 15 Medications Current ED Medications Sodium Chloride 1,000 ml @ 1,000 mls/hr Q1H ONCE IV Last administered on 12:22; Start 09/11/16 at 12:15; Stop 09/11/16 at 13:14; Status DC Ceftriaxone Sodium/Sodium Chloride (Rocephin/NS) 100 ml @ 100 mls/hr O ONCE IV Last administered on 09/11/16 12:22; Start 09/11/16 at 12:15; Stop at 13:14; Status DC Progress Progress Patient had some elevated potassium, and elevated INR. Discussed nomogram on the INR with hospitalist. Patient is not appropriate for admission because of this, and outpatient treatment recommended. She will need to hold 2 days doses, then repeat INR. No vitamin K as needed as she is not actively bleeding. Case management was consulted to try and help with placement in a alf, several hours were spent getting set up, and usually every obstacles overcome. However ultimately patient is going to have to wait until the third of next month when she gets her next checked, with a $500 for her admission. She will be discharged home pending admission to the alf. She needs to recheck INR on Thursday, order is sent for home health nursing to do this. SCOTT FELIX MD Sep 11, 2016 12:16
--- NOTE | 2016-09-11 12:25 | NUR ---
MEDICATION IVF INFUSING AND ROCEPHIN INFUSING ORDERED
--- NOTE | 2016-09-11 12:47 | DI ---
INDICATION: ITS.REASON: dyspnea PROCEDURE: CHEST 2-VIEWS UPRIGHT (PA \T\ LAT) Encounter: Initial COMPARISON: April 25, 2016 Findings: The lungs are stable in appearance without new focal airspace consolidation. There is no pleural effusion or pneumothorax. The cardiac silhouette remains enlarged. The pulmonary vascularity and mediastinal contours are unchanged. IMPRESSION: Stable appearance of the chest without acute cardiopulmonary disease. .
--- NOTE | 2016-09-11 14:00 | NUR ---
IVF IVF INFUSED AT THIS TIME
--- NOTE | 2016-09-11 14:40 | NUR ---
ACTIVITY PT UP TO BSC WITH 1 ASSIST TO VOID.
--- NOTE | 2016-09-11 14:45 | NUR ---
PLACEMENT CASE MANAGEMENT WORKING ON POSSIBLE RETIREMENT PLACEMENT
--- NOTE | 2016-09-11 16:05 | NUR ---
SCREEN DILSHAD WITH [facility] HERE TO SEE PT
--- NOTE | 2016-09-11 17:00 | NUR ---
STATUS PT CONTINUES TALKING WITH PRISON STAFF
--- NOTE | 2016-09-11 17:43 | NUR ---
JORDYN VOICEMAIL FROM ROGER WITH [employer]; HE DECLINED PT. SPOKE WITH DILSHAD AT [facility]. HE SAID HE CAN ACCEPT THE PT; HOWEVER, PT NEEDS TO PAY HER PORTION OF THE PATIENT LIABILITY UP FRONT (APPROX $530.00). THIS WORKER AND DILSHAD SPOKE WITH PT ABOUT THIS. SHE SAID SHE GETS PAID ON THE 1ST AND 3RD OF THE MONTH AND THEREFORE WILL NOT HAVE THE MONEY UNTIL THEN. ARRANGED THAT THIS WORKER WILL ASSIST WITH COORDINATION BETWEEN PT, [facility], AND PT'S DOCTOR (DR. TOVAR) FOR ORDERS AND TRANSFER TO [facility] WHEN PT HAS MONEY (SO POSSIBLY ON 09-21-16). PT STATED SEVERAL TIMES THAT SHE WILL PAY THE MONEY TO [place]. THIS WORKER ALSO REVIEWED WITH HER A SAFE HOME DC. THIS WORKER SPOKE WITH PT AND EVA SOLIS ABOUT THIS. BOTH STATED THEY WANTED PT TO RETURN HOME, AND IRMA WILL CONTINUE CARING FOR HER AT HOME UNTIL SHE GOES TO [place]. PT STATED SHE ORIGINALLY WANTED PLACEMENT TODAY DUE TO: INCREASED URINATION, NOT BEING ABLE TO SLEEP, AND HER LEG SORES. (THIS WORKER REVIEWED THESE WITH DR. FELIX; HE SAID PT HAS A UTI, SO THIS WILL BE TREATED. HE SAID HE LOOKED AT HER LEGS AND THERE ARE NO SORES/ULCERS BUT RATHER A RED SPOT SUCH A PIMPLE). HOME HEALTH THROUGH [facility] IS STILL INVOLVED AND ABLE TO VISIT PT ALSO. PT AND IRMA STATED THEY DO NOT HAVE TRANSPORTATION HOME, AND PT'S PORTABLE O2 TANK IS GETTING VERY LOW. THIS WORKER CALLED WILLA AT [facility]; SHE SAID [facility] CAN WRONG ADDRESS CLERK PT AND PROVIDE OXYGEN, AND BILL MEDICAID. THEY CAN ALSO TAKE IRMA HOME. THIS WORKER RELAYED THIS TO PT AND IRMA, AND ALSO TO DOCTOR AND RN. RN CAN CALL [facility] WHEN PT IS DC'D.
--- NOTE | 2016-09-11 17:55 | NUR ---
REPORT REPORT TO AND CARE ASSUMED BY LINDSAY RICKS
[2016-09-11 18:55] VITALS: BP 178/81; PULSE 64; RESP 20; TEMP 97.6; O2SAT 96
== END 2016-09-11 18:55 | disposition home or self-care (01) ==
LOC: ED 10:47
DX: Z51.81 Encounter for therapeutic drug level monitoring (principal); Z79.01 Long term (current) use of anticoagulants; E87.5 Hyperkalemia; R30.0 Dysuria
CPT/HCPCS: 71020; 80053; 81001; 85025; 85610; 87086; 87088; 87186; 96361; 96365; 99284; J0696; J7030; J7050

== ENCOUNTER 2016-09-18 11:47 | Emergency (ER) | payer MEDICAID ==
[~2016-09-18] VITALS: Ht 157.5 cm; Wt 140.0 kg
[~2016-09-18 11:47] MED LIST changes: +AMIO200T2 PO; +DOCU100T10 PO; +FURO40TA5 PO; -NYST10PO TOP
[2016-09-18 11:50] VITALS: Ht 157.5 cm; Wt 140.0 kg
--- OUTSIDE RECORDS SUMMARY | 2016-09-18 11:53 | XMS REPORT | Continuity of Care Document ---
Author Author [facility] Organization [facility] Address Unknown Phone Unavailable Support Name Relationship Address Phone ELIAD TORRES Caregiver [address] [place] [address] QUINCY CORNELIUS APRN Caregiver [address] [place] [address] MARCELO VACA MD Caregiver [address] [place] [phone] IRMA CORNELIUS Next Of Kin [address] [place] [address] Insurance Providers Payer Name Policy Number Subscriber Name Relationship Sanchez [employer] [id number] Lilly Gregory 20 Self Advance Directives Directive [...] week - Needs BMP due to meds [phone] 02/07 at 09:15 Dr Segovia for Diabetes F/U [phone] left message Wound Clinic on 02/06/14 at [...] of your legs. 3.During office hours, call [phone] 4. After hours, please call [facility] at [phone], and have the drum operator page your Surgeon IN THE EVENT OF AN EMERGENCY, seek medical care at the nearest Emergency Room General Information: Dr. Grady wants to see you in follow up on 02/07/14. You will need to get an INR on 02/01/[address] Grady with the result [phone]. Condition at time of discharge: Good Plan [...] F (96.8 - 99.1) Temperature (Calculated Celsius) 35.23293 degrees C (36.0 - 37.3) Temperature Source [...] 02, 2013 10:59am LAB RESULTS - SCANNED [id number] - Lipase January 26, 2014 12:38pm 292 [...] TO AMOUNT OF WBCS.DAP/LAB - Urine Specific [place] January 26, 2014 12:30pm 1.025 - Has [...] Amina Albicans Name: LILLY GREGORY Unit #: [id number] : 1950 Sex: F Loc / Svc: ED DOS: 01/26/14 Signed Report #: [id number] DIAGNOSTIC IMAGING REPORT TYPE OF EXAM: FOOT [...] procedures. Encounters Encounter Location Date/Time Discharged Inpatient [facility] 01/26/14 2:29pm Recent Diagnosis Hyperglycemia Hyponatremia Renal insufficiency UTI (urinary tract infection) Dehydration Tinea corporis Diabetes mellitus type 2 with hyperosmolarity, uncontrolled COPD (chronic obstructive pulmonary disease) CAD (coronary artery disease) Morbid obesity with BMI of 40.0-44.9, adult HTN (hypertension) Hypokalemia Hypothyroidism
--- OUTSIDE RECORDS SUMMARY | 2016-09-18 11:53 | XMS REPORT | Continuity of Care Document ---
Author Author [facility] Organization [facility] [facility] Address Unknown Phone Unavailable Allergies Medications Problems Procedures Results Encounters ACCT No. Visit Date/Time Discharge Status Pt. Type Provider Facility Loc./Unit Complaint [id number] 02/12/2015 09:37:00 02/12/2015 23 :59:59 CLS Outpatient
--- OUTSIDE RECORDS SUMMARY | 2016-09-18 11:55 | XMS REPORT | Continuity of Care Document ---
Author Author [facility] Organization [facility] Address Unknown Phone Unavailable Support Name Relationship Address Phone QUINCY CORNELIUS APRN Caregiver [address] [place] [address] PIERCE DUKE MD Caregiver [address] [place] [address] [place] [phone] IRMA CORNELIUS Next Of Kin [address] [place] [address] Insurance Providers Payer Name Policy Number Subscriber Name Relationship Sanchez [employer] [id number] Lilly Gregory 20 Self Chief Complaint and Reason for Visit Chief Complaint Fall Reason for Visit Hyperglycemia Tinea corporis Hyponatremia Renal insufficiency [id number] Dehydration Problems Medical Problems Problem Onset Date [...] week - Needs BMP due to meds [phone] 02/07 at 09:15 Dr Segovia for Diabetes F/U [phone] left message Wound Clinic on 02/06/14 at 3:30pm Patient Instructions: if blood sugar drops below 70, use glucose tabs as directed. Wound/Incision Care: See Wound care note Condition at time of discharge: Good see patient instructions Plan of Care Discharge Date 01/31/14 6:58pm Disposition 02 TO [facility] Condition at Discharge Improved Instructions/Education [...] F (96.8 - 99.1) Temperature (Calculated Celsius) 37.04673 degrees C (36.0 - 37.3) Pulse Rate [...] TO AMOUNT OF WBCS.DAP/LAB - Urine Specific [place] January 26, 2014 12:30pm 1.025 - Has [...] 02, 2013 10:59am LAB RESULTS - SCANNED [id number] - HDL Cholesterol Direct May 04, 2012 [...] Amina Albicans Name: LILLY GREGORY Unit #: [id number] : 1950 Sex: F Loc / Svc: ED DOS: 02/13/14 Signed Report #: [id number] DIAGNOSTIC IMAGING REPORT TYPE OF EXAM: PELVIS [...] Encounters Encounter Location Date/Time Departed Emergency Room [facility] 02/13/14 11:25am Discharged Inpatient [facility] 01/26/14 2:29pm Recent Diagnosis
--- OUTSIDE RECORDS SUMMARY | 2016-09-18 12:01 | XMS REPORT | Continuity of Care Document ---
Author Author [facility] Organization [facility] Address Unknown Phone Unavailable Support Name Relationship Address Phone QUINCY CORNELIUS APRN Caregiver [address] [place] [address] Unavailable SCOTT FELIX MD Caregiver [address] [place] [phone] Unavailable GRANT CHARLES Next Of Kin Unknown [phone] Insurance Providers Guarantor Lilly Gregory Address [address] [place] [address] Email [email or web address] [facility] Policy Number [id number] Subscriber's Name DajanellyLilly rasmussen Anay Relationship 18 Self Effective Date 16 Expiration Date 16 Chief Complaint and Reason for Visit Chief Complaint General Reason for Visit [id number] Hyperkalemia Problems Active Problems Medical Problem Onset Date Status Acute renal failure Unknown Resolved Acute respiratory failure with hypoxemia Unknown Acute Atherosclerosis of [place] artery of both lower extremities Unknown Chronic Atherosclerotic heart disease of [place] coronary artery without angina pectoris Unknown Chronic [...] region Unknown Chronic wound of extremity Unknown Elevated INR Unknown Hyperkalemia Unknown Hyperkalemia Unknown Hypoglycemia Unknown Hypoglycemia Unknown Hypoglycemia due to insulin Unknown Leukocytosis Unknown Right lower lobe pneumonia Unknown Urinary tract infection Unknown Medications Current Home Medications Medication Dose Units Route Directions Days Qty Instructions Start Date Amiodarone Hcl 200 Mg Tablet 200 Mg Oral Twice A Day 09/11/16 Amlodipine Besylate 5 Mg Tablet 5 Mg Oral Twice A Day 09/11/16 Budesonide (Pulmicort Flexhaler 180) 120 Puff/Inhaler Inha 1 Puff Oral Inhalation Twice A Day 1 Inhaler 12/25/15 Docusate Sodium (Stool Softener) 100 Mg Tablet 100 Mg Oral Twice A Day 09/11/16 Furosemide 40 Mg Tablet 40 Mg Oral Twice A Day 09/11/16 Hydralazine Hcl 50 Mg Tablet 50 Mg Oral Four Times Daily 09/11/16 Insulin Detemir (Levemir) 100 Unit/Ml Inj 20 Unit Sub-Q Bedtime 09/11/16 Insulin Lispro (Humalog) 100 Unit/Ml Inj 7 Unit Sub-Q Three Times Daily With Meals 09/11/16 Levothyroxine Sodium (Levothroid) 25 Mcg Tablet 25 Mcg Oral Before Breakfast 05/03/12 Pantoprazole Sodium 40 Mg Tablet.dr 40 Mg Oral Before Breakfast 01/26/14 Simvastatin 40 Mg Tablet 40 Mg Oral Bedtime 09/11/16 Warfarin Sodium 5 Mg Tablet 7.5 Mg Oral Daily 09/11/16 Past Home Medications Medication Directions Ordered Status [...] Problem Response Recorded Date/Time Onset Date Status Chewing Tobacco Status No 01/25/2013 12:26am Not Applicable Not Applicable Hx Substance Use No 09/11/2016 11:04am Not Applicable Not Applicable Hx Alcohol Use No 09/11/2016 11:04am Not Applicable Not Applicable Has the pt used tobacco in the last 12 months No 08/13/2016 12:27pm Not Applicable Not Applicable Tobacco Usage smoke 04/04/2015 5:44pm Not Applicable Not Applicable Query Response Start Date Stop Date Smoking Status Unknown if ever smoked Hospital Discharge Instructions No hospital discharge instructions. Plan of Care Discharge Date 09/11/16 6:55pm Disposition 01 DISCHARGED HOME, SELF-CARE Condition at Discharge Improved Instructions/Education Provided Elevated INR (ED) Prescriptions See Medication Section Follow-up Orders INR Entered Date: 09/11/2016 6:35pm Referrals QUINCY CORNELIUS APRN Address: [address] [place] [address] [phone] Additional Instructions/Education Hold your Coumadin dose for the next 2 days. Need to check an INR on Thursday. Home health order is given to have this done. If you develop any active bleeding,you will need to return to the ED immediately. You have been set up to go to [place] and need to follow up with them as far as admission for care. Functional Status No functional status results. Allergies, Adverse Reactions, Alerts Allergen Type Severity Reaction Status Last Updated Aspirin Allergy Unknown Active 09/11/16 Bupropion Allergy Unknown Active 09/11/16 heparin Allergy Severe THROMBOCYTOPENIA Active 09/11/16 Immunizations Immunization Event Date Type Not Given Reason Dose Number Lot Number Salon Shampoo Assistant VIS Given Influenza, seasonal, injectable 08/13/16 Administered 1 [id number] ExtraFootie 12/22/14 Query Response on File Recorded Date/Time Hx Influenza Vaccination No 08/13/16 12:27pm Hx Pneumococcal Vaccination N unknown 08/13/16 12:27pm Hx Influenza Vaccination No 08/13/16 12:27pm Influenza Vaccine Hx 07/09/2015 09/11/16 11:04am Vital Signs Acute Vital Signs Vital Response Date/Time Temperature (Fahrenheit) 97.6 deg F (96.8 - 99.1) 09/11/2016 10:50am Temperature (Calculated Celsius) 36.42251 degrees C (36.0 - 37.3) 09/11/2016 10:50am Pulse Rate (adult) 64 bpm (60 - 100) 09/11/2016 6:00pm Respiratory Rate 20 breaths/min (10 - 20) 09/11/2016 6:00pm O2 Sat by Pulse Oximetry 96 % (90 - 100) 09/11/2016 6:00pm Oxygen Delivery Method Nasal Cannula 08/14/2016 8:44pm Oxygen Delivery Method Nasal Cannula 08/16/2016 4:39pm Oxygen Flow Rate 3.00 L/min 09/11/2016 6:00pm Blood Pressure 178/81 mm Hg 09/11/2016 6:00pm Blood Pressure Source Automatic Cuff 08/16/2016 4:39pm Height (Feet) 5 feet 09/11/2016 10:50am Height (Inches) 2.00 inches 09/11/2016 10:50am Weight (Kilograms) 135.900 kg 09/11/2016 10:50am Body Mass Index (BMI) 54.0 09/11/2016 10:50am Results Laboratory Results Test Name Result Units Flags Reference Collection Date/Time Result Date/ Time Comments Phosphorus Level 5.3 MG/DL H 2.5-4.5 08/15/2016 4:41am 08/15/2016 5: 37am Magnesium Level 2.1 MG/DL 1.6-2.3 08/14/2016 5:44am [...] mg/dL H 65-110 08/16/2016 8:37pm 08/16/2016 8:40pm White Blood Count 9.3 T/MM3 4.5-11.0 09/11/2016 11:2509/11/2016 11: 55am Red Blood Count 3.65 M/MM3 L 4.00-5.20 09/11/2016 11:09/11/2016 11: 55am Hemoglobin 10.6 GM/DL L 12-16 09/11/2016 11:09/11/2016 11:55am Hematocrit 34.3 % L 36-46 09/11/2016 11:09/11/2016 11:55am Mean Corpuscular Volume 94.0 UM3 80-100 09/11/2016 11:09/11/2016 11:55am Mean Corpuscular Hemoglobin 29.0 UUG 26-34 09/11/2016 11:2016 11:55am Mean Corpuscular Hemoglobin Concent 30.9 GM/DL L 31-37 09/11/2016 11: 09/11/2016 11:55am RDW Standard Deviation 44.6 FL 36.9-50.2 09/11/2016 11:09/11/2016 11:55am Platelet Count 250 T/MM3 130-400 09/11/2016 11:09/11/2016 11:55am Mean Platelet Volume 9.5 UM3 9.4-12.4 09/11/2016 11:09/11/2016 11: 55am Neutrophils (%) (Auto) 75.3 % H 33-66 09/11/2016 11:2509/11/2016 11: 55am Lymphocytes (%) (Auto) 13.4 % L 23-45 09/11/2016 11:09/11/2016 11: 55am Monocytes (%) (Auto) 6.0 % 0-9.0 09/11/2016 11:09/11/2016 11:55am Eosinophils (%) (Auto) 4.7 % H 0-4 09/11/2016 11:09/11/2016 11: 55am Basophils (%) (Auto) 0.2 % 0-2 09/11/2016 11:09/11/2016 11:55am Immature Granulocyte % (Auto) 0.4 % 0.0-0.5 09/11/2016 11:2016 11:55am Absolute Neutrophils (auto) 7.0 T/MM3 1.8-7.7 09/11/2016 11:2016 11:55am Absolute Lymphocytes (auto) 1.3 T/MM3 1-4.8 09/11/2016 11:2016 11:55am Absolute Monocytes (auto) 0.6 T/MM3 0-0.8 09/11/2016 11:2016 11:55am Absolute Eosinophils (auto) 0.4 T/MM3 0-0.5 09/11/2016 11:2016 11:55am Absolute Basophils (auto) 0.0 T/MM3 0-0.2 09/11/2016 11:2016 11:55am Absolute Immature Granulocyte (auto 0.04 T/MM3 H 0.00-0.03 09/11/2016 11: 09/11/2016 11:55am Prothromb Time International Ratio 5.95 *H 0.76-1.04 09/11/2016 11:09/11/2016 12:00pm THERAPUTIC RANGE=2.00-3.00 FOR ANTI-THROMBOSIS THERAPUTIC RANGE=2.50-3.50 FOR IMPLANTED VALVE Icterus Index < 2 0-7 09/11/2016 11:09/11/2016 12:00pm Chemistry Specimen Hemolysis < 15 0-25 09/11/2016 11:09/11/2016 12:00pm 0-25: Specimen Exhibited No Hemolysis. Turbidity < 20 0-20 09/11/2016 11:09/11/2016 12:00pm Sodium Level 143 MEQ/L 134-144 09/11/2016 11:09/11/2016 12:00pm Potassium Level 5.1 MEQ/L H 3.6-5 09/11/2016 11:09/11/2016 12:00pm Chloride Level 100 MEQ/L 98-107 09/11/2016 11:09/11/2016 12:00pm Carbon Dioxide Level 31 MEQ/L H 22-30 09/11/2016 11:09/11/2016 12: 00pm Anion Gap 12 MEQ/L 5-15 09/11/2016 11:09/11/2016 12:00pm Blood Urea Nitrogen 38.0 MG/DL H 7-17 09/11/2016 11:09/11/2016 12: 00pm Creatinine 1.4 MG/DL H 0.7-1.2 09/11/2016 11:09/11/2016 12:00pm BUN/Creatinine Ratio 27 RATIO H 6-09/11/2016 11:09/11/2016 12: 00pm Glomerular Filtration Rate Calc 38 09/11/2016 11:09/11/2016 12 :00pm Glucose Level 488 MG/DL H 65-110 09/11/2016 11:09/11/2016 12:00pm Calculated Osmolality 306 MOSM/KG H 261-280 09/11/2016 11:2016 12:00pm Calcium Level 9.7 MG/DL 8.4-10.2 09/11/2016 11:09/11/2016 12:00pm Total Bilirubin 0.60 MG/DL 0.20-1.30 09/11/2016 11:09/11/2016 12: 00pm Alkaline Phosphatase 114 U/L 38-126 09/11/2016 11:09/11/2016 12: 00pm Total Protein 7.2 G/DL 6.3-8.2 09/11/2016 11:09/11/2016 12:00pm Albumin 3.9 G/DL 3.5-5.0 09/11/2016 11:09/11/2016 12:00pm Globulin 3.3 G/DL 2.4-3.6 09/11/2016 11:09/11/2016 12:00pm Albumin/Globulin Ratio 1.2 RATIO 1.1-2.2 09/11/2016 11:09/11/2016 12:00pm Aspartate Amino Transf (AST/SGOT) 22 U/L 14-36 09/11/2016 11:09/11 12:00pm Alanine Aminotransferase (ALT/SGPT) 34 U/L 9-52 09/11/2016 11: 12:00pm Urine Collection Type STRAIGHT CATH 09/11/2016 11:09/11/2016 11:40am Urine Color YELLOW YELLOW 09/11/2016 11:09/11/2016 11:40am Urine Turbidity CLEAR CLEAR 09/11/2016 11:09/11/2016 11:40am Urine Specific [place] 1.015 1.015-1.025 09/11/2016 11:2016 11:40am Urine pH 5.0 5.0-8.0 09/11/2016 11:09/11/2016 11:40am Urine Leukocyte Esterase TRACE A NEGATIVE 09/11/2016 11:2016 11:40am Urine Nitrite POSITIVE A NEGATIVE 09/11/2016 11:09/11/2016 11: 40am Urine Protein 1+ A NEGATIVE 09/11/2016 11:09/11/2016 11:40am Urine Glucose (UA) 3+ A NEGATIVE 09/11/2016 11:09/11/2016 11: 40am Urine Ketones NEGATIVE NEGATIVE 09/11/2016 11:09/11/2016 11: 40am Urine Urobilinogen 0.2 EU/DL NORMAL 09/11/2016 11:09/11/2016 11: 40am Urine Bilirubin NEGATIVE NEGATIVE 09/11/2016 11:09/11/2016 11: 40am Urine Blood NEGATIVE NEGATIVE 09/11/2016 11:09/11/2016 11:40am Urine WBC 20-30 /HPF H 0-5 09/11/2016 11:09/11/2016 11:51am Urine WBC Clumps MODERATE H 09/11/2016 11:09/11/2016 11:51am Urine RBC 0-1 /HPF 0-3 09/11/2016 11:21am 09/11/2016 11:51am Urine Bacteria 4+ H NEGATIVE 09/11/2016 11:21am 09/11/2016 11:51am Urine Culture Indicated CULT REFLEXED &SETUP 09/11/2016 11:21am 11:51am Microbiology Results Procedure Source Organism/Result Collection Date/Time Result Date/Time Result Status Blood Culture Peripheral/Iv Start NO GROWTH AFTER 5 DAYS 08/13/2016 1:03pm 08/18/2016 1:09pm Final Urine Culture Urine, Straight Cath CULTURE INITIATED - RESULTS PENDING 11:51am 09/11/2016 11:52am Preliminary Name: LILLY GREGORY Unit #: [id number] : 1950 Sex: F Admit Date: Loc / Svc: ED Discharge Date: DIAGNOSTIC IMAGING REPORT Report #: [id number] [place], [place] INDICATION: ITS.REASON: dyspnea PROCEDURE: CHEST 2-VIEWS UPRIGHT (PA \T\ LAT) Encounter: Initial COMPARISON: April 25, 2016 Findings: The lungs are stable in appearance without new focal airspace consolidation. There is no pleural effusion or pneumothorax. The cardiac silhouette remains enlarged. The pulmonary vascularity and mediastinal contours are unchanged. IMPRESSION: Stable appearance of the chest without acute cardiopulmonary disease. . Procedures Procedure Status Date Provider(s) Metabolic panel total ca Completed 08/18/16 Encounters Encounter Location Arrival/Admit Date Discharge/Depart Date Attending Provider Departed Emergency Room [facility] 09/11/16 10:47am 09/11/16 6: 55pm SCOTT FELIX MD Registered Clinic [facility] 08/18/16 2:52pm JASPAL TOVAR Discharged Inpatient [facility] 08/15/16 5:02pm 08/16/16 9:32pm AIDEN HAM MD Recent Diagnosis
[2016-09-18] MEDS ORDERED: WARF4TAB6 PO (12:11)
[2016-09-18] MEDS ORDERED: CLOP75TA33 PO (12:11)
[2016-09-18] MEDS ORDERED: NORMAL SALINE 1,000 ML IV ONE (12:15)
--- NOTE | 2016-09-18 12:20 | ERPDOC ---
Departure Disposition Decision Date: September 18, 2016 Disposition Decision Time: 14:14 Disposition: 04 TO [facility] Impression Impression Impression: Primary Impression: UTI (urinary tract infection) Urinary tract infection type: acute cystitis Hematuria presence: without hematuria Qualified Codes: N30.00 - Acute cystitis without hematuria Additional Impression: Weakness Severity: Moderate Condition: Stable Seen By: Mid-level only Referrals: QUINCY CORNELIUS APRN (Family) Problems/Meds/Labs Reviewed?: Yes Medications reviewed and manag: Yes Follow up care ordered?: Yes Mental Status: Alert Scripts Nitrofurantoin Monohyd/M-Cryst (Macrobid 100 mg Capsule) 100 Mg Capsule 1 CAP PO BIDWM, #14 CAP 0 Refills Take 2 (100 mg) capsules, by mouth, twice daily with meals. Prov: BEST MALAVE Javier MOODY 09/18/16 HPI - General Medical General Chief Complaint: Diabetic Problem Stated Complaint: HIGH BLOOD SUGAR Time Seen by Provider: 12:06 Source: patient Exam Limitations: no limitations HPI - General Medical Initial Comments She was at home today in her own home. She was at the edge of her bed and slid to the floor. They had difficulty getting her up so they called EMS. She was found to have a BGM above 400 so was transferred to ER for evaluation. She is supposed to be direct admitted to [facility] today but needs to have her blood sugars addressed first. She was diagnosed with a UTI on Thursday but her has not been able to cotton picker operator the Rx yet. Occurred At: home Onset: Gradual Duration: 12-24 hrs Severity: moderate Associated Symptoms: DENIES: chest pain, cough, diaphoresis, fever/chills, headaches, loss of appetite, malaise, nausea/vomiting, rash, seizure, shortness of breath, syncope, weakness Hx of Similar Symptoms: No Allergies: Coded Allergies: heparin (Verified Allergy, Severe, THROMBOCYTOPENIA, 09/18/16) aspirin (Verified Allergy, Unknown, 09/18/16) bupropion (Verified Allergy, Unknown, 09/18/16) Past History Patient Surgical History 1. Cholecystectomy 2. Hysterectomy 3. Cardiac catheterization/RCA stent June 2012 [address] IN THEATER ATTENDANT in October,, Dr. Wynn Past Medical History Metabolic: diabetes, hypercholesterolemia, hypertension, hypothyroidism, other Cardiac: CAD Respiratory: COPD, pneumonia GI: GERD Female: renal insufficiency Musculoskeletal: osteoarthritis Hematologic: other Psychological: anxiety, depression Surgical History General: gallbladder Cardiac: cardiac cath, cardiac stent Reproductive/: hysterectomy Family History Family PMH: FOUND: CAD Vaccines Hx Influenza Vaccination: No Hx Pneumococcal Vaccination: No (unknown) Social History # of Packs/Tins per Day: 1 # of Years: 50 Substance Use Type: does not use Alcohol Intake: none Sexuality: male partner Household Members: significant other Current Occupational Status: disabled Advance Directives: Yes Full Code Review of Systems Constitutional Constitutional: DENIES: chills, dizziness, fatigue, fever, weakness Eyes Vision: DENIES: blurring, double vision ENMT Ears: DENIES: drainage, pain Sinuses: DENIES: congestion, rhinorrhea Mouth/Throat: DENIES: painful swallowing, scratchy throat, sore throat Cardiovascular Cardiac: DENIES: chest pain, orthopnea Rhythm/Rate: DENIES: irregular beat, palpitations Pulmonary Respiratory: DENIES: cough, dyspnea, sputum, tachypnea GI Upper Abdomen: DENIES: nausea, pain, vomiting Lower Abdomen: DENIES: constipation, diarrhea, pain Integumentary Skin: DENIES: rash Neurological General: DENIES: headache, numbness, tingling, weakness Physical Exam General General Nourishment: well nourished, well developed, appears stated age, no acute distress, adult General Body Habitus: well groomed Vitals and Pain First Documented Vital Signs Date Time Temp Pulse Resp B/P Pulse Ox O2 Delivery O2 Flow Rate FiO2 09/18/16 11:50 98.4 60 20 181/67 95 Room Air 09/18/16 13:27 3.00 Weight: Kilograms: 140.000 Height (feet): 5 Height (inches): 2.00 Triage Pain Scale: RN VS reviewed by Provider: Yes Normal Exams: Neck: Full range of motion, without adenopathy, JVD, bruits or thyromegaly Chest/Resp: Clear all morales, with good airflow, and symmetry bilaterally CV: Regular rate and rhythm, without murmur or gallop, Pulses 2+ all extremities, capillary refill, <2 seconds all ext., no pedal edema noted Abdomen: Bowel sounds positive, soft, non-tender, non-distended, no hepatosplenomegaly, masses or bruits noted Lymphatic: No lymphadenopathy, or lymphedema noted Integumentary: No rashes, hives, or bruising noted Neurologic: Patient is alert, and oriented Psychiatric: Patient exhibits, appropriate attention, emotion and affect Differential Diagnoses Considering: DKA, Encephalitis, Hypo/Hyperglycemia, Hypo/Hyperkalemia, Hypo/ Hypernatremia, Metabolic, UTI Progress Results/Orders Orders Procedure Category Date Status Time Cbc W/Auto LAB 09/18/16 Complete Diff-Reflex Manual Cmp - Comprehensive LAB 09/18/16 Complete Metabolic Ua, Dip Wreflex LAB 09/18/16 Logged Microsc & Cellular Equipment Repairer 12:10 Chest, Pa & Lateral RAD 09/18/16 Resulted Troponin I W LAB 09/18/16 Complete Hemolysis Index EKG EKG 09/18/16 Taken Iv Lock (Ed Only) EDM 09/18/16 Transmitted 12:10 Normal Saline (Normal PHA 09/18/16 Complete Saline Iv) 12:15 Nitrofurantoin PHA 09/18/16 Complete (Macrobid) (Macrobid) 13:30 Insulin Aspart PHA 09/18/16 Complete (Novolog) 13:45 INR LAB 09/18/16 Complete Lab Results Laboratory Tests Test 09/18/16 11:57 09/18/16 12:21 09/18/16 13:30 Glucometer 379mg/dL 379mg/dL White Blood Count 10.1T/MM3 Red Blood Count 3.45M/MM3 Hemoglobin 10.0GM/DL Hematocrit 32.4% Mean Corpuscular Volume 93.9UM3 Mean Corpuscular Hemoglobin 29.0UUG Mean Corpuscular Hemoglobin Concent 30.9GM/DL RDW Standard Deviation 43.6FL Platelet Count 229T/MM3 Mean Platelet Volume 9.5UM3 Immature Granulocyte % (Auto) 0.7% Neutrophils (%) (Auto) 74.9% Lymphocytes (%) (Auto) 13.6% Monocytes (%) (Auto) 5.7% Eosinophils (%) (Auto) 4.6% Basophils (%) (Auto) 0.5% Absolute Immature Granulocyte (auto 0.07T/MM3 Absolute Neutrophils (auto) 7.6T/MM3 Absolute Lymphocytes (auto) 1.4T/MM3 Absolute Monocytes (auto) 0.6T/MM3 Absolute Eosinophils (auto) 0.5T/MM3 Absolute Basophils (auto) 0.1T/MM3 Prothromb Time International Ratio 1.13 Turbidity < 20 Sodium Level 142MEQ/L Potassium Level 5.1MEQ/L Chloride Level 101MEQ/L Carbon Dioxide Level 30MEQ/L Anion Gap 11MEQ/L Blood Urea Nitrogen 38.0MG/DL Creatinine 1.7MG/DL Glomerular Filtration Rate Calc 30 BUN/Creatinine Ratio 22RATIO Glucose Level 434MG/DL Calculated Osmolality 301MOSM/KG Calcium Level 9.1MG/DL Total Bilirubin 0.40MG/DL Icterus Index < 2 Aspartate Amino Transf (AST/SGOT) 23U/L Alanine Aminotransferase (ALT/SGPT) 37U/L Alkaline Phosphatase 102U/L Troponin I < 0.012ng/ml Total Protein 6.5G/DL Albumin 3.4G/DL Globulin 3.1G/DL Albumin/Globulin Ratio 1.1RATIO Chemistry Specimen Hemolysis < 15 Medications Current ED Medications Sodium Chloride (Normal Saline IV) 1,000 ml @ 1,000 mls/hr Q1H ONCE IV ; Start 09/18/16 at 12:15; Stop 09/18/16 at 13:14; Status DC Nitrofurantoin Macrocrystals (Macrobid) 100 mg O ONCE PO Last administered on 09/18/16 13:56; Start 09/18/16 at 13:30; Stop 09/18/16 at 13:31; Status DC Insulin Aspart (Novolog) 7 unit O ONCE SQ Last administered on 09/18/16 13:51 ; Start 09/18/16 at 13:45; Stop 09/18/16 at 13:48; Status DC Progress Progress WBC is 10.1. CMP is normal aside from K+-5.1 and glucose of 379. INR is normal at 1.13. Troponin is negative. Chest xray is clear. Vitals have remained stable. She was unable to void as she had an incontinent episode. Review of old chart does show she was evaluated in ER on 09/11 and had UTI at that time that was not treated. Micro did grow out E. Coli that was sensitive to Macrobid at that time and so will have her start this today. She has been accepted to [facility] so will go ahead with admission from ER to this facility. Xray Xray : Reason for Exam: weakness, elevated BGM Xray: CXR BRYANNA/BEST Hunt COMPUTER PATTERNMAKER September 18, 2016 12:20
--- OUTSIDE RECORDS SUMMARY | 2016-09-18 12:21 | XMS REPORT | Continuity of Care Document ---
Author Author [facility] Organization [facility] Address Unknown Phone Unavailable Support Name Relationship Address Phone ELIDA TORRES Caregiver [address] [place] [address] QUINCY CORNELIUS APRN Caregiver [address] [place] [address] MARCELO VACA MD Caregiver [address] [place] [phone] IRMA CORNELIUS Next Of Kin [address] [place] [address] Insurance Providers Payer Name Policy Number Subscriber Name Relationship [employer] [id number] Lilly Gregory 20 Self Advance Directives Directive [...] week - Needs BMP due to meds [phone] 02/07 at 09:15 Dr Segovia for Diabetes F/U [phone] left message [facility] on 02/06/14 at [...] of your legs. 3.During office hours, call [phone] 4. After hours, please call [facility] at [phone], and have the suction drum drier operator page your Surgeon IN THE EVENT OF AN EMERGENCY, seek medical care at the nearest Emergency Room General Information: Dr. Grady wants to see you in follow up on 02/07/14. You will need to get an INR on 02/01/[address] Grady with the result [phone]. Condition at time of discharge: Good Plan [...] F (96.8 - 99.1) Temperature (Calculated Celsius) 35.21435 degrees C (36.0 - 37.3) Temperature Source [...] 02, 2013 10:59am LAB RESULTS - SCANNED [id number] - Lipase January 26, 2014 12:38pm 292 [...] TO AMOUNT OF WBCS.DAP/LAB - Urine Specific [place] January 26, 2014 12:30pm 1.025 - Has [...] Amina Albicans Name: LILLY GREGORY Unit #: [id number] : 1950 Sex: F Loc / Svc: ED DOS: 01/26/14 Signed Report #: [id number] DIAGNOSTIC IMAGING REPORT TYPE OF EXAM: FOOT [...] procedures. Encounters Encounter Location Date/Time Discharged Inpatient [facility] 01/26/14 2:29pm Recent Diagnosis Hyperglycemia Hyponatremia Renal insufficiency UTI (urinary tract infection) Dehydration Tinea corporis Diabetes mellitus type 2 with hyperosmolarity, uncontrolled COPD (chronic obstructive pulmonary disease) CAD (coronary artery disease) Morbid obesity with BMI of 40.0-44.9, adult HTN (hypertension) Hypokalemia Hypothyroidism
--- OUTSIDE RECORDS SUMMARY | 2016-09-18 12:21 | XMS REPORT | Continuity of Care Document ---
Author Author [facility] Organization [facility] Address Unknown Phone Unavailable Allergies Medications Problems Procedures Results Encounters ACCT No. Visit Date/Time Discharge Status Pt. Type Provider Facility Loc./Unit Complaint [id number] 02/12/2015 09:37:00 02/12/2015 23 :59:59 CLS Outpatient
--- OUTSIDE RECORDS SUMMARY | 2016-09-18 12:23 | XMS REPORT | Continuity of Care Document ---
Author Author [facility] Organization [facility] Address Unknown Phone Unavailable Support Name Relationship Address Phone QUINCY CORNELIUS APRN Caregiver [address] [place] [address] PIERCE DUKE MD Caregiver [address] [place] [address] [place] [phone] IRMA CORNELIUS Next Of Kin [address] [place] [address] Insurance Providers Payer Name Policy Number Subscriber Name Relationship [employer] [id number] Lilly Gregory 20 Self Chief Complaint and Reason for Visit Chief Complaint Fall Reason for Visit Hyperglycemia Tinea corporis Hyponatremia Renal insufficiency [id number] Dehydration Problems Medical Problems Problem Onset Date [...] week - Needs BMP due to meds [phone] 02/07 at 09:15 Dr Segovia for Diabetes F/U [phone] left message [facility]ound [facility] on 02/06/14 at 3:30pm Patient Instructions: if blood sugar drops below 70, use glucose tabs as directed. Wound/Incision Care: See Wound care note Condition at time of discharge: Good see patient instructions Plan of Care Discharge Date 01/31/14 6:58pm Disposition 02 TO [facility] Condition at Discharge Improved Instructions/Education [...] F (96.8 - 99.1) Temperature (Calculated Celsius) 37.11854 degrees C (36.0 - 37.3) Pulse Rate [...] TO AMOUNT OF WBCS.DAP/LAB - Urine Specific Allyn January 26, 2014 12:30pm 1.025 - Has [...] 02, 2013 10:59am LAB RESULTS - SCANNED [id number] - HDL Cholesterol Direct May 04, 2012 [...] Amina Albicans Name: LILLY GREGORY Unit #: [id number] : 1950 Sex: F Loc / Svc: ED DOS: 02/13/14 Signed Report #: [id number] DIAGNOSTIC IMAGING REPORT TYPE OF EXAM: PELVIS [...] Encounters Encounter Location Date/Time Departed Emergency Room [facility] 02/13/14 11:25am Discharged Inpatient [facility] 01/26/14 2:29pm Recent Diagnosis
[2016-09-18 12:34] LABS: BASOPHILS # (AUTO) 0.1 T/MM3 (0-0.2); BASOPHILS % (AUTO) 0.5 % (0-2); EOSINOPHILS # (AUTO) 0.5 T/MM3 (0-0.5); EOSINOPHILS % (AUTO) 4.6 % (0-4); HCT - HEMATOCRIT 32.4 % (36-46); IMMATURE GRANULOCYTE # (AUTO) 0.07 T/MM3 (0.00-0.03); IMMATURE GRANULOCYTE % (AUTO) 0.7 % (0.0-0.5); LYMPHOCYTES # (AUTO) 1.4 T/MM3 (1-4.8); LYMPHOCYTES % (AUTO) 13.6 % (23-45); MEAN CORPUSCULAR HGB CONC(MCHC 30.9 GM/DL (31-37); MEAN CORPUSCULAR VOLUME 93.9 UM3 (80-100); MEAN PLATELET VOLUME 9.5 UM3 (9.4-12.4); MONOCYTES # (AUTO) 0.6 T/MM3 (0-0.8); MONOCYTES % (AUTO) 5.7 % (0-9.0); NEUTROPHILS #(AUTO)-ABSOLUTE 7.6 T/MM3 (1.8-7.7); NEUTROPHILS % (AUTO) 74.9 % (33-66); RED BLOOD COUNT 3.45 M/MM3 (4.00-5.20); WBC - WHITE BLOOD COUNT 10.1 T/MM3 (4.5-11.0)
[2016-09-18 12:47] LABS: ALBUMIN 3.4 G/DL (3.5-5.0); ALBUMIN/GLOBULIN RATIO 1.1 RATIO (1.1-2.2); ALKALINE PHOSPHATASE 102 U/L (38-126); ALT (SGPT) 37 U/L (9-52); ANION GAP 11 MEQ/L (5-15); AST (SGOT) 23 U/L (14-36); BUN/CREATININE RATIO 22 RATIO (6-26); CALCIUM 9.1 MG/DL (8.4-10.2); CHLORIDE 101 MEQ/L (98-107); CO2 - CARBON DIOXIDE 30 MEQ/L (22-30); CREATININE 1.7 MG/DL (0.7-1.2); GLOMERULAR FILTRATION RATE 30; GLUCOSE 434 MG/DL (65-110); POTASSIUM 5.1 MEQ/L (3.6-5); SODIUM 142 MEQ/L (134-144); TOTAL PROTEIN 6.5 G/DL (6.3-8.2)
--- NOTE | 2016-09-18 13:15 | NUR ---
POLYSOMNOGRAPHY TECHNICIAN KARLO POLYSOMNOGRAPHY TECHNICIAN AT BEDSIDE
[2016-09-18] MEDS ORDERED: NITROFURANTOIN (Macrobid) 100mg CAP PO ONE (13:30)
--- NOTE | 2016-09-18 13:39 | DI ---
INDICATION: ITS.REASON: elevated glucose PROCEDURE: CHEST 2-VIEWS UPRIGHT (PA \T\ LAT) Encounter: Initial COMPARISON: September 11, 2016 FINDINGS: Increasing linear markings in the left lower lobe. Interstitial prominence is again seen throughout both lung morales. No new airspace disease on the right. No pleural effusion or pneumothorax. Heart size and mediastinal contours are stable. Impression: Linear probable atelectasis in the left lung. No focal pneumonia. .
[2016-09-18] MEDS ORDERED: INSULIN ASPART 100 UNIT/ML SQ ONE (13:45)
[2016-09-18 14:04] LABS: INR 1.13 (0.76-1.04); PROTHROMBIN TIME 12.3 SEC (9.31-12.49)
--- NOTE | 2016-09-18 14:37 | NUR ---
ACTIVITY PATIENT STANDS AT BEDSIDE AND BRIEF CHANGE, PERICARE PERFORMED. NO OPEN WOUNDS SEEN. REDNESS NOTED. PATIENT TOLERATES ACTIVITY FAIR.
[2016-09-18] MEDS ORDERED: NITR100C4 PO (15:32)
[2016-09-18 15:36] VITALS: BP 179/74; PULSE 59; RESP 20; TEMP 98.4; O2SAT 96
--- NOTE | 2016-09-18 15:36 | NUR ---
DEPART PATIENT SENT WITH [employer] FOR MERGED WITH [facility]. BELONGINGS WITH PATIENT, ENVELOPE WITH ER SUMMARY AND MONEY FOR ADMISSION GIVEN TO [employer]. PATIENT STABLE FOR TRANSPORT.
--- NOTE | 2016-09-18 15:50 | NUR ---
REPORT REPORT GIVEN TO SARAI RICKS AT [facility] AND [facility].
== END 2016-09-18 15:36 ==
LOC: ED 11:47
DX: E11.65 Type 2 diabetes mellitus with hyperglycemia (principal); N30.00 Acute cystitis without hematuria; R53.1 Weakness; Z79.4 Long term (current) use of insulin; Z79.01 Long term (current) use of anticoagulants
CPT/HCPCS: 36415; 71020; 80053; 82948; 84484; 85025; 85610; 93005; 96360; 96372; 99284; J1815